=== PATIENT | female | born 1935 | race Caucasian/White ===

== ENCOUNTER 2023-04-11 15:46 | Emergency (ER) | payer MEDICARE, BC, SELFPAY ==
[2023-04-11] VITALS (8 sets, daily range): BP systolic 144–223; BP diastolic 86–117; BMI 23.0
--- NOTE | 2023-04-11 18:03 | EDRN ---
Dr. Molina at the pts bedside and made aware of the pts elevated blood pressure
--- NOTE | 2023-04-11 18:13 | ED.GENMED ---
History of Present Illness
General
Chief Complaint: Fall
Source: patient and other ([facility])
Time Seen by Provider: 04/11/23 17:59
Travel History
Have you had any contact with someone who has COVID-19?: No
Do you have any symptoms of coronavirus? Fever > 100 degrees, chills, cough, shortness of breath, sore throat, loss of taste or smell, muscle aches, or headache?: No
History of Present Illness
History of Present Illness:
This patient is an 87-year-old female presents emergency department after suffering a fall. Her caregiver who witnessed this was with her then and now at bedside she describes the patient as pulling her walker up the driveway and suffered a
mechanical fall. She suffered abrasions to the left side of her face. There was no loss conscious. Patient is not on thinners.She denies any complaints at this time. She specifically denies neck pain, headache, dizziness, chest pain, shortness
of breath, or other complaints. Patient has a history of multiple falls particularly given her history of Parkinson's
Past History
Past History
ED Past Medical History: Arrthythmia (Atrial fib), GERD, HTN, Hypercholesterolemia, Hypothyroidism and Other (Parkinson's Disease, Overactive bladder)
ED Past Surgical History: Cardiac (Pacemaker), Gynecological (Hysterectomy), Orthopedic and Tonsilectomy
Patient has exhibited threatening behavior?: No
PSI?: No
Social History
Tobacco: Non-smoker
Alcohol: None
Drug: None
Personal:
Living: with family
Employment: Retired
Family History
Family History: Other (nc)
Phy Exam
Physical Exam
Physical Exam:
GENERAL: Alert , in no apparent distress
EYE: pupils equal and reactive, no photophobia , EOMI without pain
NECK: Supple, no significant adenopathy, no midline ttp.
ENT: o/p clr, mmm, no intraoral inj, no hemotymp. There is bruising/mild sts L cheek area, and abrasion lower chin. No laceration, step off, bony tenderness, crepitus. No bergman/raccoon.
CARDIAC: Regular rate and rhythm .
LUNGS: Clear breath sounds bilaterally, no acute respiratory distress, no wheezes/rales/rhonchi
ABDOMEN: Soft, without focal tenderness, no r/g, no cvat
NEUROLOGICAL: Alert , pleasant, conversant, maee, no facial droop, speech clear
SKIN: Warm and dry, skin intact except for abrasion on face.
MUSCULOSKELETAL: No edema, well perfused.
PSYCH: Normal and appropriate interaction.
Course
Orders/Labs/Results
Orders:
Orders
04/11/23 15:[address] [CT Head W/o Iv Contrast] Urgent
Comment:
Reason For Exam: fall with head strike
04/11/23 19:19
Metoprolol [Lopressor] 2.5 mg IV NOW STA
04/11/23 20:14
Metoprolol [Lopressor] 2.5 mg IV NOW STA
Vital Signs
Initial and Last Documented VS:
Initial Vital Signs
Temp Pulse Resp BP Pulse Ox
97.9 F 76 16 194/114 100
04/11/23 15:50 04/11/23 15:50 04/11/23 15:50 04/11/23 15:50 04/11/23 15:50
Last Documented Vital Signs
Temp Pulse Resp BP Pulse Ox
97.9 F 75 15 144/86 96
04/11/23 15:50 04/11/23 21:00 04/11/23 21:00 04/11/23 21:00 04/11/23 21:00
*Critical Care Note
Total Time (30-74mins, 75-104mins- exclusive of procedures): Not Applicable
Update Note
Update Note:
Patient presents to the Emergency Department with ___fall
Number and Complexity of Problems Addressed at the Encounter
� Chronic conditions affecting care:
� Acute Exacerbation and/or Progression of Chronic Illness:
� Differential Diagnosis includes:but not limited to: intracranail bleed/injury, concussion, facial fracture, etc.
Amount and/or Complexity of Data to be Reviewed and Analyzed
� I performed an independent evaluation of and my interpretation is:
EKG:
CT:head ct nad
Xrays:
Laboratory Studies:
Other:
� Review of other/old records reveals: multiple visits in past, htn persistent
� Clinical information was obtained by an independent historian:
� Prescriptions/Medications Considered but not given:
� Further testing considered but not performed:
Risk of Complications and/or Morbidity or Mortality of Patient Management
� Social determinants of health affecting care:
� Discussion with other providers (PCP, Hospitalists, Consultants, etc):
� Escalation of care including admission/observation vs risk of discharge considered: Pt without complaints, however bp quite elevated. Pt taking her pm meds right now.
ED Attending Note
-
Portions of this chart may have been created with voice recognition software.� Occasional wrong word or��sound alike� substitutions may have occurred due to the inherent limitations of voice recognition software.
Discharge Plan
Departure
Patient Disposition: Home (Routine Discharge)
Date of Disposition: 04/11/23
Time of Disposition: 21:12
Patient with high blood pressure during this ER visit?: Yes
Condition: Good
Discharge Problem:
Abrasion, Fall
Instructions: Preventing falls in adults, Skin Abrasions (DC), BLOOD PRESSURE
Prescriptions:
No Action
rosuvastatin 5 MG tablet
5 mg PO QPM
rivastigmine 1 EACH patch 24 hour
13.3 mg transdermal DAILY
Patient Comments:
05/04/22 patient has patch on right back shoulder
memantine 10 MG tablet
10 mg PO BID
losartan 50 MG tablet
50 mg PO BID
cholecalciferol (vitamin D3) 1,000 UNITS tablet
2,000 units PO DAILY
sotalol 80 MG tablet
80 mg PO BID Qty: 60 0RF
levothyroxine [Synthroid] 75 mcg Tablet
75 mcg PO DAILY
acetaminophen [Tylenol] 325 mg Tablet
325 mg PO Q6H PRN (Reason: mild pain)
diltiazem HCl 120 MG capsule,extended release 24hr
120 mg PO BID
carbidopa-levodopa 25-100 mg tablet
2 tab PO QPM@2000
carbidopa-levodopa 25-100 mg tablet
3 tab PO DAILY@0800,1200,1600
sennosides 8.6 mg Tablet
8.6 mg PO DAILY PRN (Reason: CONSTIPATION)
acetaminophen 500 mg Tablet
500 mg PO Q6H PRN (Reason: PAIN)
fluticasone propionate 50 mcg/actuation [place],Suspension
1 spray INTRANASAL PRN PRN (Reason: ALLERGY)
Metamucil Packet
1 packet PO DAILY
Referrals:
Jostin De La O Jr., DO [Family Provider] - Tomorrow
Activity Restrictions/Additional Instructions:
YOUR BLOOD PRESSURE IS ELEVATED TODAY. PLEASE TAKE YOUR MEDICATIONS USUAL, AND HAVE YOUR BLOOD PRESSURE RECHECKED WITHIN 24-48 HOURS. IF YOU DEVELOP FEVER, CHEST PAIN, TROUBLE BREATHING, NUMBNESS, NECK PAIN, SEVERE HEADACHE, ABDOMINAL PAIN,
BLEEDING, CHANGE IN VISION, OR OTHER WORRISOME SIGNS, GO TO THE ER IMMEDIATELY!
Interventions
Interventions:
*Risk Screen - Suicide Last Done: 04/11/23 15:50
*General Assessment Last Done: 04/11/23 15:50
*Neglect/Abuse Screening Last Done: 04/11/23 15:50
ED- Fall Risk Assessment Last Done: 04/11/23 17:56
*ED COVID-19 Vaccine History Last Done: 04/11/23 15:50
ED-Musculoskeletal Assessment Last Done: 04/11/23 17:21
ED- Neurological Assessment Last Done: 04/11/23 17:56
ED-Skin Assessment Last Done: 04/11/23 17:56
--- NOTE | 2023-04-11 18:25 | EDRN ---
this RN cleansed the pts left cheek abrasion and chin abrasion and applied antibiotic ointment on the sites, Dr. Molina was notified
[2023-04-11] MEDS: LOPRESSOR 2.5 MG IV ×2 (19:33→20:19)
== END 2023-04-11 21:34 | disposition home or self-care (01) ==
LOC: EMR 15:46
PROVIDERS: EMERGENCY PHYSICIAN Emergency Medicine; FAMILY PHYSICIAN Family Medicine
DX: S00.81XA Abrasion of other part of head, initial encounter (principal); X58.XXXA Exposure to other specified factors, initial encounter
CPT/HCPCS: 99284; 96374; 96376; 70450

== ENCOUNTER → 2023-04-20 14:54 | Outpatient (REF) | payer MEDICARE, BC, SELFPAY ==
[2023-04-20 17:43] LABS: Urine Albumin Negative (Neg - Trace); Urine Bilirubin Negative (Negative); Urine Character Clear (Clear); Urine Color Yellow; Urine Glucose Negative (Negative); Urine Ketone Trace (Negative); Urine Leukocyte Negative (Negative); Urine Nitrite Negative (Negative); Urine Occult Blood Trace (Negative); Urine Specific Gravity 1.015 (<1.030); Urine Urobilinogen Negative (Neg - 1+)
[2023-04-20 18:05] LABS: Urine Squamous Cell >30 /LPF (Few); Urine White Cell 0-2 /HPF (0-5)
== END ==
LOC: RAD 14:54
PROVIDERS: ATTENDING PHYSICIAN Family Medicine
DX: R07.89 Other chest pain (principal); R41.0 Disorientation, unspecified
CPT/HCPCS: 71101; 81003; 81015; 87086

== ENCOUNTER 2023-05-02 16:48 | Observation (INO) | payer MEDICARE, BC, SELFPAY ==
[2023-05-02] VITALS (8 sets, daily range): BP systolic 121–188; BP diastolic 78–108; BMI 21.5
[2023-05-02 14:17] LABS: Glucose - Point of Care 82 mg/dl (70-99)
--- NOTE | 2023-05-02 14:24 | CON.NEURO ---
Neuro Assessment/Plan
Assessment
IMPRESSIONS/RECOMMENDATIONS:
Abrupt recurrence of syncope and suggested right-sided weakness in a patient with a prior longstanding history of Parkinson's
Patient also has a longstanding history of recurrent falling and 'vasovagal syncope' suggestive of orthostatic hypotension
Plan
Would start anticoagulation as therapy for atrial fibrillation and reduce the patient's ambulation if there is concern regarding ambulation dysfunction producing risk of subdural hematoma and other issues
Initiate abdominal binder to reduce likely orthostasis
Follow orthostatic blood pressures
Continue patient's usual carbidopa levodopa dosed as 25/100 3 tabs 3 times a day and 2 tabs at bedtime
Rehabilitation evaluations especially speech therapy
Continue memantine and rivastigmine for memory stabilization
Check blood work for additional metabolic abnormalities which may be producing recurrent syncope
No clear evidence patient would benefit from additional neuroimaging
Will continue to follow patient. Thank you.
Consultation
Order
Date of Consultation: 05/02/23
Requesting Provider: Emergency department physician
Reason for Consult: Stroke alert
Subjective/Objective
Subjective Data
Date of Service: May 02, 2023
Right-handed
Patient is known to my esteemed colleague due to a longstanding history of Parkinson's disease for which patient has been treated with carbidopa/levodopa. Due to a history of orthostasis, the patient has been given CHRISTIANA stockings. According to
medical records, the patient has been evaluated at [facility] neurology with a described gait dysfunction beginning in 2013 associated with slowing of movements. In 2020 her MoCA result was 16 out of 30 patient was also described at that time as
having REM sleep behavior disorder. For this issue she was placed on donepezil later changed to memantine and rivastigmine.
Today, the patient was in her usual state of health at 1230 hrs., found on the floor at 1320 hrs. when EMS arrived, they found that her weaker on the right than the contralateral side leading to stroke alert called prior to the patient's arrival at
this [facility]'s emergency department. The patient was also described as having a mild decline in patient initially. The patient himself has no recall for these events.
Objective Data
Vital Signs
Temp Pulse Resp BP Pulse Ox
36.6 C 86 14 155/98 99
05/02/23 14:23 05/02/23 14:07 05/02/23 14:07 05/02/23 14:07 05/02/23 14:15
Patient Allergies
bisacodyl [From Dulcolax (bisacodyl)] Allergy (Verified 02/04/23 14:14)
Nausea
CVA Assessment
Onset of Stroke Symptoms
Onset of symptoms known: Yes
Date of onset of symptoms: 05/02/23
Time of onset of symptoms: 13:20
Time pt last seen normal is known: Yes
Date last time pt seen normal: 05/02/23
Time last time pt seen normal: 12:30
NIH Stroke Score
Level of Consciousness: 0 - Alert
LOC Questions: 1-Answers one correctly
LOC Commands: 1-Performs one correctly
Best Horizontal Gaze: 0-Normal
Visual Shell: 0=Normal, no visual loss
Facial Palsy: 0=Normal, symmetrical
Motor - Right Arm: 0=No drift 10 seconds
Motor - Left Arm: 0=No drift 10 seconds
Motor - Right Le-No drift 5 seconds
Motor - Left Le-No drift 5 seconds
Limb Ataxia: 0-Absent
Sensation: 0-Normal
Best Language: 1-Mild aphasia
Dysarthria: 1-Mild slurring
Extinction and Inattention: 0-No abnormality
Total Score:: 4
Tenecteplase Contraindications
Inclusion and Exclusion criteria reviewed: Yes
IAT Contraindications: NIHSS < 6
Review of Systems
-
Unable to obtain full review of systems at this time due to: Dementia
History Source: Patient
All other systems: Reviewed and negative
EENT: Negative Decreased Vision or Swallowing Difficulty
Respiratory: Trouble Breathing
Cardiac: Negative Chest Pain
Abdomen/GI: Constipated; Negative Incontinence of Stool
Genitourinary: Negative Incontinence
Musculoskeletal: Neck Pain; Negative Back Pain
Neuro: Negative Dizzy or Headache
Physical Exam
-
General: No Apparent Distress and Appears Stated Age
Eyes: Round OU, [place] Conjunctivae and No Ptosis; Negative Able to visualize OU
HEENT: Anicteric and Moist Mucous Membranes
Neck: Full Range of Motion
Respiratory: No Dyspnea
Cardiac: No JVD
GI: Non-distended
Skin: Unremarkable
Extremities: No Clubbing, No Cyanosis and No Edema
Psych: Negative Intact Judgement/Insight
Extended Neurological Exam
Mood & Affect: Mood Unremarkable and Affect Unremarkable
Attention Span & Concentration: Awake, Alert, Interactive and Severe Difficulty with 2 Step Request
Memory: Able to Recall (Month and year) and Unable to Recall Personal History
Tremor: Hand Tremor Absent
Involuntary Movement: Other (Mild bilateral shoulder dyskinetic movements, rarely)
Speech: Mildly Reduced Output; Negative Quality Unremarkable (Significantly hypophonic)
Cranial Nerve II: Left Eye: Pupillary Reactivity Unremarkable, Pupillary Size Unremarkable and Visual Shell Grossly Intact
Cranial Nerve II: Right Eye: Pupillary Reactivity Unremarkable, Pupillary Size Unremarkable and Visual Shell Grossly Intact
Cranial Nerves III, IV, : Extraocular Movement: Other (Mild reduction with upgaze, otherwise intact)
Cranial Nerve VII: Facial Symmetry: Normal Facial Symmetry
Cranial Nerve VIII: Hearing: Negative Unremarkable Hearing to Normal Conversational Volume
Cranial Nerves IX, X: Palate Movement: Palate Elevation Symmetric
Cranial Nerve XI: Shoulder Shrug: Unremarkable
Cranial Nerve XII: Tongue Protusion: Midline
Muscle Strength, Overall: Other (Moderate parkinsonism throughout with cogwheeling more in the left arm than the right, legs with cogwheeling rigidity bilaterally, overall no tremors seen mild bradykinesia of the face)
Muscle Bulk & Tone: Bulk Unremarkable and Tone Unremarkable
Pronator Drift: No Drift in Upper Extremities
Deep Tendon Reflexes: Trace Throughout
Cold Sensation: Unable to Assess
Vibration Sensation: Unable to Assess
Touch Sensation: Unremarkable
Coordination: Reaches for Objects without Difficulty
Babinski Sign: Absent Bilaterally
Data Reviewed
-
CT Head: Report Reviewed and Image Reviewed
Orthostatic Testing: Ordered
Labs: Report Reviewed
Reviewed with: Physician, Nurse and Patient
Old Records: Summarized
Medications
-
Home Medications
Medication Instructions Recorded
rosuvastatin 5 mg tablet 5 mg PO QPM High cholesterol 01/12/20
rivastigmine 9.5 mg/24 hour 13.3 mg transdermal DAILY dementia 06/15/21
transdermal patch
memantine 10 mg tablet 10 mg PO BID dementia 06/23/21
cholecalciferol (vitamin D3) 25 2,000 units PO DAILY Supplement 07/16/21
mcg (1,000 unit) tablet
losartan 50 mg tablet 50 mg PO BID Blood pressure 07/16/21
sotalol 80 mg tablet 80 mg PO BID #60 tabs 07/18/21
levothyroxine 75 mcg tablet 75 mcg PO DAILY Thyroid 02/11/22
(Synthroid)
carbidopa 25 mg-levodopa 100 mg 2 tab PO QPM@1999 Neurological 05/04/22
tablet Condition
carbidopa 25 mg-levodopa 100 mg 3 tab PO DAILY@0800,1200,1600 05/04/22
tablet Neurological Condition
diltiazem HCl 120 mg 120 mg PO BID Blood Pressure 05/04/22
capsule,extended release 24 hr
acetaminophen 500 mg tablet 500 mg PO Q6H PRN PAIN 08/15/22
fluticasone propionate 50 1 spray intranasal PRN PRN ALLERGY 08/15/22
mcg/actuation nasal
spray,suspension
sennosides 8.6 mg tablet 8.6 mg PO DAILY PRN CONSTIPATION 08/15/22
psyllium 1 packet PO DAILY 04/11/23
Crancaps 1 cap PO DAILY 05/02/23
Thc Gummies 1 gummy PO HS PRN sleep 05/02/23
docusate sodium 100 mg capsule 100 mg PO DAILY@199905/02/23
melatonin 5 mg tablet 5 - 10 mg PO HS PRN sleep 05/02/23
vibegron 75 mg tablet (Gemtesa) 75 mg PO DAILY 05/02/23
Past History
Past History
ED Past Medical History: Arrthythmia (Atrial fib), GERD, HTN, Hypercholesterolemia, Hypothyroidism, Other (Parkinson's Disease, Overactive bladder, vitamin D deficiency, Raynaud's, TMJ, vasovagal syncope, xerophthalmia) and Other (Thrombocytopenia
resolved 2020, urinary tract infections)
ED Past Surgical History: Cardiac (Pacemaker), Gynecological (Hysterectomy), Orthopedic (Pelvic fracture 2020), Tonsilectomy and Other (Cataract extraction, bunionectomy, bilateral eyebrow lifts)
Patient has exhibited threatening behavior?: No
PSI?: No
Social History
Tobacco: Non-smoker
Alcohol: None
Drug: None
Personal:
Living: with family
Employment: Retired
Family History
Family History: Other (review and non-contributory)
--- NOTE | 2023-05-02 14:40 | ED.GENMED ---
History of Present Illness
General
Chief Complaint: CVA/TIA Symptoms
Source: patient and ambulance crew
Exam Limitations: none
Time Seen by Provider: 05/02/23 14:17
Travel History
Have you had any contact with someone who has COVID-19?: No
Do you have any symptoms of coronavirus? Fever > 100 degrees, chills, cough, shortness of breath, sore throat, loss of taste or smell, muscle aches, or headache?: No
History of Present Illness
History of Present Illness:
See MDM
Past History
Past History
ED Past Medical History: Arrthythmia (Atrial fib), GERD, HTN, Hypercholesterolemia, Hypothyroidism and Other (Parkinson's Disease, Overactive bladder)
ED Past Surgical History: Cardiac (Pacemaker), Gynecological (Hysterectomy), Orthopedic and Tonsilectomy
Patient has exhibited threatening behavior?: No
PSI?: No
Social History
Tobacco: Non-smoker
Alcohol: None
Drug: None
Personal:
Living: with family
Employment: Retired
Family History
Family History: Other (review and non-contributory)
Phy Exam
Physical Exam
Physical Exam:
See MDM
Scores
NIH Stroke Score
Level of Consciousness: 0 - Alert
LOC Questions: 0-Answers both correctly
LOC Commands: 0-Performs both correctly
Best Horizontal Gaze: 0-Normal
Visual Shell: 0=Normal, no visual loss
Facial Palsy: 0=Normal, symmetrical
Motor - Right Arm: 0=No drift 10 seconds
Motor - Left Arm: 0=No drift 10 seconds
Motor - Right Le-No drift 5 seconds
Motor - Left Le-No drift 5 seconds
Limb Ataxia: 0-Absent
Sensation: 0-Normal
Best Language: 0-No aphasia
Dysarthria: 0-Normal
Extinction and Inattention: 0-No abnormality
Total Score:: 0
Course
Orders/Labs/Results
Orders:
Orders
05/02/23 14:06
CT Head W/o Cont STROKE ALERT Stat
Reason For Exam: right sided droop, slurred speech
05/02/23 14:14
EKG [Electrocardiogram (*1)] Urgent
Reason for Study: Fatigue / Weakness
EKG- Treatment ONCE
05/02/23 14:21
Consult Neurology [NEUROLOGY CONSULT] Urgent
Consulting Provider: Natalio Aaron
Was physician already notified: Yes
05/02/23 14:24
Complete Blood Count/With Diff Urgent
Comprehensive Metabolic Panel Urgent
Prothrombin Time Urgent
Abnormal Lab Results
05/02/23
14:24
RBC 4.15 L 10^6/uL
(4.20-5.40)
Absolute Lymphs (auto) 1.1 L 10^3/uL
(1.2-3.4)
Absolute Monos (auto) 0.7 H 10^3/uL
(0.1-0.6)
Immature Gran % 0.6 H %
(0-0.5)
Lymphocytes % 15.3 L %
(20.5-51.1)
Monocytes % 10.2 H %
(1.7-9.3)
Sodium 133 L mmol/L
(135-145)
BUN 21 H mg/dl
(7-17)
05/02/23 14:24
05/02/23 14:24
Vital Signs
Initial and Last Documented VS:
Initial Vital Signs
Pulse Resp BP Pulse Ox
86 14 155/98 98
05/02/23 14:07 05/02/23 14:07 05/02/23 14:07 05/02/23 14:07
Last Documented Vital Signs
Temp Pulse Resp BP Pulse Ox
97.8 F 75 20 185/108 100
05/02/23 14:23 05/02/23 15:04 05/02/23 15:04 05/02/23 15:04 05/02/23 14:45
MDM/Problems Addressed
Differential Diagnosis Includes:
HPI and MDM Narrative:
87-year-old female presenting with slurred speech and unilateral weakness. EMS stating that the timeframe was within 30 minutes from last known normal. Stroke alert was called prior to arrival. Patient was met by myself and quickly met by
neurology. On arrival, all symptoms resolved patient offers no complaint
Given the concern for TIA, will obtain CT head and
Physical exam
General: Well appearing and non-toxic
HEENT: protecting airway. Mildly dry mucous membranes
Neck: appears supple
CV: No evidence of cyanosis. Regular rate and rhythm
Resp: No accessory muscle use
Abd: Non-distended
Extremities: No deformities
Neuro: alert. No focal deficits
Psych: Normal affect
Skin: Intact
Problems Addressed including Acute and Chronic Conditions affecting care:
1. TIA
Acuity: acute
Prognosis: stable
Details: Neurology involved. CT head negative
Updates
CT head negative. Neuro following. Will admit
Differential Diagnosis (but not limited to): TIA, stroke, hyponatremia
Testing considered: CT angiogram head and neck
Drug therapy (if applicable): OTC meds, please see d/c instruction regarding Rx drugs
Amount and/or Complexity of Data Reviewed
Clinical info obtained from: Patient
External data reviewed: N/A
Labs I independently reviewed (but not limited to): Sodium 133
Radiology: The CT scan was personally and independently reviewed. In addition, official CT report reviewed.
Pulse Ox: not hypoxic
EKG independently reviewed: Paced rhythm, left axis, no STEMI
Medical Scientific Liaison: Sinus rhythm
Critical Care: N/A
Risk of Complication:
Social Determinants of health: Good social support
Discussed with other providers: neurologist, hospital
Escalation of Care includes Admit/Obs: Given the fall risk and the TIA, will admit for further work
Occasional wrong word or 'sound a like' substitutions may have occurred due to the inherent limitations of voice recognition software. Read the chart carefully and recognize, using context, where substitutions have occurred.
*Critical Care Note
Total Time (30-74mins, 75-104mins- exclusive of procedures): Not Applicable
ED Attending Note
-
Portions of this chart may have been created with voice recognition software.� Occasional wrong word or��sound alike� substitutions may have occurred due to the inherent limitations of voice recognition software.
Discharge Plan
Departure
Patient Disposition: Admit
Date of Disposition: 05/02/23
Time of Disposition: 15:56
Admit to: Telemetry
Presentation/result/management discussed w/ accepting MD/DO: Hospitalist
Discharge Problem:
Brain TIA
Prescriptions:
No Action
rosuvastatin 5 MG tablet
5 mg PO DAILY@1999
rivastigmine 1 EACH patch 24 hour
13.3 mg transdermal DAILY
Patient Comments:
05/04/22 patient has patch on right back shoulder
memantine 10 MG tablet
10 mg PO BID
losartan 50 MG tablet
50 mg PO DAILY@1999
cholecalciferol (vitamin D3) 1,000 UNITS tablet
2,000 units PO DAILY
sotalol 80 MG tablet
80 mg PO BID Qty: 60 0RF
levothyroxine [Synthroid] 75 mcg Tablet
75 mcg PO DAILY@0700
diltiazem HCl 120 MG capsule,extended release 24hr
120 mg PO DAILY
carbidopa-levodopa 25-100 mg tablet
2 tab PO DAILY@1999
carbidopa-levodopa 25-100 mg tablet
3 tab PO DAILY@0800,1200,1600
sennosides 8.6 mg Tablet
8.6 mg PO DAILY PRN (Reason: CONSTIPATION)
acetaminophen 500 mg Tablet
500 mg PO Q6H PRN (Reason: mild pain)
fluticasone propionate 50 mcg/actuation [place],Suspension
1 spray INTRANASAL PRN PRN (Reason: ALLERGY)
Metamucil Packet
1 packet PO DAILY
docusate sodium 100 mg Capsule
100 mg PO DAILY@1999
melatonin 5 mg Tablet
5 - 10 mg PO HS PRN (Reason: sleep)
Gemtesa 75 mg tablet
75 mg PO DAILY
Crancaps
1 cap PO DAILY
Thc Gummies
1 gummy PO HS PRN (Reason: sleep)
Referrals:
Jostin De La O Jr., DO [Family Provider] -
Interventions
Interventions:
*Risk Screen - Suicide Last Done: 05/02/23 14:10
*General Assessment Last Done: 05/02/23 14:10
*Neglect/Abuse Screening Last Done: 05/02/23 14:10
*ED COVID-19 Vaccine History Last Done: 05/02/23 14:10
ED- Pulmonary Assessment Last Done: 05/02/23 14:15
ED- Neurological Assessment Last Done: 05/02/23 14:15
ED- Cardiac Assessment Last Done: 05/02/23 14:15
ED Swallowing Screen Last Done: 05/02/23 14:54
[2023-05-02 14:56] LABS: % Basophils 0.7 % (0-2); % Eosinophils 3.1 % (0-6); % Immature Granulocytes 0.6 % (0-0.5); % Lymphocytes 15.3 % (20.5-51.1); % Monocytes 10.2 % (1.7-9.3); % Neutrophils 70.1 % (42.2-75.2); Absolute Basophils 0.1 10^3/uL (0-0.2); Absolute Eosinophils 0.2 10^3/uL (0-0.7); Absolute Lymphocytes 1.1 10^3/uL (1.2-3.4); Absolute Monocytes 0.7 10^3/uL (0.1-0.6); Absolute Neutrophils 4.9 10^3/uL (1.4-6.5); Hematocrit 37.8 % (37.0-47.0); Hemoglobin 12.8 g/dL (12.0-16.0); Mean Corp Hgb Conc. 33.9 g/dL (33.0-37.0); Mean Corpuscular Hgb 30.8 pg (27.0-31.0); Mean Corpuscular Volume 91.1 fL (81.0-99.0); Mean Platelet Volume 10.2 fL (7.4-10.4); Nucleated Red Blood Cells % 0 %; Platelet Count 131 10^3/uL (130-400); Red Blood Cell Count 4.15 10^6/uL (4.20-5.40); Red Cell Dist. Width 12.2 % (11.5-14.5)
[2023-05-02 15:08] LABS: INR 1.04; PT 13.4 Sec (11.4-14.6)
[2023-05-02 15:24] LABS: ALT (SGPT) < 10 U/L (0-35); AST (SGOT) 21 U/L (14-36); Albumin 3.5 g/dl (3.5-5.0); Alkaline Phosphatase 97 U/L (38-126); Blood Urea Nitrogen 21 mg/dl (7-17); Calcium 8.9 mg/dl (8.4-10.2); Carbon Dioxide 27 mmol/L (22-30); Chloride 104 mmol/L (98-107); Glucose 88 mg/dl (70-99); Potassium 3.9 mmol/L (3.5-5.1); Sodium 133 mmol/L (135-145); Total Bilirubin 0.9 mg/dl (0.2-1.3); Total Protein 6.4 g/dl (6.3-8.2); eGFR > 60.00
--- NOTE | 2023-05-02 15:57 | HPS.HSE ---
Addendum entered and electronically signed by Jacqueline Chávez MD 05/02/23 17:27:
Per group discussion with cardiology and neurology collectively in agreement with aneurysm anticoagulation because of fall risk, so will DC heparin drip and start heparin SQ twice daily.
Original Note:
Family Physician
-
Family Physician: Jostin De La O Jr.
Chief Complaint
-
Syncopal episode
History of Present Illness
87-year-old female with history of A-fib status post pacemaker on anticoagulation from March 19, 2023 because of the fall risk, Parkinson disease, hypertension, brought to the hospital after being found unresponsive at home.
She is accompanied by a caregiver who lives with her 24-hour daily, she did this morning she was at her usual status and she went absolutely to her bedroom and shortly after the caregiver tried to check on her and called her she did not respond when
she went over to check on her she was laying next to her bed somewhat responsive, when she: Initially was not responsive but she came alone, she called 911 and she was able to give her name and birthdate, they try to get her up she noticed was hard
because her right side was weak and limiting also her speech was dysarthric, brought to the ER where stroke alert was called and seen by neurology initially in CT head was negative, also in the ER his symptoms all resolved and currently back to her
baseline, pleasant and mildly confused but able to provide some information and caregiver at the bedside provide all the information. Patient denies fever or chill or cough or congestion she has chronic urinary incontinence and constipation, denies
any chest pain or shortness of breath or nausea or vomiting, she has been eating and drinking less lately.
Seen by neurology, patient have history of A-fib and taken off Eliquis because of fall risk, neurology recommended to be started back on anticoagulation.
Called her daughter Chela and updated on all the question answered as well. The caregiver called the daughter
Medical History
Past Medical History
Past Medical History: Reports Other
Additional Past Medical History:
Past medical history reviewed:
A-fib anticoagulation
Parkinson disease
Dilatory dysfunction
Hypertension
Hypothyroidism
Dementia
Urinary incontinence.
Status post pacemaker placement
Social history: Lives at home with 24-hour care. 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
Family history: Reviewed and noncontributory
Past Surgical History: Reports Other
Social History
Unable to obtain full social history at this time due to: Other
Family History
Family History: Other
Allergies / Home Medications
Allergies reflects when Allergies were last updated in [facility].
Home Medications with original date entered in [facility]
Allergy/Medication List:
Allergies
Allergy/AdvReac Type Severity Reaction Status Date / Time
bisacodyl Allergy Nausea Verified 02/04/23 14:14
[From Dulcolax (bisacodyl)]
Home Medications
rosuvastatin 5 mg tablet 5 mg PO DAILY@1999 High cholesterol 01/12/20
rivastigmine 9.5 mg/24 hour transdermal patch 13.3 mg transdermal DAILY Neurological Condition 06/15/21
memantine 10 mg tablet 10 mg PO BID dementia 06/23/21
cholecalciferol (vitamin D3) 25 mcg (1,000 unit) tablet 2,000 units PO DAILY Supplement 07/16/21
losartan 50 mg tablet 50 mg PO DAILY@1999 Blood pressure 07/16/21
levothyroxine 75 mcg tablet (Synthroid) 75 mcg PO DAILY@0700 Thyroid 02/11/22
carbidopa 25 mg-levodopa 100 mg tablet 2 tab PO DAILY@1999 Neurological Condition 05/04/22
carbidopa 25 mg-levodopa 100 mg tablet 3 tab PO DAILY@0800,1200,1600 Neurological Condition 05/04/22
diltiazem HCl 120 mg capsule,extended release 24 hr 120 mg PO DAILY Blood Pressure 05/04/22
acetaminophen 500 mg tablet 500 mg PO Q6H PRN mild pain 08/15/22
fluticasone propionate 50 mcg/actuation nasal spray,suspension 1 spray intranasal PRN PRN ALLERGY 08/15/22
sennosides 8.6 mg tablet 8.6 mg PO DAILY PRN CONSTIPATION 08/15/22
psyllium 1 packet PO DAILY Constipation 04/11/23
Crancaps 1 cap PO DAILY Supplement 05/02/23
Thc Gummies 1 gummy PO HS PRN sleep 05/02/23
docusate sodium 100 mg capsule 100 mg PO DAILY@2000 Constipation 05/02/23
melatonin 5 mg tablet 5 - 10 mg PO HS PRN sleep 05/02/23
sotalol 80 mg tablet 80 mg PO BID Arrhythmia 05/02/23
vibegron 75 mg tablet (Gemtesa) 75 mg PO DAILY Urinary Issue 05/02/23
Review of Systems
-
A 12 point ROS was completed and negative except as noted: Yes
Physical Exam
Vital Signs
Vital Signs
Temp Pulse Resp BP Pulse Ox
97.8 F 75 20 185/108 100
05/02/23 14:23 05/02/23 15:04 05/02/23 15:04 05/02/23 15:04 05/02/23 14:45
Physical exam:
General: Lethargic but responsive and oriented x3, mildly and pleasantly confused, not in distress and answers all the question and look for help from her caregiver for assistance occasionally.
HEENT: No active discharge, ecchymosis or bruising, moist lips, tongue and mucous membrane.
Eyes: No discharge or red conjunctiva, no nystagmus, pupils are reactive and equal
Neck:Supple, no JVD no bruit no goiter.
Respiratory: Normal AP contour and diameter, normal chest wall movement, normal respiratory effort, no respiratory distress,
Lungs: Good air entry bilaterally, no wheezing or rhonchi, no rales or crackles
Heart: S1, S2 regular, normal rate, no added sound. Pacemaker in the left upper chest
Gastrointestinal: Positive bowel sounds, soft, nontender, no guarding or rigidity or organomegaly
Musculoskeletal: , no chest wall abnormality or tenderness. All joints and extremities have good range of motion, no muscle tenderness or any joint swelling or tenderness.
Extremities: Mild lower extremity pitting edema, good peripheral pulses, good range of motion
Skin: Warm and dry, no ulceration, normal color.
Neurological: Awake, alert and oriented x3, cranial nerve II-XII grossly intact, speech clear and comprehensive, good muscle tone, normal sensory and motor function
Psychiatric: Normal mood, questionable thought and judgment, normal affect,
Physical Exam
General: Other
Laboratory Results
-
05/02/23 14:24
05/02/23 14:24
Laboratory Results
PT 13.4 Sec (11.4-14.6) 05/02/23 14:24
INR 1.04 05/02/23 14:24
Total Bilirubin 0.9 mg/dl (0.2-1.3) 05/02/23 14:24
AST 21 U/L (14-36) 05/02/23 14:24
ALT < 10 U/L (0-35) 05/02/23 14:24
Alkaline Phosphatase 97 U/L (38-126) 05/02/23 14:24
CT brain:
No acute intracranial abnormality noted. No acute intracranial hemorrhage. 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
transcortical infarct at this time.
EKG showed atrial paced rhythm rate around 76, CO 282, QTc 546, concern for right conduction delay. Left ventricular fascicular block. Given his of the prior septal infarct otherwise no acute abnormalities.
Data Reviewed
-
Diagnostic Radiology: Image Personally Visualized and interpreted, Discussed with Physician, Discussed with Patient and Discussed with Family
Medical Tests (Nuc Med, Echo, EKG etc): Image Personally Visualized and interpreted, Discussed with Physician, Discussed with Patient and Discussed with Family
Lab Data: Labs Reviewed by me, Discussed with Physician, Discussed with Patient and Discussed with Family
Old Records: Reviewed
Impression/Plan
-
IMPRESSION:
86-year-old female with history of Parkinson disease, brought to the hospital after a syncopal episode, no seizure-like activity witnessed.
Orthostatic hypotension, cardiac arrhythmia need to be considered, while stroke or TIA could be a possibility.
Syncope, stroke or TIA be a possibility
Cardiac arrhythmia need to be considered
Hypertensive urgency
Orthostatic hypotension.
She should be a possibility but unlikely.
History of A-fib off anticoagulation status post pacemaker
Chronic kidney disease
Dehydration
History of Parkinson disease
Ambulatory dysfunction
Potential hypothyroidism
Urine incontinence
PLAN:
Cardiac monitoring
Give a dose of hydralazine to bring her blood pressure down and then as needed for systolic more than 170
Follow cardiac enzymes
PT OT
Neurology input appreciated and will hold off further imaging as may not change the planning per neurology.
Restart anticoagulation per neurology recommendation, will start heparin drip to assess her functional status and risk for the following before considering put her back on Eliquis.
Discussed with cardiology
IV fluid
I will get a UA and culture if indicated
Statin
Started on heparin drip will hold off aspirin
Defer further workup and recommendation to neurology and cardiology
All discussed with the patient and caregiver and the daughter over the phone
CODE STATUS discussed with the daughter will be a full code for now
DVT prophylaxis is heparin drip
--- NOTE | 2023-05-02 17:30 | CON.CAR ---
Consultation
Consultation Request
Date/Time Consultation Requested: 05/02/2023 17: 00
Date/Time Consultation Performed: 05/02/2023 15: 30
Requesting Provider: Saira
Performing Provider: Ferny
Reason for Consultation: Fall versus syncope
Medical History
-
History of Present Illness:
Miroslava has past medical history of hypertension, hyperlipidemia, Parkinson's disease, dementia,� ambulatory dysfunction, falls, hypothyroidism, recurrent UTI, atrial fibrillation on anticoagulation (Eliquis), SSS with PPM in place, osteoarthritis
and chronic lower back pain with sciatica who was admitted to emergency room after she was found to be confused and disoriented and leaning towards her left side, found by caregiver.�
She was seen in July 2022 and felt to have a fall rather than syncope.
She was brought to the ER after caregiver noted that she had fallen. Unclear whether syncope versus fall. Patient is poor historian due to dementia. Caregiver went to check on her and when she did not respond she noted her laying next to her bed
somewhat responsive. She was felt to have right-sided weakness and speech was dysarthric. In the ER symptoms improved but is now admitted for further workup and treatment.
PMH:
Parkinson's disease
Dementia
Ambulatory dysfunction
Atrial fibrillation�anticoagulation discontinued in February 2023 due to frequent falls
Sick sinus syndrome, permanent pacemaker in place (Medtronic dual-chamber pacemaker placed July 17, 2021)
BRETT
Hypertension
Recurrent UTIs
Seizure, January 2022 in the setting of a UTI
Past Medical History
Past Medical History: Arrhythmias, Hypothyroidism and Other (See HPI, vitamin D deficiency, hyperactive bladder, cystocele, female urinary stress incontinence, osteopenia, GERD with Marie's esophagus, benign colon polyp, Raynaud's phenomenon,
seborrheic keratosis, lumbar ago, TMJ, hypoalbuminemia, seasonal allergic rhinitis, vasovagal syncope, fall with pel)
Past Surgical History: Gynecological (Hysterectomy 1975), Tonsilectomy and Other (Cataract extraction, bunionectomy, ptosis with eyebrow lives)
Social History
Tobacco: Non-Smoker
Alcohol: None
Drug: None
Personal:
Living: Alone (With 24-hour aides)
Employment: Retired
Family History
Family History: Other (Father of lung cancer, mother of dementia)
Allergies / Home Medications
Allergy/AdvReac Type Severity Reaction Status Date / Time
bisacodyl Allergy Nausea Verified 02/04/23 14:14
[From Dulcolax (bisacodyl)]
Medication Instructions Recorded Confirmed Type
rosuvastatin 5 mg tablet 5 mg PO DAILY@1999 High cholesterol 01/12/20 05/02/23 History
rivastigmine 9.5 mg/24 hour 13.3 mg transdermal DAILY 06/15/21 05/02/23 History
transdermal patch Neurological Condition
memantine 10 mg tablet 10 mg PO BID dementia 06/23/21 05/02/23 History
cholecalciferol (vitamin D3) 25 2,000 units PO DAILY Supplement 07/16/21 05/02/23 History
mcg (1,000 unit) tablet
losartan 50 mg tablet 50 mg PO DAILY@1999 Blood pressure 07/16/21 05/02/23 History
levothyroxine 75 mcg tablet 75 mcg PO DAILY@0700 Thyroid 02/11/22 05/02/23 History
(Synthroid)
carbidopa 25 mg-levodopa 100 mg 2 tab PO DAILY@1999 Neurological 05/04/22 05/02/23 History
tablet Condition
carbidopa 25 mg-levodopa 100 mg 3 tab PO DAILY@0800,1200,1600 05/04/22 05/02/23 History
tablet Neurological Condition
diltiazem HCl 120 mg 120 mg PO DAILY Blood Pressure 05/04/22 05/02/23 History
capsule,extended release 24 hr
acetaminophen 500 mg tablet 500 mg PO Q6H PRN mild pain 08/15/22 05/02/23 History
fluticasone propionate 50 1 spray intranasal PRN PRN ALLERGY 08/15/22 05/02/23 History
mcg/actuation nasal
spray,suspension
sennosides 8.6 mg tablet 8.6 mg PO DAILY PRN CONSTIPATION 08/15/22 05/02/23 History
psyllium 1 packet PO DAILY Constipation 04/11/23 05/02/23 History
Crancaps 1 cap PO DAILY Supplement 05/02/23 05/02/23 History
Thc Gummies 1 gummy PO HS PRN sleep 05/02/23 05/02/23 History
docusate sodium 100 mg capsule 100 mg PO DAILY@2000 Constipation 05/02/23 05/02/23 History
melatonin 5 mg tablet 5 - 10 mg PO HS PRN sleep 05/02/23 05/02/23 History
sotalol 80 mg tablet 80 mg PO BID Arrhythmia 05/02/23 05/02/23 History
vibegron 75 mg tablet (Gemtesa) 75 mg PO DAILY Urinary Issue 05/02/23 05/02/23 History
Review of Systems
-
Unable to obtain full review of systems at this time due to: Dementia
History Source: [facility]
All other systems: Negative unless noted
Constitutional: No Symptoms
EENT: No Symptoms
Respiratory: No Symptoms
Cardiac: No Symptoms
Abdomen/GI: No Symptoms
: No Symptoms
Musculoskeletal: Other (Frequent falls)
Skin: No Symptoms
Neurological: No Symptoms
Endocrine: No Symptoms
Hematologic/Lymphatic: No Symptoms
Physical Exam
Vital Signs
Temp Pulse Resp BP Pulse Ox
97.4 F 82 16 124/84 96
05/02/23 17:25 05/02/23 17:25 05/02/23 17:25 05/02/23 17:25 05/02/23 17:25
Lab Results
05/02/23 16:34
05/02/23 14:24
General: Awake but confused
Neck: Supple, no JVD, HJR, carotids +2 B/L, no bruits bilaterally.
Heart: Non displaced PMI, RRR, no murmurs, No S3, S4, no rubs.
Lungs: Clear to auscultation bilaterally, no wheeze, rhonchi, rubs bilaterally,
normal expiratory phase.
Abdomen: Normal bowel sounds, soft, non-tender, non-distended.
Extremities: No clubbing, cyanosis or edema bilaterally.
Neuro: Awake but confused
Impression / Plan
-
Impression:
Fall versus syncope
Right-sided weakness and dysarthria which seems to have improved
Parkinson's disease
Dementia
Ambulatory dysfunction
Atrial fibrillation� on anticoagulation (eliquis)
Sick sinus syndrome, permanent pacemaker in place (Medtronic dual-chamber pacemaker placed July 17, 2021)
BRETT
Hypertension
Recurrent UTIs
Seizure, January 2022 in the setting of a UTI
Plan:
She presents with possible syncope versus fall
May have been fall as she has had orthostasis in the past with prior falls
Will check orthostatics as well as pacer
There was suggestion of right-sided weakness and dysarthria on admission which seems to have improved
Patient was seen by neurology and anticoagulation was recommended
However patient's outpatient commercial lease administrator Dr. Coyle had spoken to family and anticoagulation was stopped in February 2023 given very high fall risk with multiple prior falls in the past
Would hold off on anticoagulation for now
We can review again with family after discussing again with Dr Coyle
Discussed with caregiver at bedside as well as neurology and admitting service
Data Reviewed
-
EKG: Tracing Personally Visualized and interpreted
Radiology: Report Reviewed by me
CT Scan: Report Reviewed by me
Medical Tests (Nuc Med, Echo etc): Report Reviewed by me
Labs: Labs Reviewed by me
Old Records: Reviewed
--- NOTE | 2023-05-02 18:00 | PTCARENOTE ---
Received patient from ED via stretcher. AAOx3, confused/forgetful at times. 24 hour home health aide at bed side. Assessed and oriented to room. [employer]-5. technology education teacher reading A-paced. Bed alarm placed for safety. Call gomez in close reach.
[2023-05-02] MEDS: NSS 1000 IV (18:25)
[2023-05-02] MEDS: BETAPACE 80 MG PO (20:09)
[2023-05-02] MEDS: CRESTOR 5 MG PO (20:09)
[2023-05-02] MEDS: NAMENDA 10 MG PO (20:09)
[2023-05-02] MEDS: SINEMET 25-100 2 TABLET PO (20:09)
[2023-05-02] MEDS: COLACE 100 MG PO (20:09)
[2023-05-02] MEDS: COZAAR 50 MG PO (20:09)
[2023-05-02] MEDS: HEPARIN 5000 UNITS SC (20:10)
[2023-05-02 20:50] LABS: Troponin I < 0.012 ng/ml
[2023-05-03] VITALS (9 sets, daily range): BP systolic 122–192; BP diastolic 69–115; PULSE 76–90
[2023-05-03] MEDS: APRESOLINE 10 MG IV ×2 (03:22→09:50)
[2023-05-03] MEDS: SYNTHROID 75 MCG PO (05:33)
[2023-05-03] MEDS: CARDIZEM CD 120 MG PO (06:01)
[2023-05-03] MEDS: BETAPACE 80 MG PO ×2 (06:01→20:06)
[2023-05-03 07:47] LABS: Hematocrit 42.3 % (37.0-47.0); Hemoglobin 14.4 g/dL (12.0-16.0); Mean Corpuscular Hgb 30.9 pg (27.0-31.0); Mean Corpuscular Volume 90.8 fL (81.0-99.0); Mean Platelet Volume 10.4 fL (7.4-10.4); Platelet Count 135 10^3/uL (130-400); Red Blood Cell Count 4.66 10^6/uL (4.20-5.40); Red Cell Dist. Width 12.2 % (11.5-14.5); White Blood Cell Count 6.4 10^3/uL (4.8-10.8)
--- NOTE | 2023-05-03 08:15 | W.PN.NEURO.1 ---
Addendum entered and electronically signed by Diallo Marquis MD 05/03/23 15:14:
In next 2-3 days at home recommend 100 mg qhs Gabapentin for insomnia which has been a significant issue.
Addendum entered and electronically signed by Diallo Marquis MD 05/03/23 13:56:
I saw and evaluated the patient I reviewed the note by Laurita Carter agree the findings:
87-year-old woman with a past no history of atrial fibrillation, Parkinson's disease who was found by her bed aide next to the bed caught between this and mirror furniture, she was NOT unreponsive but was awake and confused and able to respond with
some slurring of words and it seemed like some right-sided weakness. There do not seem to be any overt loss of consciousness or convulsive activity. Patient was briefly placed on heparin infusion here but has since been discontinued.
Patient does have frequent confusion as well as some hallucinations. No changes in medications recently.
Neurologic examination shows moderate Parkinson's disease with rigidity and bradykinesia. There are no findings of any cranial nerve deficits or any right-sided facial droop or right arm or leg weakness.
There is some pain on right shoulder palpation and passive range of motion of the right shoulder
CT head noncontrast with no acute infarction or hemorrhage
Assessment: Most likely this represents chronic ambulatory dysfunction and fall from moderately advanced Parkinson's disease which is associated with dementia at this point. No findings suggestive stroke on neurologic examination. Patient is felt
to be significantly high risk for chronic anticoagulation and I think it is reasonable to not pursue chronic anticoagulation in this patient given the risks have been extensively discussed with the patient and family and game farm helper preference was
not to pursue chronic anticoagulation.
She may have had minor traumatic injury to the right shoulder or arm.
Very low suspicion that this event represented a seizure.
Recommendations
-Check x-ray of the shoulder on the right
-Not going to recommend brain MRI as the finding of stroke would not change her management and the patient's neurologic examination does not support
-Continue her regular dosing of carbidopa/levodopa
-Minimize sedating medications and avoid antipsychotic
-Continue CHRISTIANA stockings to help minimize orthostatic hypotension
Continue to follow with neurology as outpatient
Original Note:
Documented by User: Laurita Guzmán NP 05/03/23 13:33
Today's Communication / Plan
-
.
Neuro Assessment/Plan
Assessment
This is an 87-year-old female who presented to on 05/02/23 with report of abrupt recurrence of syncope and suggested right-sided weakness in a patient with a prior longstanding history of Parkinson's.
Patient also has a longstanding history of recurrent falling and 'vasovagal syncope' suggestive of orthostatic hypotension.
-CT head 05/02/23: No acute intracranial abnormality noted. No acute intracranial hemorrhage. 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
vascular territory transcortical infarct at this time. Aspects score: 10.
I. Parkinson disease with chronic ambulatory dysfunction and orthostatic hypotension.
II. Low concern for small ischemic stroke producing transient right-sided weakness.
III. Description of event from patient's caregiver less supportive of seizure.
IV. Dementia
Plan
-Family decision that risk of frequent falls on OAC outweigh benefits of restarting Eliquis.
-Aspirin discontinued.
-R shoulder xray ordered/pending due to c/o pain.
-MRI brain will not likely change plan of care and would require several additional days of hospitalization to obtain this scan. Okay to obtain this as an outpatient.
-TTE pending.
-CHRISTIANA stockings, abdominal binder, hydration, slow position changes for orthostasis.
-Continue home Sinemet regimen, memantine, and rivastigmine.
-PT/OT/ST evaluations
-DVT prophylaxis.
-Provide caregiver with a stroke education packet.
-Follow-up with Neurology as scheduled tomorrow, or if still hospitalized, reschedule follow-up appt in 2-4 weeks with the SAP ADMINISTRATOR or Dr. Marquis.
Subjective/Objective
Subjective Data
Date of Service: May 03, 2023
No acute events overnight. Patient reports fatigue from poor sleep in addition to a mild headache, and right wrist and shoulder pain. She denies any dizziness, vision changes, speech/swallow difficulty, numbness, weakness, chest pain, palpitations,
and shortness of breath.
Objective Data
Vital Signs
Temp Pulse Resp BP Pulse Ox
98.5 F 95 16 180/100 96
05/03/23 03:10 05/03/23 06:01 05/03/23 03:10 05/03/23 07:00 05/03/23 03:10
Lab Results
05/03/23 07:21
PT 13.4 Sec (11.4-14.6) 05/02/23 14:24
INR 1.04 05/02/23 14:24
APTT Cancelled 05/02/23 16:34
Sodium 133 mmol/L (135-145) L 05/02/23 14:24
Potassium 3.9 mmol/L (3.5-5.1) 05/02/23 14:24
BUN 21 mg/dl (7-17) H 05/02/23 14:24
Glucose 88 mg/dl (70-99) 05/02/23 14:24
Calcium 8.9 mg/dl (8.4-10.2) 05/02/23 14:24
Patient Allergies
bisacodyl [From Dulcolax (bisacodyl)] Allergy (Verified 02/04/23 14:14)
Nausea
LDL Level: <70, continue statin
Review of Systems
-
History Source: Patient
Constitutional: Fatigue
EENT: Negative Blurry Vision, Decreased Vision or Swallowing Difficulty
Respiratory: Negative Cough or Trouble Breathing
Cardiac: Negative Chest Pain or Palpitations
Abdomen/GI: Constipated
Genitourinary: Incontinence
Musculoskeletal: Joint Pain (R wrist and R shoulder)
Neuro: Headache; Negative Dizzy, Weakness, Numbness, Ataxia, Tremors or Speech Problem
Physical Exam
-
General: No Apparent Distress
Eyes: No Ptosis and PERRLA
HEENT: Normocephalic and Atraumatic
Neck: Full Range of Motion
Respiratory: No Dyspnea
GI: Non-distended
Extremities: No Clubbing, No Cyanosis and No Edema
Extended Neurological Exam
Mood & Affect: Mood Unremarkable and Affect Unremarkable
Attention Span & Concentration: Awake, Alert and Interactive
Memory: Reduced (Oriented to person, place, time, not situation)
Tremor: Hand Tremor Absent and Head Tremor Absent
Involuntary Movement: None
Speech: Quality Unremarkable, Quantity Unremarkable and Rate of Production Unremarkable
Cranial Nerve II: Left Eye: Pupillary Reactivity Unremarkable, Pupillary Size Unremarkable and Visual Shell Intact
Cranial Nerve II: Right Eye: Pupillary Reactivity Unremarkable, Pupillary Size Unremarkable and Visual Shell Intact
Cranial Nerves III, IV, : Extraocular Movement: Other (slightly restricted upgaze, otherwise full in all directions)
Cranial Nerve V: Facial Sensation: Intact to Light Touch
Cranial Nerve VII: Facial Symmetry: Normal Facial Symmetry
Cranial Nerve VIII: Hearing: Unremarkable Hearing to Normal Conversational Volume
Cranial Nerves IX, X: Palate Movement: Palate Elevation Symmetric
Cranial Nerve XI: Shoulder Shrug: Unremarkable
Cranial Nerve XII: Tongue Protusion: Midline
Muscle Strength, Overall: Full Throughout
Muscle Bulk & Tone: Increased Tone (mild cogwheeling b/l upper extremities.)
Pronator Drift: No Drift in Upper Extremities and No Drift in Lower Extremities
Touch Sensation: Double Simultaneous Stimulation Unremarkable
Coordination: [id number] Testing Unremarkable
Babinski Sign: Absent Bilaterally
Gait & Station: Up from Seated Without Problem
Data Reviewed
-
CT Head: Report Reviewed and Image Reviewed
Echocardiogram: Pending
Orthostatic Testing: Report Reviewed
Labs: Report Reviewed
Lipid Profile: Report Reviewed
HgbA1C: Report Reviewed
Reviewed with: Physician and Patient
NIH Stroke Score
Subsequent NIH Scale
Date of Subsequent NIH Scale: 05/03/23
Time of Subsequent NIH Scale: 09:00
NIH Stroke Score
Level of Consciousness: 0 - Alert
LOC Questions: 0-Answers both correctly
LOC Commands: 0-Performs both correctly
Best Horizontal Gaze: 0-Normal
Visual Shell: 0=Normal, no visual loss
Facial Palsy: 0=Normal, symmetrical
Motor - Right Arm: 0=No drift 10 seconds
Motor - Left Arm: 0=No drift 10 seconds
Motor - Right Le-No drift 5 seconds
Motor - Left Le-No drift 5 seconds
Limb Ataxia: 0-Absent
Sensation: 0-Normal
Best Language: 0-No aphasia
Dysarthria: 0-Normal
Extinction and Inattention: 0-No abnormality
Total Score:: 0
Medications
-
Active Medications
Generic Name Dose Route Start Last Admin
Trade Name Freq PRN Reason Stop Dose Admin
Acetaminophen 500 mg 05/02/23 17:06
Acetaminophen 500 Mg Tablet PO 05/30/23 17:05
Q6H PRN
mild pain
Acetaminophen 650 mg 05/02/23 17:06
Acetaminophen 650 Mg Rectal Suppository RECTAL 05/30/23 17:05
Q4HPRN PRN
LEY, mild pain, or temp >100.4F
Carbidopa/Levodopa 2 tablet 05/02/23 20:00 05/02/23 20:09
Carbidopa (25 Mg)/Levodopa (100 Mg) Regular Release Tablet PO 05/30/23 19:59 2 tablet
DAILY@2000 ROSS Administration
Carbidopa/Levodopa 3 tablet 05/03/23 08:00 05/03/23 09:52
Carbidopa (25 Mg)/Levodopa (100 Mg) Regular Release Tablet PO 05/31/23 07:59 3 tablet
DAILY@0800,1200,1600 ROSS Administration
Diltiazem HCl 120 mg 05/03/23 08:00 05/03/23 06:01
Diltiazem 120 Mg Extended Release (24 H) Capsule PO 05/31/23 07:59 120 mg
DAILY ROSS Administration
Docusate Sodium 100 mg 05/02/23 20:00 05/02/23 20:09
Docusate Sodium 100 Mg Capsule PO 05/30/23 19:59 100 mg
DAILY@1999 ROSS Administration
Heparin Sodium 5,000 units 05/02/23 20:00 05/03/23 09:51
Heparin 5,000 Units/Ml 1 Ml Vial SC 05/30/23 19:59 5,000 units
Q12 ROSS Administration
Hydralazine HCl 10 mg 05/02/23 16:58 05/03/23 09:50
Hydralazine 20 Mg/Ml Vial IV 05/30/23 16:57 10 mg
Q6HPRN PRN Administration
SBP>170, DBP>100
Levothyroxine Sodium 75 mcg 05/03/23 07:00 05/03/23 05:33
Levothyroxine 75 Mcg Tablet PO 05/31/23 06:59 75 mcg
DAILY@699 ROSS Administration
Losartan Potassium 50 mg 05/02/23 20:00 05/02/23 20:09
Losartan 50 Mg Tablet PO 05/30/23 19:59 50 mg
DAILY@1999 ROSS Administration
Memantine 10 mg 05/02/23 20:00 05/03/23 09:50
Memantine 10 Mg Tablet PO 05/30/23 19:59 10 mg
BID ROSS Administration
Psyllium Hydrophilic Mucilloid 1 packet 05/03/23 08:00 05/03/23 09:52
Psyllium Packet PO 05/31/23 07:59 1 packet
DAILY ROSS Administration
Rivastigmine 13.3 mg 05/03/23 08:00 05/03/23 09:51
Rivastigmine (Exelon) 13.3 Mg Patch TRANSDERM 05/31/23 07:59 13.3 mg
DAILY ROSS Administration
Rosuvastatin Calcium 5 mg 05/02/23 20:00 05/02/23 20:09
Rosuvastatin (Crestor) 5 Mg Tablet PO 05/30/23 19:59 5 mg
DAILY@1999 ROSS Administration
Sodium Chloride 0 flush 05/02/23 18:00
Sodium Chloride 0.9% (Flush) Syringe IV 05/30/23 17:59
PER PROTOCOL ROSS
Sotalol HCl 80 mg 05/02/23 20:00 05/03/23 06:01
Sotalol 80 Mg Tablet PO 05/30/23 19:59 80 mg
BID ROSS Administration
Tolterodine Tartrate 4 mg 05/03/23 08:00 05/03/23 09:51
Tolterodine 4 Mg Extended Release Capsule PO 05/31/23 07:59 4 mg
DAILY ROSS Administration
Home Medications
Medication Instructions Recorded
rosuvastatin 5 mg tablet 5 mg PO DAILY@1999 High cholesterol 01/12/20
rivastigmine 9.5 mg/24 hour 13.3 mg transdermal DAILY 06/15/21
transdermal patch Neurological Condition
memantine 10 mg tablet 10 mg PO BID dementia 06/23/21
cholecalciferol (vitamin D3) 25 2,000 units PO DAILY Supplement 07/16/21
mcg (1,000 unit) tablet
losartan 50 mg tablet 50 mg PO DAILY@1999 Blood pressure 07/16/21
levothyroxine 75 mcg tablet 75 mcg PO DAILY@0700 Thyroid 02/11/22
(Synthroid)
carbidopa 25 mg-levodopa 100 mg 2 tab PO DAILY@1999 Neurological 05/04/22
tablet Condition
carbidopa 25 mg-levodopa 100 mg 3 tab PO DAILY@0800,1200,1600 05/04/22
tablet Neurological Condition
diltiazem HCl 120 mg 120 mg PO DAILY Blood Pressure 05/04/22
capsule,extended release 24 hr
acetaminophen 500 mg tablet 500 mg PO Q6H PRN mild pain 08/15/22
fluticasone propionate 50 1 spray intranasal PRN PRN ALLERGY 08/15/22
mcg/actuation nasal
spray,suspension
sennosides 8.6 mg tablet 8.6 mg PO DAILY PRN CONSTIPATION 08/15/22
psyllium 1 packet PO DAILY Constipation 04/11/23
Crancaps 1 cap PO DAILY Supplement 05/02/23
Thc Gummies 1 gummy PO HS PRN sleep 05/02/23
docusate sodium 100 mg capsule 100 mg PO DAILY@2000 Constipation 05/02/23
melatonin 5 mg tablet 5 - 10 mg PO HS PRN sleep 05/02/23
sotalol 80 mg tablet 80 mg PO BID Arrhythmia 05/02/23
vibegron 75 mg tablet (Gemtesa) 75 mg PO DAILY Urinary Issue 05/02/23

Documented by User: Diallo Marquis MD 05/03/23 13:52
NIH Stroke Score
NIH Stroke Score
Total Score:: 0
[2023-05-03 08:20] LABS: Blood Urea Nitrogen 18 mg/dl (7-17); Calcium 8.8 mg/dl (8.4-10.2); Carbon Dioxide 25 mmol/L (22-30); Chloride 107 mmol/L (98-107); Estimated Creatinine Clearance 62 ml/min; Glucose 86 mg/dl (70-99); HDL Cholesterol 94 mg/dl; LDL Cholesterol, Calculated 76 mg/dl; Phosphorus 3.6 mg/dl (2.5-4.5); Potassium 3.9 mmol/L (3.5-5.1); Sodium 135 mmol/L (135-145); Total Cholesterol 184 mg/dl (50-199); Triglyceride 72 mg/dl (10-149); Very Low Density Lipoprotein 14 mg/dl (0-30); eGFR > 60.00
[2023-05-03 08:59] LABS: TSH 2.07 uIU/ml (0.47-4.68)
[2023-05-03] MEDS: NAMENDA 10 MG PO ×2 (09:50→20:01)
[2023-05-03] MEDS: LOW STRENGTH ASPIRIN 81 MG PO (09:50)
[2023-05-03] MEDS: EXELON PATCH 13.3000000000000007 MG TRANSDERM (09:51)
[2023-05-03] MEDS: HEPARIN 5000 UNITS SC ×2 (09:51→20:02)
[2023-05-03] MEDS: DETROL LA 4 MG PO (09:51)
[2023-05-03] MEDS: METAMUCIL, KONSYL 1 PACKET PO (09:52)
[2023-05-03] MEDS: SINEMET 25-100 3 TABLET PO ×3 (09:52→18:27)
--- NOTE | 2023-05-03 10:01 | W.PN.CARDCBS ---
Addendum entered and electronically signed by Angelica Echols DO 05/03/23 17:19:
I saw and examined the patient.
The Hospitalist Physician's note was reviewed and I agree with the note.
Comment: Seen and examined with cardiac PA. Patient's home hospice rn present. Patient offers no new complaints except for extreme fatigue.
GEN: Elderly 87-year-old female out of bed to chair. AAOx3.
HEENT: mmm
LUNGS: Bronchovesicular breath sounds, clear
CV: Reg, S1/S2, 2/6 syst LSB
ABD: soft, BS+, NT/ND
EXT: No edema
Plan:
She presented 05/02/2023 with possible syncope versus fall. Caregiver denies that she was ever unresponsive but instead was confused and found on floor
-Stroke alert called on presentation due to right-sided weakness and dysarthria which seems to have improved.
-HCT 05/02/23 w/ no acute intracranial abnormality or intracranial hemorrhage.
-Neurology consulted
-May have been fall as she has had orthostasis in the past with prior falls and Parkinson's disease which also can be contributing to orthostasis
-Orthostatics negative, did not complete standing. Consider repeating later today
-Utilize compression stockings
-Alexsander does have paroxysmal atrial fibrillation not anticoagulated
-pacemaker interrogated 05/03/23. Device functioning appropriately. Overall Afib burden low 0.5% with 3 episodes of Afib noted 04/26/23 longest 2 hours. No arrhythmias associated with fall/syncope.
-Patient was seen by neurology and anticoagulation was recommended. However patient's outpatient research electrician Dr. Coyle had spoken to family and anticoagulation was stopped in February 2023 given very high fall risk with multiple prior falls in the
past.
-Talked w/ daughter Chela over the phone and reviewed risk vs benefit of resuming OAC. Per Chela she would prefer to avoid OAC as patient has low Afib burden on device
-Patient is on sotalol 80 mg twice daily
-Echocardiogram pending
Hypertension with elevated blood pressures this morning
-Continue current dose of losartan. Will increase diltiazem CD to 180 mg daily
-As needed hydralazine
-
Original Note:
Today's Communication / Plan
-
PPM interrogation
PT/OT assessment
T/c low dose AV rupert rubin
Impression / Plan
-
Family Physician:� Jostin De La O Jr
Crtts: González Coyle
Impression:
Presented 05/02/2023 with AMS and found on floor
Fall versus syncope
Right-sided weakness and dysarthria, improved
Parkinson's disease
Dementia
Ambulatory dysfunction
Atrial fibrillation
Previous�on anticoagulation (eliquis) but d/rich as outpt February 2023 due to concerns of recurrent falls and balance issues
Sick sinus syndrome, permanent pacemaker in place (Medtronic dual-chamber pacemaker placed July 17, 2021)
BRETT
Hypertension
Recurrent UTIs
Seizure, January 2022 in the setting of a UTI
Echo 04/02/2020: EF 63%, mild LAE. mild MR, mild-mod TR
Lexiscan ST 04/20/2018: small fixed inferior defect c/w soft tissue attenuation; no ischemia
Plan:
-She presented 05/02/2023 with possible syncope versus fall. Caregiver denies that she was ever unresponsive but instead was confused and found on floor
-Stroke alert called on presentation due to right-sided weakness and dysarthria which seems to have improved. HCT 05/02/23 w/ no acute intracranial abnormality or intracranial hemorrhage. Neurology consulted
-May have been fall as she has had orthostasis in the past with prior falls and Parkinson's disease which also can be contributing to orthostasis
-Orthostatics negative, did not complete standing. Consider repeating later today with supine, sitting and standing
-Utilize compression stockings
-Per review of tele appears A paced with intermittent V pacing. No arrhythmias noted
-Pacemaker interrogated 05/03/23. Device functioning appropriately. Overall Afib burden low 0.5% with 3 episodes of Afib noted 04/26/23 longest 2 hours. No arrhythmias associated with fall/syncope.
-T/c adding AV rupert blocking agent and/or Amiodarone to suppress arrhythmia
-Patient was seen by neurology and anticoagulation was recommended. However patient's outpatient research electrician Dr. Coyle had spoken to family and anticoagulation was stopped in February 2023 given very high fall risk with multiple prior falls in the
past.
-Talked w/ daughter Chela over the phone and reviewed risk vs benefit of resuming OAC. Per Chela she would prefer to avoid OAC as patient has low Afib burden on device
-BP high. Consider increasing Losartan or adding low dose beta-rubin
-Discussed with neurology Dr Marquis, primary caregiver and daughter Chela whom is on the phone
Progress Note - Crtts
Subjective
Date of Service: May 03, 2023
Patient seen and examined. Lying in bed. Responds appropriately to questions although poor historian. Caregiver at bedside and helps to provide history.
Objective
Labs:
05/03/23 07:21
05/03/23 07:21
Labs
Hgb 14.4 g/dL (12.0-16.0) 05/03/23 07:21
Hct 42.3 % (37.0-47.0) 05/03/23 07:21
Plt Count 135 10^3/uL (130-400) 05/03/23 07:21
PT 13.4 Sec (11.4-14.6) 05/02/23 14:24
INR 1.04 05/02/23 14:24
APTT Cancelled 05/02/23 16:34
Sodium 135 mmol/L (135-145) 05/03/23 07:21
Potassium 3.9 mmol/L (3.5-5.1) 05/03/23 07:21
BUN 18 mg/dl (7-17) H 05/03/23 07:21
Creatinine 0.6 mg/dL (0.6-1.0) 05/03/23 07:21
Glucose 86 mg/dl (70-99) 05/03/23 07:21
Troponins
05/02/23
20:12
Troponin I < 0.012
Vital Signs and I&O:
Vital Signs
Temp Pulse Resp BP Pulse Ox
97.9 F 77 18 178/109 96
05/03/23 07:25 05/03/23 07:25 05/03/23 07:25 05/03/23 09:50 05/03/23 03:10
Vital Signs
Temp Pulse Resp BP Pulse Ox
97.9 F 77 18 178/109 96
05/03/23 07:25 05/03/23 07:25 05/03/23 07:25 05/03/23 09:50 05/03/23 03:10
Intake & Output
05/01/23 05/02/23 05/03/23 05/04/23
05:59 06:59 06:59 06:59
Output Total 480 / 480
Balance -480 / -480
Physical Exam
Physical Exam
GEN: No distress, awake, Ox3
HEENT: supple, anicteric, mmm
LUNGS: CTA, no wheezes/rales
CV: Reg, S1/S2, 1/6 syst LSB, no murmur
ABD: soft, BS+, NT/ND
EXT: No edema, clubbing, cyanosis
NEURO: poor historian, demented
SKIN: No rash, warm dry
[2023-05-03 12:54] LABS: Glucose - Point of Care 84 mg/dl (70-99)
--- NOTE | 2023-05-03 13:14 | W.CARD.DEVCH ---
Cardiac Device Check
-
Device: Pacemaker
Java Programmer: Medtronic
The patient's device was interrogated with assistance of the device sales representative adding machines followed by a complete physician review. The device had normal function. No abnormalities seen. No arrhythmias noted at time of fall/near syncope. Afib burden 0.5%
since last interrogation with longest episode ~2 hours 04/26/2023.
--- NOTE | 2023-05-03 13:22 | PTCARENOTE ---
patient sitting on BSC, home health care physician at bedside, Dr Long and 2 residents at bedside talking with patient, aide and daughter on phone. Noted patient to slump to left side while on bedside commode, not responding. patient put back in bed, monitor
showing A paced 80-90's, within 15 seconds patient starting to respond, BP 108/78, strong and equal hand grasps on command. able to speak her name. Accucheck 84. ate breakfast, but not lunch yet. apple juice given. instructed aide to order lunch.
patients own thigh high aniket stockings placed on patient. BP rechecked after 30 minutes 108/78. plan of care on going.
--- NOTE | 2023-05-03 15:59 | CM ---
CM met with pt and caregver bedside
Dtr on speaker phone
Pt resides alone with a / paid caregiver in 2SH with 1STE
Pt has stair glide to 2nd floor
Pt ambulates independently with a rollator
Caregiver provides all personal assistance and home maintenance
Pt is current with [facility] for PT/OT/SP
VN recommended, dtr requesting [facility] with [facility] on dc
Pt is OBS- GEE verbally reviewed
Copy emailed to dtr at [email or web address]
PCP- Jostin De La O
Rx- [facility]
Discharge Disposition- home with [facility] and 14/09 caregivers
--- NOTE | 2023-05-03 16:11 | W.PN.HOSP.TC ---
Documented by User: Nkechi Blake MD, Resident 05/03/23 17:13
Today's Communication/Plan
-
keeping patient overnight for observation
orthostatic checks
Assessment / Plan
Assessment / Plan
IMPRESSION:
86-year-old female with history of Parkinson disease, brought to the hospital after a syncopal episode. Today at bedside examination patient had some jitterness, unresoponsive for 5 seconds, was reponsive as she was put in bed from the toilet seat.
Pupils were reactive, BP dropped to 108/70 from the 150s systolic.
Orthostatic hypotension, cardiac arrhythmia need to be considered, while stroke or TIA could be a possibility.
Syncope, stroke or TIA be a possibility
Cardiac arrhythmia need to be considered
Hypertensive urgency
Orthostatic hypotension.
She should be a possibility but unlikely.
History of A-fib off anticoagulation status post pacemaker
Chronic kidney disease
Dehydration
History of Parkinson disease
Ambulatory dysfunction
Potential hypothyroidism
Urine incontinence
PLAN:
Today at bedside examination patient had some jitterness, unresoponsive for 5 seconds, was responsive as she was put in bed from the toilet seat. Pupils were reactive, BP dropped to 108/70 from the 150s systolic. Significant drop in BP. TT
Nuerology, advised to encourage more fluids
Cardiac monitoring continue
Give a dose of hydralazine to bring her blood pressure down and then as needed for systolic more than 170
Follow cardiac enzymes
PT OT
Neurology input appreciated and will hold off further imaging as may not change the planning per neurology.
Restart anticoagulation per neurology recommendation,� will start heparin drip to assess her functional status and risk for the following before considering put her back on Eliquis.
Discussed with cardiology
IV fluid
I will get a UA and culture if indicated
keep the patient overnight
CT scan was done in ED.
BP control
Orthostatic checks
Statin
Started on heparin drip will hold off aspirin
Defer further workup and recommendation to neurology and cardiology
All discussed with the patient and caregiver and the daughter over the phone
CODE STATUS discussed with the daughter will be a full code for now
DVT prophylaxis is heparin drip
Anticipated Discharge: Within 24 hours
Subjective/Interval History
-
Date of Service: May 03, 2023
Objective Data
-
Labs:
Laboratory Results
05/03/23
07:21
WBC 6.4
Hgb 14.4
Hct 42.3
Plt Count 135
Sodium 135
Potassium 3.9
Chloride 107
Carbon Dioxide 25
BUN 18 H
Creatinine 0.6
Glucose 86
Calcium 8.8
Vital Signs:
Vital Signs
Temp Pulse Resp BP Pulse Ox
97.6 F 77 18 127/75 98
05/03/23 15:10 05/03/23 15:10 05/03/23 15:10 05/03/23 15:10 05/03/23 15:10
I&O
05/02/23 05/03/23 05/04/23
06:59 06:59 06:59
Output Total 480 / 480
Balance -480 / -480
Physical Exam
-
Respiratory: Clear to Auscultation
Cardiac: Regular Rhythm

Documented by User: Shine Long MD 05/03/23 21:31
Review of Systems
-
Unable to obtain full review of systems at this time due to: Dementia
History Source: Family and Other (child care centre director)
All other systems: Reviewed and negative
Constitutional: Reports No Symptoms
Respiratory: Reports No Symptoms
Cardiac: Reports No Symptoms
Abdomen/GI: Reports No Symptoms
Genitourinary: Reports No Symptoms
Psych: Reports Depressed
Physical Exam
-
General: No Apparent Distress and Conversant
HEENT: Normocephalic and Atraumatic
GI: Soft, Nontender, Nondistended and Normal Bowel Sounds
Genito-urinary: No Costovertebral Tender
Musculoskeletal: No Edema
Neuro: Awake, Alert and Oriented (x 1)
Psych: Calm
Data Reviewed
-
Diagnostic Radiology: Report Reviewed by me
CT Scan: Report Reviewed by me
Medical Tests (Nuc Med, Echo etc): Report Reviewed by me
Labs: Labs Reviewed by me and Discussed with Physician
[2023-05-03] MEDS: COLACE 100 MG PO (20:00)
[2023-05-03] MEDS: SINEMET 25-100 2 TABLET PO (20:00)
[2023-05-03] MEDS: CRESTOR 5 MG PO (20:01)
[2023-05-03] MEDS: COZAAR 50 MG PO (20:07)
[2023-05-04] VITALS (9 sets, daily range): BP systolic 102–198; BP diastolic 70–111; PULSE 75–90
[2023-05-04] MEDS: APRESOLINE 10 MG IV (03:25)
[2023-05-04] MEDS: SYNTHROID 75 MCG PO (05:40)
[2023-05-04] MEDS: MIRALAX 17 GRAMS PO (08:30)
[2023-05-04] MEDS: DETROL LA 4 MG PO (08:57)
[2023-05-04] MEDS: CARDIZEM CD 180 MG PO (08:57)
[2023-05-04] MEDS: SINEMET 25-100 3 TABLET PO ×3 (08:58→17:10)
[2023-05-04] MEDS: HEPARIN 5000 UNITS SC (08:58)
[2023-05-04] MEDS: EXELON PATCH 13.3000000000000007 MG TRANSDERM (08:59)
[2023-05-04] MEDS: BETAPACE 80 MG PO ×2 (08:59→21:16)
[2023-05-04] MEDS: METAMUCIL, KONSYL 1 PACKET PO (08:59)
[2023-05-04] MEDS: NAMENDA 10 MG PO ×2 (08:59→21:17)
[2023-05-04 09:19] LABS: Blood Urea Nitrogen 20 mg/dl (7-17); Carbon Dioxide 22 mmol/L (22-30); Chloride 105 mmol/L (98-107); Creatine Phosphokinase 30 U/L (30-135); Estimated Creatinine Clearance 53 ml/min; Glucose 94 mg/dl (70-99); Potassium 3.7 mmol/L (3.5-5.1); Sodium 132 mmol/L (135-145); eGFR > 60.00
--- NOTE | 2023-05-04 14:18 | W.PN.HOSP.TC ---
Addendum entered and electronically signed by Ayush Long MD 05/04/23 21:59:
Attending Addendum-
I saw and evaluated the patient. I reviewed the resident�s note and agree with findings and plan as documented in the resident�s note. patient not acting herself per burn table operator, daughter on facetime during interview exam: gen fatigued heart RRR lungs
clear abd soft LE no edema skin dry Plan: Dehydration start IVF, right shoulder pain- reviewed x ray no fx, VV syncope/Orthostatic syncope hydrate cont to monitor on tele labs reviewed Hyponatremia-repeat labs in am likely hypovelomic start IVF
HTN- uncontrolled increase dilt Dispo DC home in 1-2 days
Time spent coordinating care, review of plan of care with resident, review of records, med rec, consults, notes, labs, rads, d/w nursing client care representative and POA - 50 mins
Original Note:
Documented by User: Nkechi Blake MD, Resident 05/04/23 15:02
Today's Communication/Plan
-
IV fluids for dehydration
change in mental status- more fatigue, less responsive
checking UA
Keeping patient overnight to see how she progress.
Talked to patient's daughter on video call and Dominique (caregiver) who was present in the room
Assessment / Plan
Assessment / Plan
IMPRESSION:
86-year-old female with history of Parkinson disease, brought to the hospital after a syncopal episode. Today at bedside examination patient had some jitterness, unresoponsive for 5 seconds, was reponsive as she was put in bed from the toilet seat.
Pupils were reactive, BP dropped to 108/70 from the 150s systolic.
Orthostatic hypotension, cardiac arrhythmia need to be considered, while stroke or TIA could be a possibility.
Syncope, stroke or TIA be a possibility
Cardiac arrhythmia need to be considered
Hypertensive urgency
Orthostatic hypotension.
She should be a possibility but unlikely.
History of A-fib off anticoagulation status post pacemaker
Chronic kidney disease
Dehydration
History of Parkinson disease
Ambulatory dysfunction
Potential hypothyroidism
Urine incontinence
Constipation
PLAN:
Today at bedside examination patient had some jitterness, unresoponsive for 5 seconds, was responsive as she was put in bed from the toilet seat. Pupils were reactive, BP dropped to 108/70 from the 150s systolic. Significant drop in BP. TT
Nuerology, advised to encourage more fluids
Cardiac monitoring continue
Give a dose of hydralazine to bring her blood pressure down and then as needed for systolic more than 170
Follow cardiac enzymes
PT OT
Neurology input appreciated and will hold off further imaging as may not change the planning per neurology.
Restart anticoagulation per neurology recommendation,� will start heparin drip to assess her functional status and risk for the following before considering put her back on Eliquis.
Discussed with cardiology
keep the patient overnight
CT scan was done in ED.
BP control
Orthostatic checks
IV fluids for dehydration
Miralax for constipation
checking UA
Statin
Started on heparin drip will hold off aspirin
Defer further workup and recommendation to neurology and cardiology
All discussed with the patient and caregiver and the daughter over the phone
CODE STATUS discussed with the daughter will be a full code for now
DVT prophylaxis is heparin drip
Anticipated Discharge: 24 - 48 hours
Subjective/Interval History
-
Date of Service: May 04, 2023
Patient is more fatigue ad confused than yesterday. She looks dehydrated. Somewhat responsive
Objective Data
-
Labs:
Laboratory Results
05/04/23
07:40
Sodium 132 L
Potassium 3.7
Chloride 105
Carbon Dioxide 22
BUN 20 H
Creatinine 0.7
Glucose 94
Calcium 9.0
Vital Signs:
Vital Signs
Temp Pulse Resp BP Pulse Ox
98.4 F 75 20 121/70 95
05/04/23 11:55 05/04/23 11:55 05/04/23 11:55 05/04/23 11:55 05/04/23 11:55
I&O
05/03/23 05/04/23 05/05/23
06:59 06:59 06:59
Intake Total
Output Total 480 / 480 300 / 300
Balance -480 / -480 -297 / -297
Review of Systems
-
Constitutional: Reports Fatigue
Physical Exam
-
General: Other (somnolent, fragile )
HEENT: Normocephalic and Atraumatic
Respiratory: Clear to Auscultation
Cardiac: Regular Rhythm
Breast: Deferred by me
GI: Soft and Nondistended
Rectal: Deferred by Provider
Genito-urinary: Deferred by me
Musculoskeletal: No Edema
Skin: Warm
Neuro: Awake (somnolent ), Oriented (not oriented to time, oriented to location/place ) and No Motor Deficits (squeezed fingers with good strength )
Psych: Confused

Documented by User: Ayush Long MD 05/04/23 21:53
Review of Systems
-
Unable to obtain full review of systems at this time due to: Dementia
History Source: Family (daughter on phone and burn table operator-present)
All other systems: Reviewed and negative
[2023-05-04] MEDS: NSS 1000 IV (14:31)
--- NOTE | 2023-05-04 15:04 | OID.PS.NOTER ---
[facility] Social Work Note
- -
[facility] received referral from Dr. Nkechi Blake. PRO confirmed with Dr. Blake that the referral was sent to the wrong place and is currently being addressed by the inpatient case management team.
[2023-05-04] MEDS: MYCOSTATIN ORAL SUSPENSION 5 ML PO ×2 (15:30→21:18)
--- NOTE | 2023-05-04 16:05 | W.PN.CARDCBS ---
Today's Communication / Plan
-
stable cardiology status
sign off
Impression / Plan
-
Family Physician:� Jostin De La O Jr
Degreasing Solution Reclaimer: González Coyle
Impression:
Presented 05/02/2023 with AMS and found on floor
Fall versus syncope
Right-sided weakness and dysarthria, improved
Parkinson's disease
Dementia
Ambulatory dysfunction
Atrial fibrillation
Previous�on anticoagulation (eliquis) but d/rich as outpt February 2023 due to concerns of recurrent falls and balance issues
Sick sinus syndrome, permanent pacemaker in place (Medtronic dual-chamber pacemaker placed July 17, 2021)
BRETT
Hypertension
Recurrent UTIs
Seizure, January 2022 in the setting of a UTI
Echo 04/02/2020: EF 63%, mild LAE. mild MR, mild-mod TR
Lexiscan ST 04/20/2018: small fixed inferior defect c/w soft tissue attenuation; no ischemia
Plan:
Unclear if patient had fall versus orthostasis
Echocardiogram and device check are okay
Brief episodes of atrial fibrillation but mostly in sinus rhythm per device check
Qt interval ok on sotalol
No anticoagulation given from prior falls
Unable to do orthostatics but if was orthostatic could consider midodrine
Reviewed with nick setter as well as daughter by FaceTime
Pacemaker interrogated 05/03/23. Device functioning appropriately. Overall Afib burden low 0.5% with 3 episodes of Afib noted 04/26/23 longest 2 hours. No arrhythmias associated with fall/syncope.
Patient might have decrease in mental status which is being evaluated by primary service and neurology
will sign off, call with questions
PREADMIT DATA
-She presented 05/02/2023 with possible syncope versus fall. Caregiver denies that she was ever unresponsive but instead was confused and found on floor
-Stroke alert called on presentation due to right-sided weakness and dysarthria which seems to have improved. HCT 05/02/23 w/ no acute intracranial abnormality or intracranial hemorrhage. Neurology consulted
Progress Note - Degreasing Solution Reclaimer
Subjective
Date of Service: May 04, 2023
Appears confused but comfortable. No complaints per nick setter
Objective
Labs:
05/03/23 07:21
05/04/23 07:40
Labs
Hgb 14.4 g/dL (12.0-16.0) 05/03/23 07:21
Hct 42.3 % (37.0-47.0) 05/03/23 07:21
Plt Count 135 10^3/uL (130-400) 05/03/23 07:21
PT 13.4 Sec (11.4-14.6) 05/02/23 14:24
INR 1.04 05/02/23 14:24
APTT Cancelled 05/02/23 16:34
Sodium 132 mmol/L (135-145) L 05/04/23 07:40
Potassium 3.7 mmol/L (3.5-5.1) 05/04/23 07:40
BUN 20 mg/dl (7-17) H 05/04/23 07:40
Creatinine 0.7 mg/dL (0.6-1.0) 05/04/23 07:40
Glucose 94 mg/dl (70-99) 05/04/23 07:40
Troponins
05/02/23
20:12
Troponin I < 0.012
Vital Signs and I&O:
Vital Signs
Temp Pulse Resp BP Pulse Ox
98.4 F 75 20 121/70 95
05/04/23 11:55 05/04/23 11:55 05/04/23 11:55 05/04/23 11:55 05/04/23 11:55
Vital Signs
Temp Pulse Resp BP Pulse Ox
98.4 F 75 20 121/70 95
05/04/23 11:55 05/04/23 11:55 05/04/23 11:55 05/04/23 11:55 05/04/23 11:55
Intake & Output
05/02/23 05/03/23 05/04/23 05/05/23
06:59 06:59 06:59 06:59
Intake Total 3 / 3
Output Total 480 / 480 300 / 300
Balance -480 / -480 -297 / -297
Physical Exam
Physical Exam
General: Awake but confused
Neck: Supple, no JVD, HJR, carotids +2 B/L, no bruits bilaterally.
Heart: Non displaced PMI, RRR, no murmurs, No S3, S4, no rubs.
Lungs: Scattered rhonchi
Extremities: No clubbing, cyanosis or edema bilaterally.
Neuro: Awake but confused
[2023-05-04] MEDS: SINEMET 25-100 2 TABLET PO (17:09)
[2023-05-04 17:20] LABS: Urine Albumin Negative (Neg - Trace); Urine Bilirubin Negative (Negative); Urine Character Very Cloudy (Clear); Urine Color Yellow; Urine Glucose Negative (Negative); Urine Ketone 1+ (Negative); Urine Leukocyte Negative (Negative); Urine Nitrite Negative (Negative); Urine Occult Blood Negative (Negative); Urine Urobilinogen Negative (Neg - 1+)
--- NOTE | 2023-05-04 17:26 | PTOTSP ---
Dysphagia Evaluation
Patient presents with signs concerning for at least mild oral/pharyngeal dysphagia suspected to be exacerbated by acute AMS. She is at chronic risk for dysphagia given her Parkinson's disease and dementia but per caregiver, has never had prior
signs of difficulty swallowing.
Recommend:
1. Regular, thin liquids
2. Medications as best tolerated
3. Full supervision and assistance
4. Strategies: PO only when awake/alert, small sips/bites, slow rate, strain solids from liquids with soups/fruit cup/cereal
5. If signs of aspiration noted - hold PO until re-evaluation
6. Dysphagia tx at the acute care level to determine if further diet modifications, compensations, or objective swallowing assessment warranted.
--- NOTE | 2023-05-04 17:30 | PTCARENOTE ---
Patient straight cathed for urine culture and UA. 250 mls drained - clear skull valley slightly foul smelling.
--- NOTE | 2023-05-04 20:10 | PTCARENOTE ---
Patient with increased lethargy today. [facility] this morning 4 - last evening was a 2. Urine culture and UA sent after straight cath patient. MD aware. Patient with BP low upon standing for Physical therapy Abdominal binder maintained.
--- NOTE | 2023-05-04 20:14 | PTCARENOTE ---
Patient with thrush on tongue. MD notified. Patient ordered Nystatin.
[2023-05-04] MEDS: CRESTOR 5 MG PO (21:17)
[2023-05-04] MEDS: COLACE 100 MG PO (21:17)
[2023-05-04] MEDS: COZAAR 50 MG PO (21:17)
[2023-05-04] MEDS: HEPARIN SC ×2 (21:18→21:33)
[2023-05-05 03:05] VITALS: BP 154/88
[2023-05-05] MEDS: NSS 1000 IV (03:23)
[2023-05-05] MEDS: NSS IV (03:23)
[2023-05-05] MEDS: SYNTHROID 75 MCG PO (05:27)
[2023-05-05 07:25] VITALS: BP 131/75
[2023-05-05 07:35] LABS: % Basophils 0.6 % (0-2); % Eosinophils 3.1 % (0-6); % Immature Granulocytes 0.7 % (0-0.5); % Lymphocytes 15.8 % (20.5-51.1); % Monocytes 12.5 % (1.7-9.3); % Neutrophils 67.3 % (42.2-75.2); Absolute Eosinophils 0.2 10^3/uL (0-0.7); Absolute Lymphocytes 0.9 10^3/uL (1.2-3.4); Absolute Monocytes 0.7 10^3/uL (0.1-0.6); Absolute Neutrophils 3.7 10^3/uL (1.4-6.5); Hematocrit 36.8 % (37.0-47.0); Hemoglobin 12.5 g/dL (12.0-16.0); Mean Corpuscular Hgb 30.9 pg (27.0-31.0); Mean Corpuscular Volume 90.9 fL (81.0-99.0); Mean Platelet Volume 10.2 fL (7.4-10.4); Nucleated Red Blood Cells % 0 %; Platelet Count 133 10^3/uL (130-400); Red Blood Cell Count 4.05 10^6/uL (4.20-5.40); Red Cell Dist. Width 12.6 % (11.5-14.5); White Blood Cell Count 5.4 10^3/uL (4.8-10.8)
[2023-05-05 07:37] LABS: Blood Urea Nitrogen 15 mg/dl (7-17); Calcium 8.3 mg/dl (8.4-10.2); Carbon Dioxide 23 mmol/L (22-30); Chloride 111 mmol/L (98-107); Estimated Creatinine Clearance 53 ml/min; Glucose 84 mg/dl (70-99); Potassium 3.9 mmol/L (3.5-5.1); Sodium 136 mmol/L (135-145); eGFR > 60.00
[2023-05-05] MEDS: APRESOLINE 10 MG IV (08:04)
[2023-05-05] MEDS: SINEMET 25-100 3 TABLET PO ×2 (09:55→13:03)
[2023-05-05] MEDS: EXELON PATCH 13.3000000000000007 MG TRANSDERM (09:56)
[2023-05-05] MEDS: BETAPACE 80 MG PO (09:57)
[2023-05-05] MEDS: CARDIZEM CD 180 MG PO (09:57)
[2023-05-05] MEDS: DETROL LA 4 MG PO (09:58)
[2023-05-05] MEDS: NAMENDA 10 MG PO (09:58)
[2023-05-05] MEDS: MYCOSTATIN ORAL SUSPENSION 5 ML PO ×2 (09:59→13:03)
[2023-05-05] MEDS: MIRALAX 17 GRAMS PO (09:59)
[2023-05-05] MEDS: METAMUCIL, KONSYL 1 PACKET PO (09:59)
[2023-05-05] MEDS: HEPARIN SC (10:10)
[2023-05-05 11:47] VITALS: BP 94/51
[2023-05-05 15:32] VITALS: BP 93/60
--- NOTE | 2023-05-05 15:36 | PTCARENOTE ---
Reviewed discharge instructions with patient and caregiver. Verbalize understanding and deny questions. IV removed and tele removed. Left unit with staff escort and caregiver via wheelchair.
--- NOTE | 2023-05-05 16:34 | CM ---
CM following re: d/c planning
Chart reviewed
Pt is medically stable for d/c
CM spoke with caregiver who was assisting the patient to get dressed
Pt caregiver is a live-in and the pateint also receives [facility] for [facility]/PT/OT
Pt remains in observation status and GEE letter previously provided
Pt caregiver to transport patient home at time of d/c
No additional d/c needs to note
PLAN; d/c home with 14/09 caregiver and MARJORIE provided by at home re[facility]
--- NOTE | 2023-05-05 20:33 | W.DCSUMMARY ---
Addendum entered and electronically signed by Ayush Long MD 05/05/23 22:10:
Patient seen and examined on day of dc. Much improved well hydrated back to baseline mentation. no changes to meds, plan- DC home d/w son re coordination of care DC planning med rec time spent 35 minutes
Original Note:
Documented by User: Nkechi Blake MD, Resident 05/05/23 21:01
Discharge Summary
Discharge Data
Date of Admission: 05/02/23
Date of Discharge: 05/05/23
-
Pending Results: No
Hospital Course
Discharge Diagnosis
Syncope, stroke or TIA be a possibility
Hypertensive urgency
Orthostatic hypotension.
History of A-fib off anticoagulation status post pacemaker
Dehydration
History of Parkinson disease
Ambulatory dysfunction
Potential hypothyroidism
Urine incontinence
Hospital course :
87-year-old female with history of A-fib status post pacemaker on anticoagulation from March 19, 2023 because of the fall risk, Parkinson disease, hypertension, brought to the hospital after being found unresponsive at home. She was accompanied by
a caregiver who lives with her 24-hour daily and she found the patient lying next to her bed, coonfused. The caregiver called 911 and the patient was somewhat responsive by telling her date, also noticed right side weakness while trying to get
her up. A the patient reached ED, her symptoms resolved to baseline, she was pleasant however mildly confused. In the ED she was hypertensive. Stroke alert and nuerology was consulted immediately. CT scan was negative for hemorrhagic stroke. She
was given hydralazine to lower BP. She was restarted on Eliquis with history of Afib. Eliquis was stopped outpatient due to fall risk. During the hospital stay, patient had an episode of vasovagal syncope while she was on toilet seat starting which
caused some jitterness and she was immediately put in bed, yawned and was soon responsive in 5 seconds. She became more lethargic likely due to dehydration, IV fluid was started. Patient's BP continues to fluctuate. She was on losartan, hydralazine
and cardizem. Orthostatic checks. Patient's symptoms improved and she was awake , alert on the day of discharge. On the discharge dy she was advised PT/OT, no change in BP medication made as it was fluctuating and dropped to 93/60. She will
continue to f/u with neurology , continue home medications.
Hypertensive urgency
continue losartan, diltiazem.
Orthostatic hypotension.
PT/OT. hydration encouraged
History of A-fib off anticoagulation status post pacemaker
F/U with cardiology
Dehydration
resolved, hydration encouraged
History of Parkinson disease
f/u with neurology, continue home medication
Ambulatory dysfunction
PT/OT
Potential hypothyroidism
continue levothyroxine
Vitals on discharge: BP 93/60, HR 83 RR 18 Temp 98.5 spO2 95
SHe is alert, awake, oriented to name, place and time. Her head is atraumatic, normocephalic. Neck is supple. Chest is clear to auscultation. Heart is regular late without gallops or murmurs. Abdomen is soft, nondistended, non tender. Extremities
show no peripheral edema
Discharge Plan
-
Patient Disposition: Home (Routine Discharge)
Discharge Diagnosis/Procedures: syncope
Condition: Good
Diet: Regular
Activity: With Walker
Driving Restrictions: No driving
Bathing Restrictions: None
Other Services: PT and OT
Referrals:
Jostin De La O Jr., DO [Family Provider] -
Prescriptions:
Continued
rosuvastatin 5 MG tablet
5 mg PO DAILY@1999
rivastigmine 1 EACH patch 24 hour
13.3 mg transdermal DAILY
Patient Comments:
05/04/22 patient has patch on right back shoulder
memantine 10 MG tablet
10 mg PO BID
losartan 50 MG tablet
50 mg PO DAILY@1999
cholecalciferol (vitamin D3) 1,000 UNITS tablet
2,000 units PO DAILY
levothyroxine [Synthroid] 75 mcg Tablet
75 mcg PO DAILY@0700
diltiazem HCl 120 MG capsule,extended release 24hr
120 mg PO DAILY
carbidopa-levodopa 25-100 mg tablet
2 tab PO DAILY@1999
carbidopa-levodopa 25-100 mg tablet
3 tab PO DAILY@0800,1200,1600
sennosides 8.6 mg Tablet
8.6 mg PO DAILY PRN (Reason: CONSTIPATION)
acetaminophen 500 mg Tablet
500 mg PO Q6H PRN (Reason: mild pain)
fluticasone propionate 50 mcg/actuation [place],Suspension
1 spray INTRANASAL PRN PRN (Reason: ALLERGY)
psyllium Packet
1 packet PO DAILY
docusate sodium 100 mg Capsule
100 mg PO DAILY@1999
melatonin 5 mg Tablet
5 - 10 mg PO HS PRN (Reason: sleep)
Gemtesa 75 mg tablet
75 mg PO DAILY
Crancaps
1 cap PO DAILY
Thc Gummies
1 gummy PO HS PRN (Reason: sleep)
sotalol 80 MG tablet
80 mg PO BID
Discharge Orders:
Discharge Patient (As Directed); Ordered 05/05/23
Ordered By: Nkechi Blake
Discharge Date and Time
Discharge Date/Time: 05/05/23 15:50

Documented by User: Ayush Long MD 05/05/23 22:06
Discharge Summary
Discharge Data
Date of Admission: 05/02/23
Date of Discharge: 05/05/23
Hospital Course
Discharge Diagnosis
Syncope, stroke or TIA be a possibility
Hypertensive urgency
Orthostatic hypotension.
History of A-fib off anticoagulation status post pacemaker
Dehydration
History of Parkinson disease
Ambulatory dysfunction
Potential hypothyroidism
Urine incontinence
Hospital course :
87-year-old female with history of A-fib status post pacemaker on anticoagulation from March 19, 2023 because of the fall risk, Parkinson disease, hypertension, brought to the hospital after being found unresponsive at home. She was accompanied by
a caregiver who lives with her 24-hour daily and she found the patient lying next to her bed, coonfused. The caregiver called 911 and the patient was somewhat responsive by telling her date, also noticed right side weakness while trying to get
her up. A the patient reached ED, her symptoms resolved to baseline, she was pleasant however mildly confused. In the ED she was hypertensive. Stroke alert and nuerology was consulted immediately. CT scan was negative for hemorrhagic stroke. She
was given hydralazine to lower BP. She was restarted on Eliquis with history of Afib. Eliquis was stopped outpatient due to fall risk. During the hospital stay, patient had an episode of vasovagal syncope while she was on toilet seat starting which
caused some jitterness and she was immediately put in bed, yawned and was soon responsive in 5 seconds. She became more lethargic likely due to dehydration, IV fluid was started. Patient's BP continues to fluctuate. She was on losartan, hydralazine
and cardizem. Orthostatic checks. Patient's symptoms improved and she was awake , alert on the day of discharge. On the discharge dy she was advised PT/OT, no change in BP medication made as it was fluctuating and dropped to 93/60. She will
continue to f/u with neurology , continue home medications.
Hypertensive urgency
continue losartan, diltiazem.
Orthostatic hypotension.
PT/OT. hydration encouraged
History of A-fib off anticoagulation status post pacemaker
F/U with cardiology
Dehydration
resolved, hydration encouraged
History of Parkinson disease
f/u with neurology, continue home medication
Ambulatory dysfunction
PT/OT
Potential hypothyroidism
continue levothyroxine
Vitals on discharge: BP 93/60, HR 83 RR 18 Temp 98.5 spO2 95
SHe is alert, awake, oriented to name, place and time. Her head is atraumatic, normocephalic. Neck is supple. Chest is clear to auscultation. Heart is regular late without gallops or murmurs. Abdomen is soft, nondistended, non tender. Extremities
show no peripheral edema
Attending Addendum-
Read reviewed and agree
Shine Long MD
Discharge Plan
-
Patient Disposition: Home (Routine Discharge)
Discharge Diagnosis/Procedures: syncope
Condition: Good
Diet: Regular
Activity: With Walker
Driving Restrictions: No driving
Bathing Restrictions: None
Other Services: PT and OT
Referrals:
Jostin De La O Jr., DO [Family Provider] -
Prescriptions:
Continued
rosuvastatin 5 MG tablet
5 mg PO DAILY@1999
rivastigmine 1 EACH patch 24 hour
13.3 mg transdermal DAILY
Patient Comments:
05/04/22 patient has patch on right back shoulder
memantine 10 MG tablet
10 mg PO BID
losartan 50 MG tablet
50 mg PO DAILY@1999
cholecalciferol (vitamin D3) 1,000 UNITS tablet
2,000 units PO DAILY
levothyroxine [Synthroid] 75 mcg Tablet
75 mcg PO DAILY@0700
diltiazem HCl 120 MG capsule,extended release 24hr
120 mg PO DAILY
carbidopa-levodopa 25-100 mg tablet
2 tab PO DAILY@1999
carbidopa-levodopa 25-100 mg tablet
3 tab PO DAILY@0800,1200,1600
sennosides 8.6 mg Tablet
8.6 mg PO DAILY PRN (Reason: CONSTIPATION)
acetaminophen 500 mg Tablet
500 mg PO Q6H PRN (Reason: mild pain)
fluticasone propionate 50 mcg/actuation [place],Suspension
1 spray INTRANASAL PRN PRN (Reason: ALLERGY)
psyllium Packet
1 packet PO DAILY
docusate sodium 100 mg Capsule
100 mg PO DAILY@1999
melatonin 5 mg Tablet
5 - 10 mg PO HS PRN (Reason: sleep)
Gemtesa 75 mg tablet
75 mg PO DAILY
Crancaps
1 cap PO DAILY
Thc Gummies
1 gummy PO HS PRN (Reason: sleep)
sotalol 80 MG tablet
80 mg PO BID
Discharge Orders:
Discharge Patient (As Directed); Ordered 05/05/23
Ordered By: Nkechi Blake
Discharge Date and Time
Discharge Date/Time: 05/05/23 15:50
== END 2023-05-05 15:50 | disposition home health service (06) ==
LOC: 4 EAST ACU 16:48
PROVIDERS: ADMITTING PHYSICIAN Internal Medicine; ATTENDING PHYSICIAN Family Medicine; CONSULT PHYSICIAN Internal Medicine Cardiovascular Disease; CONSULT PHYSICIAN Psychiatry & Neurology Neurology; EMERGENCY PHYSICIAN Student in an Organized Health Care Education/Training Program; FAMILY PHYSICIAN Family Medicine
DX: I95.1 Orthostatic hypotension (principal); R47.81 Slurred speech; R53.1 Weakness; E86.0 Dehydration; R53.83 Other fatigue; I16.0 Hypertensive urgency; E03.9 Hypothyroidism, unspecified; K59.00 Constipation, unspecified; F02.80 Dementia in other diseases classified elsewhere, unspecified severity, without behavioral disturbance, psychotic disturbance, mood disturbance, and anxiety; I48.0 Paroxysmal atrial fibrillation; G20.A1 Parkinson's disease without dyskinesia, without mention of fluctuations; R32 Unspecified urinary incontinence; I67.82 Cerebral ischemia; G47.00 Insomnia, unspecified; G47.33 Obstructive sleep apnea (adult) (pediatric); R47.1 Dysarthria and anarthria; R29.6 Repeated falls; I10 Essential (primary) hypertension; Z91.81 History of falling; Z79.01 Long term (current) use of anticoagulants; Z95.0 Presence of cardiac pacemaker; Z88.8 Allergy status to other drugs, medicaments and biological substances; Z80.1 Family history of malignant neoplasm of trachea, bronchus and lung; Z82.0 Family history of epilepsy and other diseases of the nervous system; Z87.440 Personal history of urinary (tract) infections
CPT/HCPCS: 93288; 70450; 73030; 80048; 80053; 80061; 81003; 82550; 82962; 83735; 84100; 84443; 84484; 85025; 85027; 85610; 92610; 93005; 93306; 97162; 97166; 97530; 99285; G0378

== ENCOUNTER → 2023-05-17 12:33 | Outpatient (REF) | payer MEDICARE, BC, SELFPAY | LOC: HWRAD 12:33 | PROVIDERS: ATTENDING PHYSICIAN Family Medicine | DX: M85.89 Other specified disorders of bone density and structure, multiple sites (principal); Z13.820 Encounter for screening for osteoporosis | CPT/HCPCS: 77080 ==

== ENCOUNTER → 2023-05-21 11:23 | Outpatient (REF) | payer MEDICARE, BC, SELFPAY ==
[2023-05-21 12:15] LABS: % Eosinophils 4.1 % (0-6); % Immature Granulocytes 0.4 % (0-0.5); % Lymphocytes 13.9 % (20.5-51.1); % Monocytes 7.9 % (1.7-9.3); % Neutrophils 72.7 % (42.2-75.2); Absolute Basophils 0.1 10^3/uL (0-0.2); Absolute Eosinophils 0.3 10^3/uL (0-0.7); Absolute Monocytes 0.6 10^3/uL (0.1-0.6); Absolute Neutrophils 5.1 10^3/uL (1.4-6.5); Hematocrit 41.3 % (37.0-47.0); Hemoglobin 13.5 g/dL (12.0-16.0); Mean Corp Hgb Conc. 32.7 g/dL (33.0-37.0); Mean Corpuscular Hgb 30.8 pg (27.0-31.0); Mean Corpuscular Volume 94.1 fL (81.0-99.0); Mean Platelet Volume 10.3 fL (7.4-10.4); Nucleated Red Blood Cells % 0 %; Platelet Count 126 10^3/uL (130-400); Red Blood Cell Count 4.39 10^6/uL (4.20-5.40); Red Cell Dist. Width 12.8 % (11.5-14.5)
[2023-05-21 13:38] LABS: Glycohemoglobin (HgbA1c) 5.8 % (4.0-5.6)
[2023-05-21 14:03] LABS: Vitamin D, 25-OH*** 27.4 ng/mL (30-80)
[2023-05-21 14:23] LABS: TSH Reflex To Free T4 2.51 uIU/ml (0.47-4.68)
[2023-05-21 14:33] LABS: ALT (SGPT) < 10 U/L (0-35); AST (SGOT) 22 U/L (14-36); Albumin 3.7 g/dl (3.5-5.0); Alkaline Phosphatase 96 U/L (38-126); Blood Urea Nitrogen 18 mg/dl (7-17); Calcium 9.6 mg/dl (8.4-10.2); Carbon Dioxide 27 mmol/L (22-30); Chloride 100 mmol/L (98-107); Glucose 77 mg/dl (70-99); HDL Cholesterol 95 mg/dl; LDL Cholesterol, Calculated 78 mg/dl; Potassium 4.1 mmol/L (3.5-5.1); Sodium 136 mmol/L (135-145); Total Cholesterol 189 mg/dl (50-199); Total Protein 6.7 g/dl (6.3-8.2); Triglyceride 84 mg/dl (10-149); Very Low Density Lipoprotein 16 mg/dl (0-30); eGFR > 60.00
== END ==
LOC: REG 11:23
PROVIDERS: ATTENDING PHYSICIAN Family Medicine
DX: E78.00 Pure hypercholesterolemia, unspecified (principal); R73.01 Impaired fasting glucose; E03.9 Hypothyroidism, unspecified; R53.83 Other fatigue; E55.9 Vitamin D deficiency, unspecified
CPT/HCPCS: 36415; 80053; 80061; 82306; 83036; 84443; 85025

== ENCOUNTER → 2023-06-03 11:07 | Outpatient (REF) | payer MEDICARE, BC, SELFPAY ==
--- NOTE | 2023-06-03 14:10 | EEG.RPT ---
Electroencephalogram Report
Recording
Date of EE06/03/23
Type of EEG: Routine
Length of EEG recordin mins
Done with Video Recording: Yes
Patient Status: Outpatient
Recording Conditions: Awake
Hyperventilation Performed: No
Photic Stimulation Performed: Yes
Report
METHODS
A 21 channel digitized electroencephalogram was performed at [facility]. The 10/20 international system of electrode placement was used. In addition to EEG, the patient was monitored for EKG. The duration of the recording was 65 minutes.
BACKGROUND
During the awake state, with the eyes closed, the background consisted of a normal amplitude, 10 Hertz posterior reactive rhythm that attenuated appropriately with eye opening. Beta activity was distributed diffusely with an anterior predominance.
There was a normal anterior-posterior voltage gradient. With eye opening the background activity changed to a low voltage mixture of alpha, beta, and occasional theta range frequencies. There were no significant asymmetries of background activity
noted.
HYPERVENTILATION
Hyperventilation was not performed.
PHOTIC STIMULATION
Photic stimulation using a step-hernandez increase in photic frequency varying from 1-31 Hertz resulted in no driving responses but no appearance of abnormal activity.
ABNORMAL EEG ACTIVITY
None
CLINICAL EVENTS
None
INTERPRETATION AND CLINICAL CORRELATION
This EEG is normal during the awake state and during photic stimulation. No seizures were noted during the recording. The study was obscured by right hemispheric muscle artifact at times, during which time underlying seizure activity cannot be
definitively ruled out. A normal EEG, in itself, does not rule out a diagnosis of epilepsy. If clinical suspicion for seizure persists, a sleep-deprived and/or prolonged recording may be warranted.
== END ==
LOC: EEG 11:07
PROVIDERS: ATTENDING PHYSICIAN Nurse Practitioner Adult Health; FAMILY PHYSICIAN Family Medicine
DX: R56.9 Unspecified convulsions (principal)
CPT/HCPCS: 95813

== ENCOUNTER → 2023-06-22 09:06 | Outpatient (REF) | payer MEDICARE, BC, SELFPAY ==
--- NOTE | 2023-06-23 16:06 | EEG.RPT ---
Electroencephalogram Report
Recording
Date of EE06/23/23
Type of EEG: Ambulatory
Length of EEG recordin day 32 minutes
Done with Video Recording: No
Patient Status: Outpatient
Recording Conditions: Awake, Drowsy and Asleep
Hyperventilation Performed: Yes
Photic Stimulation Performed: Yes
Report
24 HOUR AMBULATORY EEG SUMMARY
24 HOUR EEG CONCLUSION(S):
Unremarkable EEG for age
CLINICAL CORRELATION:
Although normative values not been established for a person of this advanced age, this study was unremarkable in all aspects. A normal EEG may not rule out a diagnosis of epilepsy.
The patient�s logs did not indicate clinical symptoms. The patient's episode of falling out of bed was not associated with epileptiform activity.
Consideration for multiple day monitoring may be given if concerns for epilepsy remain.
Clinical correlation is advised.
METHODS:
A 21 channel digitized electroencephalogram (EEG) was initiated in the Clinical Neurophysiology Laboratory. The patient wore the device outside of the laboratory and returned after 24 hours for electrode and recorder removal. The 10/20
international system of electrode placement was used with bipolar electrode montage recorded. ECG was monitored.
IMPRESSION(S):
Quality
Good, loss of electrodes with duration of study
Background
In maximal wakefulness there was an alpha background, usually theta.
There was a normal anterior-posterior voltage gradient.
No significant asymmetries of background activity noted.
Sleep
Drowsiness was suggested by slowing of the background rhythms
Stage I sleep was recorded
Stage 2 sleep was recorded
Hyperventilation
Did not activate record
Photic stimulation
Unremarkable and did not activate record
ECG:
Normal sinus rhythm
== END ==
LOC: RCS 09:06
PROVIDERS: ATTENDING PHYSICIAN Nurse Practitioner Adult Health; FAMILY PHYSICIAN Family Medicine
DX: R56.9 Unspecified convulsions (principal)
CPT/HCPCS: 95708

== ENCOUNTER 2023-07-13 23:20 | Inpatient (IN) | payer MEDICARE, BC, SELFPAY ==
[2023-07-13 21:52] VITALS: BP 170/94
--- NOTE | 2023-07-13 21:57 | ED.GENMED ---
History of Present Illness
<PAL Romero - Last Filed: 07/14/23 06:18>
General
Chief Complaint: Anal/Rectal Problem
Time Seen by Provider: 07/13/23 21:56
History of Present Illness
History of Present Illness:
This is an 87 YO F with a PMH of Dementia, Parkinson's disease, AFIB, HTN, and POW1 from hemorrhoidal banding, who presents here today for a large amount of clot-like, bright red bleeding per rectum. Pt states this started this evening, but is
unsure due to her past medical history, and she is in assisted living. Unknown on whether patient has tried to alleviate her symptoms. She denies abdominal pain or radiating pain. She denies chest pain. She denies nausea, vomiting, and diarrhea. She
does not remember when her last bowel movement was. Pt reports this has never happened before. She is currently taking Nitrofurantoin 100 mg capsule Q 12 hours for a UTI (started yesterday).
Family history was not taken. She states she has had 3 alcoholic drinks in the past year. She denies a smoking history.
Past History
<PAL Romero - Last Filed: 07/14/23 06:18>
Past History
ED Past Medical History: Arrthythmia (Atrial fib), GERD, HTN, Hypercholesterolemia, Hypothyroidism, Other (Parkinson's Disease, Overactive bladder, vitamin D deficiency, Raynaud's, TMJ, vasovagal syncope, xerophthalmia) and Other (Thrombocytopenia
resolved 2020, urinary tract infections)
ED Past Surgical History: Cardiac (Pacemaker), Gynecological (Hysterectomy), Orthopedic (Pelvic fracture 2020), Tonsilectomy and Other (Cataract extraction, bunionectomy, bilateral eyebrow lifts)
Patient has exhibited threatening behavior?: No
PSI?: No
Social History
Tobacco: Non-smoker
Alcohol: None
Drug: None
Personal:
Living: with family
Employment: Retired
Family History
Family History: Other (review and non-contributory)
Phy Exam
<PAL Romero - Last Filed: 07/14/23 06:18>
Physical Exam
Physical Exam:
Clot-like bleeding, bright red blood per rectum
Normal rate and rhythm, normal respirations
Course
<PAL Romero - Last Filed: 07/14/23 06:18>
Orders/Labs/Results
Orders:
Orders
07/13/23 22:15
Type+Screen Urgent
Complete Blood Count/No Diff Urgent
Comprehensive Metabolic Panel Urgent
07/13/23 22:28
PT/INR [Prothrombin Time] Urgent
07/13/23 22:43
CBC/No Diff [Complete Blood Count/No Diff] Urgent
07/13/23 22:57
Tranexamic Acid 1000 mg/100 ml [Tranexamic Acid] 1,000 mg in 100 ml IV ONCE
Abnormal Lab Results
07/13/23 07/13/23
22:15 22:43
MCH 31.5 H pg 31.2 H pg
(27.0-31.0) (27.0-31.0)
Plt Count 116 L 10^3/uL 115 L 10^3/uL
(130-400) (130-400)
MPV 10.5 H fL
(7.4-10.4)
BUN 29 H mg/dl
(7-17)
Crossmatch IS Only See Detail
07/13/23 22:43
07/13/23 22:15
Vital Signs
Initial and Last Documented VS:
Initial Vital Signs
Temp Pulse Resp BP Pulse Ox
97.6 F 75 17 170/94 99
07/13/23 21:52 07/13/23 21:52 07/13/23 21:52 07/13/23 21:52 07/13/23 21:52
Last Documented Vital Signs
Temp Pulse Resp BP Pulse Ox
99.3 F 77 15 131/85 93
07/14/23 02:45 07/14/23 05:30 07/14/23 05:30 07/14/23 05:30 07/14/23 05:30
<Jitendra Garcia, DO - Last Filed: 07/14/23 00:48>
Orders/Labs/Results
Orders:
Orders
07/13/23 22:15
Type+Screen Urgent
Complete Blood Count/No Diff Urgent
Comprehensive Metabolic Panel Urgent
07/13/23 22:28
PT/INR [Prothrombin Time] Urgent
07/13/23 22:43
CBC/No Diff [Complete Blood Count/No Diff] Urgent
07/13/23 22:57
Tranexamic Acid 1000 mg/100 ml [Tranexamic Acid] 1,000 mg in 100 ml IV ONCE
Abnormal Lab Results
07/13/23 07/13/23
22:15 22:43
MCH 31.5 H pg 31.2 H pg
(27.0-31.0) (27.0-31.0)
Plt Count 116 L 10^3/uL 115 L 10^3/uL
(130-400) (130-400)
MPV 10.5 H fL
(7.4-10.4)
BUN 29 H mg/dl
(7-17)
Crossmatch IS Only See Detail
07/13/23 22:43
07/13/23 22:15
Vital Signs
Initial and Last Documented VS:
Initial Vital Signs
Temp Pulse Resp BP Pulse Ox
97.6 F 75 17 170/94 99
07/13/23 21:52 07/13/23 21:52 07/13/23 21:52 07/13/23 21:52 07/13/23 21:52
Last Documented Vital Signs
Temp Pulse Resp BP Pulse Ox
99.3 F 77 15 131/85 93
07/14/23 02:45 07/14/23 05:30 07/14/23 05:30 07/14/23 05:30 07/14/23 05:30
<PAL Romero - Last Filed: 07/14/23 06:18>
MDM/Problems Addressed
Differential Diagnosis Includes:
Complication from hemorrhoidal banding 1 week ago, lower GI bleed, diverticulitis, diverticulosis, colon cancer
MDM/Problems Addressed:
Clot-like, Bright red blood per rectum
<PAL Romero - Last Filed: 07/14/23 06:18>
*Critical Care Note
Total Time (30-74mins, 75-104mins- exclusive of procedures): Not Applicable
ED Attending Note
<PAL Romero - Last Filed: 07/14/23 06:18>
-
Portions of this chart may have been created with voice recognition software.� Occasional wrong word or��sound alike� substitutions may have occurred due to the inherent limitations of voice recognition software.
<Jitendra Garcia DO - Last Filed: 07/14/23 00:48>
ED Attending Note
Patient seen and examined by attending physician: Yes
I performed the substantive portion of visit, reviewed & personally made and approve the management plan that is documented in note by myself or VIVIANA.: Yes
ED Attending Note:
Pleasantly demented 87-year-old female presents with rectal bleeding. Patient had hemorrhoidal ligation 1 week ago. Tonight her caregiver noticed bright red blood per rectum. Called 911. Patient is not on any blood thinners. Patient lives at
home but has 24-hour care with this caregiver. Patient is more confused than normal but according to the caregiver, she has a UTI. She is taking Macrobid. Patient had constipation over the weekend and caregiver states that she passed 1 hard stool
on Wednesday. She noted that it was blood-tinged. Patient was seen in conjunction with the PA student. I have reviewed and agree with the history and treatment plan presented. On my independent physical exam, patient is somnolent, arousable to
voice. Heart is regular rate and rhythm. Lungs are clear to auscultation. Focused physical exam. There is a large amount of clotting in her brief. This is coming from her rectum.
Patient is not on any blood thinners.
Spoke with Dr. Jitendra Panchal, colorectal surgery who did the original procedure. He request that patient be admitted to hospitalist service. I did start TXA he is in agreement. They will continue to monitor her hemoglobin tonight.
Discharge Plan
Departure
Patient Disposition: Admit
Date of Disposition: 07/13/23
Time of Disposition: 23:08
Admit to: ICU and OR
Presentation/result/management discussed w/ accepting MD/DO: Hospitalist
Condition: Good
Discharge Problem:
Parkinson's disease, Rectal bleeding
Interventions
Interventions:
*General Assessment Last Done: 07/13/23 21:52
*Neglect/Abuse Screening Last Done: 07/13/23 21:52
ED- Fall Risk Assessment Last Done: 07/14/23 02:39
*Nursing Disposition Last Done: 07/14/23 02:39
YK-Ucvord-Vxihbryovg Assessment Last Done: 07/14/23 00:01
ED-Skin Assessment Last Done: 07/14/23 00:05
Discharge Date and Time
Discharge Date/Time: 07/14/23 02:40
[2023-07-13 22:26] LABS: Hematocrit 39.7 % (37.0-47.0); Hemoglobin 13.6 g/dL (12.0-16.0); Mean Corp Hgb Conc. 34.3 g/dL (33.0-37.0); Mean Corpuscular Hgb 31.5 pg (27.0-31.0); Mean Corpuscular Volume 91.9 fL (81.0-99.0); Mean Platelet Volume 10.5 fL (7.4-10.4); Platelet Count 116 10^3/uL (130-400); Red Blood Cell Count 4.32 10^6/uL (4.20-5.40); Red Cell Dist. Width 13.1 % (11.5-14.5); White Blood Cell Count 7.4 10^3/uL (4.8-10.8)
[2023-07-13 22:30] VITALS: BP 146/100
[2023-07-13 22:44] LABS: ALT (SGPT) < 10 U/L (0-35); AST (SGOT) 22 U/L (14-36); Albumin 3.6 g/dl (3.5-5.0); Alkaline Phosphatase 80 U/L (38-126); Blood Urea Nitrogen 29 mg/dl (7-17); Carbon Dioxide 29 mmol/L (22-30); Chloride 101 mmol/L (98-107); Glucose 93 mg/dl (70-99); Potassium 4.3 mmol/L (3.5-5.1); Sodium 135 mmol/L (135-145); Total Bilirubin 0.6 mg/dl (0.2-1.3); Total Protein 6.5 g/dl (6.3-8.2); eGFR > 60.00
[2023-07-13 22:53] LABS: Hematocrit 39.5 % (37.0-47.0); Hemoglobin 13.5 g/dL (12.0-16.0); Mean Corp Hgb Conc. 34.2 g/dL (33.0-37.0); Mean Corpuscular Hgb 31.2 pg (27.0-31.0); Mean Corpuscular Volume 91.2 fL (81.0-99.0); Mean Platelet Volume 10.3 fL (7.4-10.4); Platelet Count 115 10^3/uL (130-400); Red Blood Cell Count 4.33 10^6/uL (4.20-5.40); Red Cell Dist. Width 13.1 % (11.5-14.5); White Blood Cell Count 7.4 10^3/uL (4.8-10.8)
[2023-07-13 23:00] VITALS: BP 157/101
[2023-07-13 23:02] LABS: INR 1.07; PT 13.7 Sec (11.4-14.6)
--- NOTE | 2023-07-13 23:02 | HPS.HSE ---
Family Physician
-
Family Physician:
Chief Complaint
-
rectal bleeding
History of Present Illness
87 YO F with a PMH of Dementia, Parkinson's disease, AFIB, HTN, and POW1 from hemorrhoidal banding, who presents here today for a large amount of clot-like, bright red bleeding per rectum. Pt states this started this evening, She denies abdominal
pain, rectal pain. She denies chest pain. She denies nausea, vomiting, and diarrhea..denied headache, dizziness, syncopal episode. Patient denies chest pain or short of breath. denied fever, chill.
patient was started on nitrofurantoin yesterday for UTI.
Medical History
Past Medical History
Past Medical History: Reports Other
Additional Past Medical History:
A-fib
GERD
Hypertension
Hyperlipidemia
Hypothyroidism
Parkinson disease
Overactive bladder disease
Thrombocytopenia
UTI
Past Surgical History: Reports Other
Additional Past Surgical History:
Pacemaker
Hysterectomy
Pelvic fracture
Tonsillectomy
Cataract extraction
Bunionectomy
Social History
Tobacco: Non-smoker
Alcohol: None
Drug: None
Personal: Single
Living: Alone
Family History
Family History: Not pertinent
Allergies / Home Medications
Allergies reflects when Allergies were last updated in [facility] [facility] [employer].
Home Medications with original date entered in [facility] [employer] [facility]
Allergy/Medication List:
Allergies
Allergy/AdvReac Type Severity Reaction Status Date / Time
bisacodyl Allergy Nausea Verified 02/04/23 14:14
[From Dulcolax (bisacodyl)]
Home Medications
rosuvastatin 5 mg tablet 5 mg PO DAILY@1999 High cholesterol 01/12/20
rivastigmine 9.5 mg/24 hour transdermal patch 13.3 mg transdermal DAILY Neurological Condition 06/15/21
memantine 10 mg tablet 10 mg PO BID dementia 06/23/21
cholecalciferol (vitamin D3) 25 mcg (1,000 unit) tablet 2,000 units PO DAILY Supplement 07/16/21
losartan 50 mg tablet 50 mg PO DAILY@1999 Blood pressure 07/16/21
levothyroxine 75 mcg tablet (Synthroid) 75 mcg PO DAILY@0700 Thyroid 02/11/22
carbidopa 25 mg-levodopa 100 mg tablet 2 tab PO DAILY@1999 Neurological Condition 05/04/22
carbidopa 25 mg-levodopa 100 mg tablet 3 tab PO DAILY@0800,1200,1600 Neurological Condition 05/04/22
diltiazem HCl 120 mg capsule,extended release 24 hr 120 mg PO DAILY Blood Pressure 05/04/22
acetaminophen 500 mg tablet 500 mg PO Q6H PRN mild pain 08/15/22
fluticasone propionate 50 mcg/actuation nasal spray,suspension 1 spray intranasal PRN PRN ALLERGY 08/15/22
sennosides 8.6 mg tablet 8.6 mg PO DAILY PRN CONSTIPATION 08/15/22
psyllium 1 packet PO DAILY Constipation 04/11/23
Crancaps 1 cap PO DAILY Supplement 05/02/23
Thc Gummies 1 gummy PO HS PRN sleep 05/02/23
docusate sodium 100 mg capsule 100 mg PO DAILY@1999 Constipation 05/02/23
melatonin 5 mg tablet 5 - 10 mg PO HS PRN sleep 05/02/23
sotalol 80 mg tablet 80 mg PO BID Arrhythmia 05/02/23
vibegron 75 mg tablet (Gemtesa) 75 mg PO DAILY Urinary Issue 05/02/23
Review of Systems
-
Constitutional: Reports No Symptoms
EENT: Reports No Symptoms
Respiratory: Reports No Symptoms
Cardiac: Reports No Symptoms
Abdomen/GI: Reports Other (Rectal bleed)
: Reports No Symptoms
Musculoskeletal: Reports No Symptoms
Skin: Reports No Symptoms
Neurological: Reports No Symptoms
Endocrine: Reports No Symptoms
Hematologic/Lymphatic: Reports No Symptoms
Psych: Reports No Symptoms
Physical Exam
Vital Signs
Vital Signs
Temp Pulse Resp BP Pulse Ox
97.6 F 75 17 170/94 99
07/13/23 21:52 07/13/23 21:52 07/13/23 21:52 07/13/23 21:52 07/13/23 21:52
Physical Exam
General: Well Developed, Well Nourished and No Apparent Distress
HEENT: NormoCephalic, Moist mucous membranes and Atraumatic
Respiratory: Clear
Cardiac: S1/S2 and Regular Rhythm; No Murmur or Rub
GI: Soft, Non Tender, Non Distended, Normal Bowel Sounds and Other; No Organomegaly
Rectal: Deferred by Provider and Other (Rectal bleeding with clots noted)
Musculoskeletal: No Clubbing, No Cyanosis and No Edema
Skin: No Rash
Neuro: AO x 3 and Nonfocal/grossly intact
Psych: Calm
Laboratory Results
-
07/13/23 22:43
07/13/23 22:15
Laboratory Results
Total Bilirubin 0.6 mg/dl (0.2-1.3) 07/13/23 22:15
AST 22 U/L (14-36) 07/13/23 22:15
ALT < 10 U/L (0-35) 07/13/23 22:15
Alkaline Phosphatase 80 U/L (38-126) 07/13/23 22:15
Data Reviewed
-
Lab Data: Labs Reviewed by me
Impression/Plan
-
# Rectal bleeding
# History of hemorrhoid ligation a week ago
-Hemoglobin stable at 13.5
-Colorectal consult
-Will keep patient n.p.o.
-Monitor hemoglobin
-tranexamic ordered in ER
# Essential hypertension
-Losartan continued
#History of A-fib off anticoagulation status post pacemaker
-Diltiazem ordered
#History of Parkinson disease
-Carbidopa-levodopa continued
#UTI
-nitrofurantoin continued
#Ambulatory dysfunction
PT/OT
#hypothyroidism
-continue levothyroxine
# DVT prophylaxis
-SCD
# CODE STATUS
-Full code
[2023-07-13] MEDS: TRANEXAMIC ACID 100 IV (23:39)
--- NOTE | 2023-07-13 23:54 | W.PN.UPDATE ---
Addendum entered and electronically signed by Ave Reese MD 07/13/23 23:59:
Medications on admission are unable to be verified or confirmed at this time.
Original Note:
Update Note
Progress Note Update
87 yo F with PMH of Dementia, Parkinson's disease, A FIB, HTN, recent hemorrhoidal banding, p/w large amount of rectal bleed with clot that may have started in the evening of admission.
She denies to abdominal pain etc.
Patient was started on nitrofurantoin the day prior for UTI.
A/P:
# BRBPR/ Rectal bleeding with clot
# History of hemorrhoid ligation one week prior
Hemoglobin stable at 13.5 today
Colorectal consult
Will keep patient n.p.o.
Monitor hemoglobin
Tranexamic ordered in ER
# Essential hypertension
Losartan continued with holding parameters
# History of A-fib
# status post pacemaker
Not on anticoagulation
Cont Diltiazem with holding parameters
# History of Parkinson disease
Carbidopa-levodopa continued
# UTI
nitrofurantoin continued
# Ambulatory dysfunction
PT/OT
# hypothyroidism
continue levothyroxine
DVT prophylaxis: SCD
CODE STATUS-Full code
[2023-07-14] VITALS (33 sets, daily range): BP systolic 98–192; BP diastolic 69–112; BMI 22.3
--- NOTE | 2023-07-14 00:57 | CON.CRS ---
Consultation
-
Performing Provider: Jitendra Panchal MD
Reason for Consultation: Anal bleeding
Medical History
-
History of Present Illness:
Patient is an 87-year-old female with PMH of dementia, Parkinson's disease, A-fib (not on any AC due to fall risk), HTN, HLD, SSS s/p PPM, urinary incontinence (s/p prior Botox injections with Dr. Armas), GERD, Raynaud's, internal hemorrhoid
bleeding with prolapse s/p RBL x 2 who presents to the ED via ambulance for copious bright red blood per rectum. On 07/05, I performed a third RBL to the Q internal hemorrhoid for her symptoms of hemorrhoidal bleeding and prolapse. Her full-time
care provider, Heaven, was present and explained the history. After the RBL, the patient had done well. She did have 2 days of constipation starting on Wednesday, so she gave the patient a MiraLAX this morning. The patient had a large hard BM at about
1 to 2 PM. Shortly after, Heaven was given a 4-hour break and the jet piercer operator filling in for her was getting the patient ready for bed when she noticed blood in her diaper around 8 PM. She called Heaven back to evaluate. When Heaven arrived, she noted
that there was blood dripping from her bottom that appeared bright red. She changed the patient and spoke with the patient's daughter, Chela, who is the POA. They kept an eye on the bleeding for about 30 minutes. When it did not stop, they called
911. She said that she saturated her diaper. She denied that the patient complained of any dizziness or lightheadedness. However, it was the patient's bedtime so she was attempting to get into bed to go to sleep. Upon arrival in the ED, the
diaper was changed and there was copious blood clot with red blood. Per my instruction, the ED placed a Molina in the anal canal and inflated the balloon and placed it on tension until I could get there. Her Hb was 13.6 and was repeated 30 minutes
later and was 13.5. Denied any abdominal pain, chest pain or SOB. The patient was sleepy but easily arousable and responded appropriately to questions. Her baseline is A&O x1�2. Her last colonoscopy was in [address] Garrido, which was
remarkable for multiple hyperplastic polyps, a tubular adenoma and diverticulosis.
Past Medical History
Past Medical History: Other (As above)
Past Surgical History: Other (PPM, hysterectomy, tonsils, cataracts)
Social History
Tobacco: Non-Smoker
Alcohol: None
Drug: None
Personal:
Living: Other (With jet piercer operator)
Employment: Retired
Family History
Family History: Reviewed & Not Pertinent and Other (No family history of CRC)
Allergies / Home Medications
Allergy/AdvReac Type Severity Reaction Status Date / Time
bisacodyl Allergy Nausea Verified 02/04/23 14:14
[From Dulcolax (bisacodyl)]
�Medication �Instructions �Recorded �Confirmed �Type
rosuvastatin 5 mg tablet 5 mg PO DAILY@1999 High cholesterol 01/12/20 05/02/23 History
rivastigmine 9.5 mg/24 hour 13.3 mg transdermal DAILY 06/15/21 05/02/23 History
transdermal patch Neurological Condition
memantine 10 mg tablet 10 mg PO BID dementia 06/23/21 05/02/23 History
cholecalciferol (vitamin D3) 25 2,000 units PO DAILY Supplement 07/16/21 05/02/23 History
mcg (1,000 unit) tablet
losartan 50 mg tablet 50 mg PO DAILY@1999 Blood pressure 07/16/21 05/02/23 History
levothyroxine 75 mcg tablet 75 mcg PO DAILY@0700 Thyroid 02/11/22 05/02/23 History
(Synthroid)
carbidopa 25 mg-levodopa 100 mg 2 tab PO DAILY@1999 Neurological 05/04/22 05/02/23 History
tablet Condition
carbidopa 25 mg-levodopa 100 mg 3 tab PO DAILY@0800,1200,1600 05/04/22 05/02/23 History
tablet Neurological Condition
diltiazem HCl 120 mg 120 mg PO DAILY Blood Pressure 05/04/22 05/02/23 History
capsule,extended release 24 hr
acetaminophen 500 mg tablet 500 mg PO Q6H PRN mild pain 08/15/22 05/02/23 History
fluticasone propionate 50 1 spray intranasal PRN PRN ALLERGY 08/15/22 05/02/23 History
mcg/actuation nasal
spray,suspension
sennosides 8.6 mg tablet 8.6 mg PO DAILY PRN CONSTIPATION 08/15/22 05/02/23 History
psyllium 1 packet PO DAILY Constipation 04/11/23 05/02/23 History
Crancaps 1 cap PO DAILY Supplement 05/02/23 05/02/23 History
Thc Gummies 1 gummy PO HS PRN sleep 05/02/23 05/02/23 History
docusate sodium 100 mg capsule 100 mg PO DAILY@2000 Constipation 05/02/23 05/02/23 History
melatonin 5 mg tablet 5 - 10 mg PO HS PRN sleep 05/02/23 05/02/23 History
sotalol 80 mg tablet 80 mg PO BID Arrhythmia 05/02/23 05/02/23 History
vibegron 75 mg tablet (Gemtesa) 75 mg PO DAILY Urinary Issue 05/02/23 05/02/23 History
Review of Systems
-
All other systems: Negative unless noted
A 10 point review of systems was completed, and was negative except as per HPI.
Physical Exam
Vital Signs
Temp 97.6 F 07/13/23 21:52
Pulse 75 07/14/23 00:00
Resp Rate 14 07/14/23 00:00
Blood pressure 167/106 07/14/23 00:00
SaO2 99 07/13/23 23:15
07/12/23 07/13/23 07/14/23
06:59 06:59 06:59
Actual Weight 66 kg
Lab Results / Allergies
05/21/24 22:43
07/13/23 22:15
WBC 7.4 10^3/uL (4.8-10.8) 07/13/23 22:43
Hgb 13.5 g/dL (12.0-16.0) 07/13/23 22:43
Hct 39.5 % (37.0-47.0) 07/13/23 22:43
Plt Count 115 10^3/uL (130-400) L 07/13/23 22:43
Allergy/AdvReac Type Severity Reaction Status Date / Time
bisacodyl Allergy Nausea Verified 02/04/23 14:14
[From Dulcolax (bisacodyl)]
Physical Exam
General: No Apparent Distress
HEENT: Normocephalic and Atraumatic
Respiratory: Non Labored Respirations
GI: Soft, Non Tender and Non Distended
Rectal: Other (Molina had dislodged from the rectum; blood and clot on exam; on ROXANNA, a palpable nodule was noted in LLQ, likely location of RBL; upon completion of the ROXANNA, more blood and clot noted; the Molina balloon not large enough to tamponade
anal canal, packed multiple gauze for tamponade effect)
Skin: Warm and Dry
Neuro: Awake (Somnolent but easily arousable and appropriately responsive) and AO x 3 (A&Ox1)
Data Reviewed
-
Labs: Labs Reviewed by me, Discussed with Physician, Discussed with Nurse, Discussed with Patient and Discussed with Family
Assessment / Plan
-
87-year-old female with PMH of dementia, Parkinson's disease, A-fib (not on any AC due to fall risk), HTN, HLD, SSS s/p PPM, urinary incontinence (s/p prior Botox injections with Dr. Armas), GERD, Raynaud's, internal hemorrhoid bleeding with
prolapse s/p RBL x 2 who presents to the ED via ambulance for copious bright red blood per rectum. On 07/05, I performed a third RBL to an LLQ internal hemorrhoid for her symptoms of hemorrhoidal bleeding and prolapse. No issues post-procedure until
8pm today when she started having copious BRBPR. Denies other associated symptoms. In the ED, saturated multiple diapers. Per my instruction, the ED placed a large Molina in the anal canal and inflated the balloon and placed it on tension until I
could get there. Her Hb was 13.6 and was repeated 30 minutes later and was 13.5; hemodynamically stable; patient was sleepy but easily arousable and responded appropriately to questions. Her baseline is A&O x1�2. Her last colonoscopy was in [address] Garrido, which was remarkable for multiple hyperplastic polyps, a tubular adenoma and diverticulosis.
�Lower GI bleed s/p RBL 6 days ago; most likely, bleeding is coming from the rubber band ligation site as this is within the timeframe of the hemorrhoid falling off and leaving behind a friable wound; differential also includes more proximal source
such as diverticulosis or colonic AVM; discussed in depth with Heaven, the caregiver, and the patient's son and daughter Chela; bleeding seems persistent despite dose of TXA and attempts at applying pressure; therefore, I recommend OR to identify source
of bleeding and to control this; risks, benefits and alternatives were explained and the family was in agreement; Chela, the POA, provided verbal consent over the phone with the nurse as witness; the consent was signed and placed in the chart
� Keep n.p.o. with IVF
� Hold all AC and DVT PPx, trend CBC; transfuse as needed
� Bedrest until OR
�Maintain gauze packing within the anal canal
� Discussed case with overnight charge nurse; currently, there is only 1 OR team available and there is an emergency currently undergoing; while awaiting the OR, will move forward with CTA to rule out more proximal source of bleeding, will transfer
to ICU for closer monitoring and will type and cross 2 units on hold
�Discussed with hospitalist and ED physician
[2023-07-14 01:31] LABS: Hemoglobin 11.3 g/dL (12.0-16.0)
--- NOTE | 2023-07-14 03:59 | PTCARENOTE ---
Received pt to ICU room 3362 from ER at 0213. Admitted for rectal bleeding, s/p banding of hemorrhoids 1 week ago. When turning patient to assess her and change linens, no active bleeding noted from rectum. Per ER nurse, she had just been cleaned up
downstairs. Dr. Mirtha Panchal in room when pt arrived and replaced packing in rectum at bedside. Pt has had no c/o pain except for when packing was being inserted. Pt A/O to person, place, and time but is forgetful at times. Per membership solicitor, pt will try to
get OOB especially if she feels the urge to urinate. Bed alarm activated. Pt has been 100% A-paced on monitor with HR in 70s. BP has been high, mostly in 180s since arrival. Physical assessment completed, see nursing shift assessment flowsheet for
full details. As of 399, no blood noted in pt's brief. Repeat labs sent, pending. Pt to go to OR this AM, as soon as it is available. Press Operator Printing, Jennifer, at bedside. Admission database completed.
[2023-07-14 04:08] LABS: Hemoglobin 12.8 g/dL (12.0-16.0); Mean Corp Hgb Conc. 33.7 g/dL (33.0-37.0); Mean Platelet Volume 10.6 fL (7.4-10.4); Platelet Count 112 10^3/uL (130-400); White Blood Cell Count 7.4 10^3/uL (4.8-10.8)
[2023-07-14 04:25] LABS: Blood Urea Nitrogen 24 mg/dl (7-17); Calcium 8.8 mg/dl (8.4-10.2); Carbon Dioxide 29 mmol/L (22-30); Chloride 102 mmol/L (98-107); Estimated Creatinine Clearance 57 ml/min; Glucose 95 mg/dl (70-99); Magnesium 1.9 mg/dl (1.6-2.3); Phosphorus 3.5 mg/dl (2.5-4.5); Potassium 4.2 mmol/L (3.5-5.1); Sodium 136 mmol/L (135-145); eGFR > 60.00
[2023-07-14] MEDS: SYNTHROID PO (05:35)
--- NOTE | 2023-07-14 07:11 | PTCARENOTE ---
Pt transferred to OR via bed at around 0700. Exelon patch removed from left shoulder prior to leaving for OR.
--- NOTE | 2023-07-14 07:20 | CON.INTV ---
Consultation
Consultation Request
Date/Time Consultation Requested: 07/14/23
Date/Time Consultation Performed: 07/14/23
Performing Provider: Hannah
Reason for Consultation: ICU
Medical History
-
History of Present Illness:
Patient is an 87-year-old male with previous history of dementia, Parkinson's disease, A-fib, hypertension, ambulatory dysfunction with multiple falls presenting to ER for large amount of clot like bright red blood per rectum. This started
evening of admission. Hemoglobin on admission 13.5, otherwise hemodynamically stable. Admitted to ICU for acute GI bleed.
She has a prior history of internal hemorrhoids and hemorrhoid bleeding with prolapse. She has 2-day history of constipation, given stool softeners and MiraLAX at home. She had been reportedly bleeding for about 30 minutes. She is slated for the
OR by colorectal surgery.
Past Medical History
Past Medical History: Other (see list below)
Social History
Tobacco: Non-smoker
Alcohol: None
Drug: None
Family History
Family History: Reviewed & Not Pertinent
Allergies / Home Medications
Allergies
Allergy/AdvReac Type Severity Reaction Status Date / Time
bisacodyl Allergy Nausea Verified 07/14/23 01:00
[From Dulcolax (bisacodyl)]
Home Medications
�Medication �Instructions �Recorded �Confirmed �Last Taken �Type
rosuvastatin 5 mg tablet 5 mg PO DAILY@1999 High cholesterol 01/12/20 07/14/23 05/03/22 History
rivastigmine 9.5 mg/24 hour 13.3 mg transdermal DAILY 06/15/21 07/14/23 05/04/22 History
transdermal patch Neurological Condition
memantine 10 mg tablet 10 mg PO BID dementia 06/23/21 07/14/23 05/04/22 History
cholecalciferol (vitamin D3) 25 2,000 units PO DAILY Supplement 07/16/21 07/14/23 05/04/22 History
mcg (1,000 unit) tablet
losartan 50 mg tablet 50 mg PO DAILY@1999 Blood pressure 07/16/21 07/14/23 05/04/22 History
levothyroxine 75 mcg tablet 75 mcg PO DAILY@0700 Thyroid 02/11/22 07/14/23 05/04/22 History
(Synthroid)
carbidopa 25 mg-levodopa 100 mg 2 tab PO DAILY@1999 Neurological 05/04/22 07/14/23 05/03/22 History
tablet Condition
carbidopa 25 mg-levodopa 100 mg 3 tab PO DAILY@0800,1200,1600 05/04/22 07/14/23 05/04/22 08:00 History
tablet Neurological Condition
diltiazem HCl 120 mg 120 mg PO DAILY Blood Pressure 05/04/22 07/14/23 05/04/22 History
capsule,extended release 24 hr
acetaminophen 500 mg tablet 500 mg PO Q6H PRN mild pain 08/15/22 07/14/23 Unknown History
fluticasone propionate 50 1 spray intranasal PRN PRN ALLERGY 08/15/22 07/14/23 Unknown History
mcg/actuation nasal
spray,suspension
sennosides 8.6 mg tablet 8.6 mg PO DAILY PRN CONSTIPATION 08/15/22 07/14/23 Unknown History
psyllium 1 packet PO DAILY Constipation 04/11/23 07/14/23 Unknown History
Crancaps 1 cap PO DAILY Supplement 05/02/23 07/14/23 Unknown History
Thc Gummies 1 gummy PO HS PRN sleep 05/02/23 07/14/23 Unknown History
docusate sodium 100 mg capsule 100 mg PO DAILY@1999 Constipation 05/02/23 07/14/23 Unknown History
melatonin 5 mg tablet 5 - 10 mg PO HS PRN sleep 05/02/23 07/14/23 Unknown History
sotalol 80 mg tablet 80 mg PO BID Arrhythmia 05/02/23 07/14/23 Unknown History
gabapentin 200 mg PO HS 07/14/23 07/14/23 Unknown History
midodrine 2.5 mg tablet 2.5 mg PO TID 07/14/23 07/14/23 Unknown History
Review of Systems
-
History Source: Patient
All other systems: Negative unless noted
Vitals / Labs / Diagnostic Testing
Vital Signs
Temp Pulse Resp BP Pulse Ox
99.3 F 78 15 137/82 97
07/14/23 02:45 07/14/23 06:15 07/14/23 06:15 07/14/23 06:00 07/14/23 06:15
Lab Data
07/14/23 03:47
07/14/23 03:47
Laboratory Results
07/13/23
22:28
PT 13.7
INR 1.07
Diagnostic Testing:
Physical Exam
-
HEENT: Normocephalic, Anicteric and Moist Mucous Membranes
Cardiovascular: S1/S2 and Regular Rhythm
Respiratory: Clear and Non-Labored Respirations
GI: Soft, Non Distended and Non Tender
Neurology: Awake, Alert, Oriented, AO x 3 and No Motor Deficits
Skin: Warm, Dry and Good Color
General: Comfortable and Other (NAD)
Assessment
-
Patient is an 87-year-old male with previous history of dementia, Parkinson's disease, A-fib, hypertension, ambulatory dysfunction with multiple falls presenting to ER for large amount of clot like bright red blood per rectum. This started
evening of admission. Hemoglobin on admission 13.5, otherwise hemodynamically stable. Admitted to ICU for acute GI bleed.
LGIB likely hemorrhoidal
2-day history of constipation
Acute blood loss anemia, hemoglobin 11.3
Conditions present GENERAL PRACTICE
A-fib
GERD
Hypertension
Hyperlipidemia
Hypothyroidism
Parkinson disease
Overactive bladder disease
Thrombocytopenia
UTI
Pacemaker
Hysterectomy
Pelvic fracture
Tonsillectomy
Cataract extraction
Bunionectomy
Plan
No current signs of metabolic encephalopathy or MS changes/following commands
Baseline MS reported as dementia
Denies pain at this time.
Pain/sedation: PRN, resume home meds
RASS goals: 0
Hemodynamically stable, not requiring pressors.
Cardiac history reviewed--HTN, Afib on sotalol
Resume home meds
Prior ECHO reviewed indicating normal function, stage II DD
Monitor on telemetry
Oxygen needs: stable on room air
Prior history of lung disease: none
Supplemental O2 as indicated to maintain sats > 89%
CXR/CT in past reviewed indicating NAD
LGIB with plan for CRC intervention
NPO, resume diet when able per team
Matrix Repairer recommendations
Aspiration precautions, HOB > 30 degrees
Speech therapy eval can be considered if at elevated risk
GI prophylaxis if indicated for mechanical ventilation >48 hours, prior history of GERD, stress ulcer formation in the critically ill
Creat at baseline, no history of renal disease
Void trials
Follow urine output, critical I/Os
Replete electrolytes as needed
No signs/symptoms suspicious for infectious etiology at this time
Observe off antibiotics for now
Follow fever trend, WBC count
CBC stable, follow H&H q12 until stable
DVT prophylaxis as assessed based on risk, including mechanical SCDs
Can transfuse if indicated for Hb <7, plt < 10
No prior h/o diabetes
Monitor accuchecks PRN/SS coverage if needed
H/o hypothyroidism, can continue on home synthroid dose
If doing well postop, can likely transfer to floors. We will sign off upon transfer.
Diagnostic Data
Chest X-Ray: Rib/chest 04/20/23- No definite rib fracture identified on the right. Lungs are clear.
08/15/22- No active cardiopulmonary disease.
CT Scan:
Echo: 05/03/23- Mild concentric left ventricular hypertrophy. Normal left ventricular chamber size. Normal left ventricular systolic function. Left ventricular ejection fraction is 60%, by volumetric assessment. Stage II diastolic dysfunction
suggestive of abnormal relaxation and increased filling pressures. Posterior mitral annular calcification. Thickened mitral valve leaflets. Mitral valve opens normally. Mild to moderate mitral regurgitation. Indexed LA volume is severely abnormal (>
48 mL/m2). Trileaflet aortic valve. Thickened aortic valve with adequate leaflet motion. Aortic sclerosis without stenosis. Trace aortic regurgitation is seen. Tricuspid valve opens normally. Moderate tricuspid regurgitation. Estimated pulmonary
artery pressure of 43 mmHg, assuming a right atrial pressure of 3 mmHg. Moderately dilated right atrium. Normal right ventricular size and function. Since echocardiogram 06/16/2021, there is no significant change.
PFT's: 04/28/18- FEV1 2.02L 105%, FVC 2.91L 112%, ratio 70. TLC 4.72L 92%, DLCO 81%- normal study
Reports and relevant images were personally reviewed.
-----
Critical care time 75 mins -- this includes review of history, physical exam, medications, hemodynamic/ventilator parameters, laboratory data, imaging and discussion with house staff, pharmacy, respiratory therapy, hr associate, and nursing.
--- NOTE | 2023-07-14 08:44 | W.IMMPOSTOP ---
Surgical Immed Post Op Note
-
Primary Surgeon: Jitendra Panchal MD
Assisting Surgeon: None
Pre-op Diagnosis: Anal bleeding
Post-op Diagnosis: Anal bleeding
Procedure Performed: EUA, control of bleeding with electrocautery, bilateral pudendal nerve block
Anesthesia Type: MAC with local
Specimen / Cultures: None
Estimated Blood Loss: 2 mL
Complications: None
Operative Findings: 2 cm x 2 cm superficial ulcer in location of prior rubber band ligation in the left lateral position with slight ooze, but nothing copious; used electrocautery to cauterize the wound base; irrigated multiple times and hemostasis
was assured; placed Gelfoam wrapped in Surgicel within the anal canal prophylactically
--- NOTE | 2023-07-14 08:48 | OR.RPT ---
Operative Report
Operative Report
DATE OF OPERATION: 07/14/2023
SURGEON: Jitendra Panchal MD
PREOPERATIVE DIAGNOSIS: Anal bleeding
POSTOPERATIVE DIAGNOSIS: Anal bleeding
OPERATION: Exam under anesthesia, control of anal wound bleeding, bilateral pudendal nerve block
ASSISTANTS:
1. none
ANESTHESIA: MAC w/ local
ESTIMATED BLOOD LOSS: 2 mL
FINDINGS:
1. Left lateral wound within the anal canal about 2 x 2 cm; same location as the RBL placed 6 days ago; minimal to mild ooze that was controlled with electrocautery
2. No other concerning anal pathology
SPECIMENS:
1. None
DRAINS: None
COMPLICATIONS: None
INDICATIONS: The patient is an 87-year-old female who has a history of prolapsing internal hemorrhoids with intermittent bleeding. Based on her surgical risk, the decision was made to move forward with RBL as these are well-tolerated and can be
done without sedation. She had undergone 2 RBL's in the RAQ and RPQ without complication. She underwent an RBL to the LLQ internal hemorrhoid on 07/05. She had done well up until 3 days ago. The patient did not have a bowel movement Wednesday or
Wednesday. Therefore, her caregiver gave her a MiraLAX yesterday morning. The patient had a hard constipated bowel movement at around 1 to 2 PM without any blood. Around 8 PM, she started having bright red blood with clots. 911 was called and she
was transported to the [facility]. In the ED, she saturated multiple diapers. She was hemodynamically stable and her hemoglobin was 13.5. As the likelihood of bleeding from the RBL site was significantly high, I recommended moving forward
directly with surgery for exam under anesthesia and control of bleeding from the hemorrhoid site. The operation was discussed with the patient, her caregiver Heaven, and over the phone with her daughter Chela and son. Risks, benefits and alternatives
were discussed, including but not limited to, recurrent bleeding, infection, urinary retention, damage to nearby structures such as the anal sphincter and anesthetic risks. All were in agreement and Chela, the POClay, gave telephone consent with the
patient's nurse present as witness. The consent was signed and placed in the chart.
After discussing the case with the operating room, there were 2 other surgeries with bleeding patient's. As Ms. Umanzor was hemodynamically stable, the other patients went first. She was transferred to the ICU for close monitoring with type and
cross and 2 units on hold. A CTA was also done to rule out a more proximal source of bleeding. This confirmed active bleeding from hemorrhoids and no bleeding elsewhere. While in the ICU, her hemodynamics remained stable and the bleeding slowed
down after placing Gelfoam anal packing.
PROCEDURE IN DETAIL: The patient was taken to the operating room. The patient was then placed on the operating table in prone position. Sequential compression devices were placed bilaterally. Sedation was commenced without complication. Two seat
belts were secured around the legs and upper back. The buttocks were taped apart. The perineum was prepped and draped in the usual fashion. A time-out was then performed verifying the correct patient, procedure, operative site, positioning, and
special equipment.
Local anesthesia used was a mixture of 60 mL of 0.25% Marcaine without epinephrine (with epinephrine was on backorder) and 0.6 mg of dexamethasone. 40 mL was injected perianally at the beginning of the case. The anorectal exam was performed
assessing all four quadrants of the anal canal using Hill-Uribe retractors in progressively increasing size. Within the anal canal, in the left lateral position, there was a superficial wound in the location of the prior rubber band ligation,
measuring about 2 x 2 cm with very slow mild oozing of blood, most consistent with the source of bleeding. The remainder of the anal canal was without concerning pathology. There were 2 small internal hemorrhoids in the left posterolateral
position and right posteromedial position without bleeding or irritation. The main internal hemorrhoids in the RAQ and RPQ were well-treated with the prior RBLs and well-healed, no evidence of recurrence.
For hemostasis of the LLQ hemorrhoid wound, I used Bovie electrocautery to the wound bed. Hemostasis was easily achieved. The anal canal was copiously irrigated and no bleeding noted. Each quadrant was reassessed with no new findings. The
remaining 20 mL of local were injected. 5 mL was injected bilaterally for a pudendal nerve block. 10 mL was injected around the surgical site and perianally. Hemostasis was reassessed once more using the small Hill-Uribe and was confirmed.
Gelfoam rolled with Surgicel was placed in the operative site prophylactically.
At this point, the procedure was complete. All needle, sponge and instrument counts were correct. The patient tolerated the procedure well and was transferred to the recovery room in stable condition with gauze dressing in place secured with silk
tape.
DICTATED BY: Jitendra Panchal MD
[2023-07-14] MEDS: SINEMET 25-100 3 TABLET PO ×3 (09:11→16:11)
[2023-07-14] MEDS: MACROBID 100 MG PO ×2 (09:11→19:25)
[2023-07-14] MEDS: EXELON PATCH 13.3000000000000007 MG TRANSDERM (09:12)
[2023-07-14] MEDS: CARDIZEM CD 120 MG PO (09:20)
[2023-07-14] MEDS: NAMENDA 10 MG PO ×2 (09:20→19:26)
--- NOTE | 2023-07-14 09:45 | PTCARENOTE ---
Received pt from OR, drowsy, opens eyes to verbal stimuli. AOX3, denies any pain. A-PACED on the monitor in the 70's. No edema. +pedal pulses. Venous foot pumps placed on for DVT prevention. Lungs CTA. 3L NC 95%. Abdomen soft. Hypoactive bowels
sounds. Pt turned onto side. 4X4 over rectum c/d/i. B/L 18 AC INT's checked. Normosol running through L AC per PACU guidelines will discontinue after 1 hour. Pt denies any pain or nausea. Updated with plan of care. Bed placed in low position. Bed
alarm placed on for safety. Will continue to monitor pt. closely
[2023-07-14] MEDS: BETAPACE 80 MG PO ×2 (11:33→19:25)
--- NOTE | 2023-07-14 11:47 | PTCARENOTE ---
Pt downgraded to tele. Will continue to monitor pt. closely
[2023-07-14 12:15] LABS: Mean Corp Hgb Conc. 32.4 g/dL (33.0-37.0); Mean Corpuscular Hgb 31.2 pg (27.0-31.0); Mean Corpuscular Volume 96.1 fL (81.0-99.0); Mean Platelet Volume 10.7 fL (7.4-10.4); Platelet Count 106 10^3/uL (130-400); Red Blood Cell Count 3.85 10^6/uL (4.20-5.40); Red Cell Dist. Width 13.1 % (11.5-14.5); White Blood Cell Count 8.8 10^3/uL (4.8-10.8)
[2023-07-14 12:31] LABS: APTT 27.5 Sec (23.4-35.0)
--- NOTE | 2023-07-14 13:10 | W.PN.HOSP.TC ---
Today's Communication/Plan
-
monitor vitals
see plan
monitor hgb
transfer to tele
pt/ot
Assessment / Plan
Assessment / Plan
General: Well Developed, Well Nourished and No Apparent Distress
HEENT: NormoCephalic, Moist mucous membranes and Atraumatic
Respiratory: Clear
Cardiac: S1/S2 and Regular Rhythm; No Murmur or Rub
GI: Soft, Non Tender, Non Distended, Normal Bowel Sounds and Other; No Organomegaly
Musculoskeletal: No Clubbing, No Cyanosis and No Edema
Skin: No Rash
Neuro: AO x 3 and Nonfocal/grossly intact
Psych: Calm
Rectal bleeding
# History of hemorrhoid ligation a week ago
monitor hgb
-Colorectal following; s/p EUA, control of bleeding with electrocautery
-Monitor hemoglobin
# Essential hypertension
-Losartan continued
#History of A-fib off anticoagulation status post pacemaker
-Diltiazem ordered
#History of Parkinson disease
-Carbidopa-levodopa continued
#UTI
-nitrofurantoin continued
was started a day prior to coming for UTI
Thrombocytopenia
monitor
#Ambulatory dysfunction
PT/OT
Sick sinus syndrome status post pacemaker
Urinary incontinence status post prior Botox injections
History of Raynaud's
#hypothyroidism
-continue levothyroxine
# DVT prophylaxis
-SCD
# CODE STATUS
-Full code
Anticipated Discharge: Within 24 hours
Subjective/Interval History
-
Date of Service: July 14, 2023
denies pain
Objective Data
-
Labs:
Laboratory Results
07/14/23 07/14/23 07/14/23
01:22 03:47 12:02
WBC 7.4 8.8
Hgb 11.3 L 12.8 12.0
Hct 38.0 37.0
Plt Count 112 L 106 L
APTT 27.5
Sodium 136
Potassium 4.2
Chloride 102
Carbon Dioxide 29
BUN 24 H
Creatinine 0.6
Glucose 95
Calcium 8.8
Vital Signs:
Vital Signs
Temp Pulse Resp BP Pulse Ox
97.5 F 75 14 135/85 96
07/14/23 11:48 07/14/23 12:15 07/14/23 12:15 07/14/23 12:00 07/14/23 12:15
I&O
07/13/23 07/14/23 07/15/23
06:59 06:59 06:59
Output Total 200 / 200 300 / 300
Balance -200 / -200 -300 / -300
--- NOTE | 2023-07-14 13:28 | CM ---
CM following re: discharge planning.
Discussed in Rounds, reviewed pt's chart, met with pt.
Pt is an 87 year old female, admitted with primary dx of Rectal bleeding. EUA, control of bleeding with electrocautery, bilateral pudendal nerve block procedure performed this morning.
Pt resides alone with a 24/7 paid caregiver in 2SH with 1STE. Pt has stair glide to 2nd floor. Pt ambulates independently with a rollator
Caregiver provides all personal assistance and home maintenance.
[facility] known to [facility] and pt and caregiver requested a referral to [facility] be made at discharge.
PCP- Jostin De La O
Rx- [facility]
D/C plan: home with [facility] and 24/7 caregivers.
CM will follow with discharge plan updates as hospitalization progresses
--- NOTE | 2023-07-14 14:18 | W.PN.UPDATE ---
Update Note
Progress Note Update
I saw patient and spoke with RN. Patient had two non-bloody bowel movements since OR. Hemoglobin virtually unchanged (12 from 12.8). Okay for d/c from our perspective. Discussed with Dr. Jay.
[2023-07-14] MEDS: METAMUCIL, KONSYL 1 PACKET PO (14:26)
[2023-07-14] MEDS: ProAmatine 2.5 MG PO (17:41)
[2023-07-14] MEDS: CRESTOR 5 MG PO (19:25)
[2023-07-14] MEDS: COZAAR 50 MG PO (19:26)
[2023-07-14] MEDS: COLACE 100 MG PO (19:26)
[2023-07-14] MEDS: SINEMET 25-100 2 TABLET PO (19:26)
--- NOTE | 2023-07-14 19:49 | PTCARENOTE ---
report received. assessment as per work list. patient restless, confused. oriented to person and place. received oob to chair, ambulating in room with assist of live in healthcare translator. able to redirect patient into bed. pm care given. patient took
medications without issue. bed alarm activated. sliver lapper leaving for the night.
[2023-07-14] MEDS: NEURONTIN 200 MG PO (21:21)
[2023-07-15] VITALS (8 sets, daily range): BP systolic 113–200; BP diastolic 68–119; PULSE 77; BMI 22.9
[2023-07-15] MEDS: SYNTHROID 75 MCG PO (03:58)
[2023-07-15 04:26] LABS: Hematocrit 33.5 % (37.0-47.0); Hemoglobin 11.4 g/dL (12.0-16.0); Mean Corpuscular Hgb 31.3 pg (27.0-31.0); Mean Platelet Volume 10.7 fL (7.4-10.4); Platelet Count 115 10^3/uL (130-400); Red Blood Cell Count 3.64 10^6/uL (4.20-5.40); Red Cell Dist. Width 12.7 % (11.5-14.5); White Blood Cell Count 9.5 10^3/uL (4.8-10.8)
[2023-07-15 04:32] LABS: Blood Urea Nitrogen 26 mg/dl (7-17); Calcium 9.2 mg/dl (8.4-10.2); Carbon Dioxide 24 mmol/L (22-30); Chloride 105 mmol/L (98-107); Estimated Creatinine Clearance 49 ml/min; Glucose 116 mg/dl (70-99); Potassium 4.2 mmol/L (3.5-5.1); Sodium 135 mmol/L (135-145); eGFR > 60.00
--- NOTE | 2023-07-15 07:30 | W.PN.ANS.POP ---
Anesthesia Post Operative
- Anesthesia Post Op Note
Vital Signs Stable-See Nursing Note: Yes
Airway Patent: Yes
Adequate Pain Control: Yes
Change in Mental Status: No
Current Postoperative Nausea & Vomiting: No
Anesthesia Complications: No
General Anesthetic Recall: No
Unplanned Admission: No
Post Op Hydration Adequate: Yes
[2023-07-15] MEDS: METAMUCIL, KONSYL 1 PACKET PO (09:24)
[2023-07-15] MEDS: EXELON PATCH 13.3000000000000007 MG TRANSDERM (09:24)
[2023-07-15] MEDS: CARDIZEM CD 120 MG PO (09:25)
[2023-07-15] MEDS: MACROBID 100 MG PO (09:25)
[2023-07-15] MEDS: SINEMET 25-100 2 TABLET PO (09:26)
[2023-07-15] MEDS: NAMENDA 10 MG PO (09:26)
[2023-07-15] MEDS: BETAPACE 80 MG PO (09:26)
[2023-07-15] MEDS: ProAmatine PO ×2 (09:26→12:55)
[2023-07-15] MEDS: SINEMET 25-100 3 TABLET PO ×2 (09:27→12:55)
--- NOTE | 2023-07-15 10:17 | PTCARENOTE ---
Updated assessment, vital signs with follow up post cv/bp medications. Patient working well with PT/OT out of bed to chair. Patient Care support person return to bedside. Update history, home life and daily routines with team. Update with surgery
cleared to be discharged await hospitalist team to follow for discharge plan of cares. Patient presently oob to chair. Continue teaching, supportive cares, and follow up mobility needs.
--- NOTE | 2023-07-15 10:33 | PTCARENOTE ---
Update with Hospitalist team. Follow up possible discharge evaluation and plan of cares. Continue with ongoing teaching for patient and pet caregiver.
--- NOTE | 2023-07-15 10:42 | W.PN.CRS1 ---
Today's Communication / Plan
-
Okay for DC, follow-up in 2 to 4 weeks
Gelfoam packing should follow out with next BM, but okay to remove anytime now
Assessment/Plan
-
87-year-old female with PMH of dementia, Parkinson's disease, A-fib (not on any AC due to fall risk), HTN, HLD, SSS s/p PPM, urinary incontinence (s/p prior Botox injections with Dr. Armas), GERD, Raynaud's, internal hemorrhoid bleeding with
prolapse s/p RBL x 2 who presents to the ED via ambulance for copious bright red blood per rectum. On 07/05, I performed a third RBL to an LLQ internal hemorrhoid for her symptoms of hemorrhoidal bleeding and prolapse. No issues post-procedure until
8pm today when she started having copious BRBPR. Denies other associated symptoms. In the ED, saturated multiple diapers. Per my instruction, the ED placed a large Molina in the anal canal and inflated the balloon and placed it on tension until I
could get there. Her Hb was 13.6 and was repeated 30 minutes later and was 13.5; hemodynamically stable; patient was sleepy but easily arousable and responded appropriately to questions. Her baseline is A&O x1�2. Her last colonoscopy was in [address] Garrido, which was remarkable for multiple hyperplastic polyps, a tubular adenoma and diverticulosis.
POD 1 EUA, control of anal bleeding with fulguration and placement of Gelfoam packing
AFVSS
Hemoglobin trend overall stable 11.4 this morning
�Okay for regular diet
� Hold any AC for 48 hours postoperatively
�Gelfoam packing should fall out with next BM, but okay to remove at this point
� Okay for discharge from colorectal standpoint; follow-up in 2 to 4 weeks
� Appreciate hospitalist
Subjective Data
Subjective Data
Date of Service: July 15, 2023
No overnight events. Per nurse, no further rectal bleeding. Had 2 brown BMs yesterday.
Objective Data
-
Vital Signs
Temp Pulse Resp BP Pulse Ox
98.4 F 78 20 162/96 98
07/15/23 10:09 07/15/23 10:26 07/15/23 10:10 07/15/23 10:26 07/15/23 10:13
Intake & Output
07/14/23 07/15/23 07/16/23
06:59 06:59 06:59
Intake Total 1200 / 1200 240 / 240
Output Total 200 / 200 300 / 300
Balance -200 / -200 900 / 900 240 / 240
Intake:
Oral fluids 1200 / 1200 240 / 240
Output:
Urine, Voided 200 / 200 300 / 300
Other:
Number of approximated MODERATE 1 1
amounts of urine
Number of approximated LARGE 4
amounts of urine
How many times incontinent 1
SMALL amount urine
How many times incontinent 1
MODERATE amount urine
How many times incontinent 1 1
SATURATED amount urine
Lab Results
07/15/23 03:44
07/15/23 03:44
Physical Exam
-
General: No Acute Distress, AOx3 and Other (ANO x 1)
HEENT: Grossly Normal
Abdomen: Soft, Non Distended, Non Tender, No Guarding and No Rebound
Skin: Warm and Dry
--- NOTE | 2023-07-15 12:03 | W.PN.HOSP.TC ---
Today's Communication/Plan
-
Monitor vitals
see plan
Called daughter, left voicemail
Will discharge today with colorectal follow-up outpatient
Monitor hemoglobin
time of discharge 36 minutes
Assessment / Plan
Assessment / Plan
General: Well Developed, Well Nourished and No Apparent Distress
HEENT: NormoCephalic, Moist mucous membranes and Atraumatic
Respiratory: Clear
Cardiac: S1/S2 and Regular Rhythm; No Murmur or Rub
GI: Soft, Non Tender, Non Distended, Normal Bowel Sounds and Other
Musculoskeletal: No Clubbing, No Cyanosis and No Edema
Skin: No Rash
Neuro: AO x 3 and Nonfocal/grossly intact
Psych: Calm
Rectal bleeding
# History of hemorrhoid ligation a week ago
monitor hgb
-Colorectal following; s/p EUA, control of bleeding with electrocautery
-Monitor hemoglobin
ok to dc from CRS standpoint
# Essential hypertension
-Losartan continued
#History of A-fib off anticoagulation status post pacemaker
-Diltiazem ordered
#History of Parkinson disease
-Carbidopa-levodopa continued
#UTI
-nitrofurantoin continued
was started a day prior to coming for UTI
Thrombocytopenia
monitor
#Ambulatory dysfunction
PT/OT
Sick sinus syndrome status post pacemaker
Urinary incontinence status post prior Botox injections
History of Raynaud's
#hypothyroidism
-continue levothyroxine
# DVT prophylaxis
-SCD
# CODE STATUS
-Full code
pt/ot ok for home health. patient has 14/09 caregiver
Anticipated Discharge: Today
Subjective/Interval History
-
Date of Service: July 15, 2023
Denies pain
Objective Data
-
Labs:
Laboratory Results
07/15/23
03:44
WBC 9.5
Hgb 11.4 L
Hct 33.5 L
Plt Count 115 L
Sodium 135
Potassium 4.2
Chloride 105
Carbon Dioxide 24
BUN 26 H
Creatinine 0.7
Glucose 116 H
Calcium 9.2
Vital Signs:
Vital Signs
Temp Pulse Resp BP Pulse Ox
98.4 F 75 20 113/68 98
07/15/23 10:09 07/15/23 11:20 07/15/23 10:10 07/15/23 11:20 07/15/23 10:13
I&O
07/14/23 07/15/23 07/16/23
06:59 06:59 06:59
Intake Total 1200 / 1200 240 / 240
Output Total 200 / 200 300 / 300
Balance -200 / -200 900 / 900 240 / 240
--- NOTE | 2023-07-15 12:12 | W.DCSUMMARY ---
Discharge Summary
Discharge Data
Date of Admission: 07/13/23
Date of Discharge: 07/15/23
-
Pending Results: No
Hospital Course
87-year-old female with past medical history of internal hemorrhoids with recent hemorrhoid ligation, A-fib not on anticoagulation, pacemaker, essential hypertension, recent UTI, ambulatory dysfunction, sick sinus syndrome, Raynaud's,
hypothyroidism, Parkinson's, urinary incontinence came to the hospital with rectal bleeding. Patient was seen by colorectal surgery for hospitalization. Patient bleeding appeared to be coming from the site of recent ligation she had prior to
admission. Patient underwent EUA with control of bleeding with electrocautery by colorectal surgery. Patient was initially monitored in ICU per colorectal surgery recommendation given her bleeding. However once her bleeding stopped she was then
transferred to the floors. Once patient symptoms were improving and her hemoglobin was stable she was then discharged home with instructions to follow-up closely with all her physicians including colorectal surgery outpatient.
Discharge Plan
-
Patient Disposition: Home (Routine Discharge)
Discharge Diagnosis/Procedures: Rectal bleeding status post control of bleeding with electrocautery, bilateral pudendal nerve block
Diet: As tolerated
Activity: As tolerated
Driving Restrictions: As prior to admission
Bathing Restrictions: None
Referrals:
Jitendra Panchal MD [Active] - in one week
UNKNOWN - PT NOT,INTERVIEWE [Family Provider] - in less than 1 week
Prescriptions:
New
nitrofurantoin monohyd/m-cryst 100 mg Capsule
100 mg PO BID Qty: 0 0RF
Continued
rosuvastatin 5 MG tablet
5 mg PO DAILY@1999
rivastigmine 1 EACH patch 24 hour
13.3 mg transdermal DAILY
Patient Comments:
05/04/22 patient has patch on right back shoulder
memantine 10 MG tablet
10 mg PO BID
losartan 50 MG tablet
50 mg PO DAILY@1999
cholecalciferol (vitamin D3) 1,000 UNITS tablet
2,000 units PO DAILY
Rx Instructions:
Add two extra doses per week
levothyroxine [Synthroid] 75 mcg Tablet
75 mcg PO DAILY@0700
diltiazem HCl 120 MG capsule,extended release 24hr
120 mg PO DAILY
carbidopa-levodopa 25-100 mg tablet
2 tab PO DAILY@1999
carbidopa-levodopa 25-100 mg tablet
3 tab PO DAILY@0800,1200,1600
sennosides 8.6 mg Tablet
8.6 mg PO DAILY PRN (Reason: CONSTIPATION)
acetaminophen 500 mg Tablet
500 mg PO Q6H PRN (Reason: mild pain)
fluticasone propionate 50 mcg/actuation [place],Suspension
1 spray INTRANASAL PRN PRN (Reason: ALLERGY)
psyllium Packet
1 packet PO DAILY
docusate sodium 100 mg Capsule
100 mg PO DAILY@1999
melatonin 5 mg Tablet
5 - 10 mg PO HS PRN (Reason: sleep)
Crancaps
1 cap PO DAILY
Thc Gummies
1 gummy PO HS PRN (Reason: sleep)
sotalol 80 MG tablet
80 mg PO BID
midodrine 2.5 mg Tablet
2.5 mg PO TID
gabapentin 200 mg
200 mg PO HS
Discharge Orders:
Discharge Patient (As Directed); Ordered 07/15/23
Ordered By: Rosalio Jay
Discharge Date and Time
Discharge Date/Time: 07/15/23 14:03
Print Language: AMHARIC
--- NOTE | 2023-07-15 12:42 | PTCARENOTE ---
Staff at bedside reviewing discharge plan of cares. Patient ambulate hallway with staff and caregiver. Updated post plan of cares, line dc and discharge as ordered.
--- NOTE | 2023-07-15 13:55 | CM ---
CM following re:discharge planning.
Discussed in rounds,reviewed pt's chart, met with pt and pt's caregiver at bedside.
Discharge order noted. Both pt and her caregiver are aware, expressed their agreement with discharge. IMM reviewed, placed on chart, pt has a copy.
PT and OT evaluations noted - home PT recommended. [facility]
A referral to [facility] made.
Please fax discharge instructions to [facility] at [phone]
D/C plan: home with [facility] and 14/09 caregiver services. caregiver to transport.
No other discharge needs identified.
--- NOTE | 2023-07-15 14:01 | PTCARENOTE ---
Update PT/OT plan of cares, update with hospitalist and case management. Continue follow up. Discharge.
== END 2023-07-15 14:03 | disposition home health service (06) | DRG 357 ==
LOC: ICU 23:20
PROVIDERS: Nurse Practitioner Family; Registered Nurse; ADMITTING PHYSICIAN Internal Medicine; ATTENDING PHYSICIAN Internal Medicine; CONSULT PHYSICIAN Surgery; EMERGENCY PHYSICIAN Student in an Organized Health Care Education/Training Program; OTHER PHYSICIAN Internal Medicine
PROC: 3E0T3BZ Introduction of Anesthetic Agent into Peripheral Nerves and Plexi, Percutaneous Approach (ICD-10-PCS; 2023-07-14)
PROC: 0W3P0ZZ Control Bleeding in Gastrointestinal Tract, Open Approach (ICD-10-PCS; 2023-07-14)
DX: K62.5 Hemorrhage of anus and rectum (principal); D62 Acute posthemorrhagic anemia; N39.0 Urinary tract infection, site not specified; I10 Essential (primary) hypertension; F02.80 Dementia in other diseases classified elsewhere, unspecified severity, without behavioral disturbance, psychotic disturbance, mood disturbance, and anxiety; G20.A1 Parkinson's disease without dyskinesia, without mention of fluctuations; E03.9 Hypothyroidism, unspecified; D69.6 Thrombocytopenia, unspecified; I48.91 Unspecified atrial fibrillation; I73.00 Raynaud's syndrome without gangrene; K21.9 Gastro-esophageal reflux disease without esophagitis; K64.8 Other hemorrhoids; K59.00 Constipation, unspecified
CPT/HCPCS: 71045; 74174; 80048; 80053; 83735; 84100; 85018; 85027; 85610; 85730; 86850; 86900; 86901; 86920; 93005; 97162; 97167; 97530; 99285; Q9967

== ENCOUNTER 2023-07-30 15:54 | Emergency (ER) | payer MEDICARE, BC, SELFPAY ==
[2023-07-30 16:06] VITALS: BP 120/70
[2023-07-30] MEDS: NSS 500 IV (17:49)
[2023-07-30 18:04] LABS: % Basophils 0.4 % (0-2); % Eosinophils 1.6 % (0-6); % Immature Granulocytes 0.8 % (0-0.5); % Lymphocytes 9.3 % (20.5-51.1); % Monocytes 10.7 % (1.7-9.3); % Neutrophils 77.2 % (42.2-75.2); Absolute Eosinophils 0.2 10^3/uL (0-0.7); Absolute Immature Granulocytes 0.1 10^3/uL (0-0.05); Absolute Lymphocytes 0.9 10^3/uL (1.2-3.4); Absolute Neutrophils 7.2 10^3/uL (1.4-6.5); Hematocrit 33.4 % (37.0-47.0); Hemoglobin 11.5 g/dL (12.0-16.0); Mean Corp Hgb Conc. 34.4 g/dL (33.0-37.0); Mean Corpuscular Hgb 31.6 pg (27.0-31.0); Mean Corpuscular Volume 91.8 fL (81.0-99.0); Mean Platelet Volume 9.7 fL (7.4-10.4); Nucleated Red Blood Cells % 0 %; Platelet Count 142 10^3/uL (130-400); Red Blood Cell Count 3.64 10^6/uL (4.20-5.40); Red Cell Dist. Width 13.3 % (11.5-14.5); White Blood Cell Count 9.3 10^3/uL (4.8-10.8)
[2023-07-30 18:07] LABS: ALT (SGPT) < 10 U/L (0-35); AST (SGOT) 25 U/L (14-36); Albumin 3.6 g/dl (3.5-5.0); Alkaline Phosphatase 72 U/L (38-126); Blood Urea Nitrogen 21 mg/dl (7-17); Calcium 8.8 mg/dl (8.4-10.2); Carbon Dioxide 28 mmol/L (22-30); Chloride 103 mmol/L (98-107); Glucose 102 mg/dl (70-99); Potassium 3.8 mmol/L (3.5-5.1); Sodium 137 mmol/L (135-145); Total Bilirubin 0.6 mg/dl (0.2-1.3); Total Protein 6.3 g/dl (6.3-8.2); eGFR > 60.00
--- NOTE | 2023-07-30 18:17 | ED.MUSCINJ ---
HPI-Injury
<Laurel Subramanian OPENSTACK CL[employer]D CONSULTING ARCHITECT - Last Filed: 07/31/23 11:19>
General
Chief Complaint: Fall
Source: patient and healthcare educator ('Jennifer' who lives with her 14/09)
Exam Limitations: none
Time Seen by Provider: 07/30/23 17:26
Nursing documentation reviewed up to this point in time: agreed with
Travel History
Have you had any contact with someone who has COVID-19?: No
Do you have any symptoms of coronavirus? Fever > 100 degrees, chills, cough, shortness of breath, sore throat, loss of taste or smell, muscle aches, or headache?: No
History of Present Illness-Injury
Initial Injury comments:
87 yo female w h/o dementia, A fib NOT anticoagulated present with healthcare educator 'Jennifer' who is with her '14/09.' Jennifer states pt insists on pulling weeds in her yard, goes outside (with Jennifer with her) walks with her walker, bends at waist to weed,
frequently falls whether in her house or in her yard, due to bending at waist to weed or pick things up, loses her balance and falls. This past week has had at least 7 falls. Jennifer states family is aware and pt is permitted to do as she pleases.
Yesterday afternoon fell pulling weeds, bumped left lateral eyebrow and upper cheek, now with mild bruising. Jennifer was with her, helped her up and pt continued to weed. Last evening while getting into [facility], pt complained of pain in left
shoulder/upper arm and caregiver noted swelling dorsum of left foot.. Today Teca noticed bruising of top of left foot and toes.
Pt denies headache, neck pain. Does admit left arm sore from upper arm to shoulder.
Past History
<Laurel Subramanian OPENSTACK [employer]D CONSULTING ARCHITECT - Last Filed: 07/31/23 11:19>
Past History
ED Past Medical History: Arrthythmia (Atrial fib), GERD, HTN, Hypercholesterolemia, Hypothyroidism, Other (Parkinson's Disease, Overactive bladder, vitamin D deficiency, Raynaud's, TMJ, vasovagal syncope, xerophthalmia) and Other (Thrombocytopenia
resolved 2020, urinary tract infections)
ED Past Surgical History: Cardiac (Pacemaker), Gynecological (Hysterectomy), Orthopedic (Pelvic fracture 2020), Tonsilectomy and Other (Cataract extraction, bunionectomy, bilateral eyebrow lifts)
Patient has exhibited threatening behavior?: No
PSI?: No
Social History
Tobacco: Non-smoker
Alcohol: None
Drug: None
Personal:
Living: alone (Has 14/09 caregiver)
Employment: Retired
Family History
Family History: Other (review and non-contributory)
Review of Systems
<Laurel Subramanian, OPENST[employer]OUD CONSULTING ARCHITECT - Last Filed: 07/31/23 11:19>
Review of Systems
Allergies reviewed?: Yes
All Other Systems: ROS reviewed and negative except as documented in HPI and ROS
Constitutional: Denies fever or fatigue
Respiratory: Denies trouble breathing
Cardiac: Denies chest pain or syncope
ABD/GI: Denies abdominal pain, nausea, vomiting or diarrhea
: Denies dysuria or difficulty voiding
Musculoskeletal: Reports other (Pain left shoulder area, pain left foot); Denies neck pain or back pain
Skin: Reports other (Bruising and swelling top of left foot.)
Neurological: Denies dizzy, headache, weakness or numbness
Phy Exam
<Luarel Subramanian, OPENSTACK CLOUD CONSULTING ARCHITECT - Last Filed: 07/31/23 11:19>
Physical Exam
Physical Exam:
GENERAL: No acute distress. A&Ox3.
CONSTITUTIONAL: Afebrile.
EYES: PERRL, conjunctivae normal, EOMs intact
Neck: Supple
ENMT: dry mucus membranes, Pharynx nl
RESPIRATORY: Regular respirations, nonlabored, lungs clear.
CARDIOVASCULAR: Regular rate and rhythm, no murmurs, no rubs.
GI: Soft, nontender, normal BS
MUSCULOSKELETAL: Limited ROM left arm, tender about left shoulder, mild swelling. Rest of LUE is nontender, n/v intact. L foot with mild swelling, ecchymosis dorsum of foot and toes, mild tenderness to palpation. Moves with ease. Well perfused.
SKIN: Warm, dry, pink
PSYCH: Normal mood and affect. Well kept, interactive and appropriate
NEUROLOGIC: Awake, alert and oriented. No focal neurological deficits
Injury Course
<Laurel Subramanian, OPENSTACK CLOUD CONSULTING ARCHITECT - Last Filed: 07/31/23 11:19>
Orders/Labs/Results
Orders:
Orders
07/30/23 16:10
CT Head W/o Iv Contrast Urgent
Comment:
Reason For Exam: fall
07/30/23 17:27
0.9% Sodium Chloride 500 ml [Nss] 500 ml IV BOLUS
07/30/23 17:45
Complete Blood Count/With Diff Urgent
Comprehensive Metabolic Panel Urgent
07/30/23 18:15
Foot, Left 3 View [CR Foot - Left Min 3 Views] Urgent
Comment:
Reason For Exam: swelling, brusing dorsum after fall
Shoulder, Left, Trauma CR [CR Shoulder, Trauma - Left] Urgent
Comment:
Reason For Exam: pain after fall
07/30/23 20:02
Urinalysis Reflex To Culture Urgent
Date Specimen was Collected: 07/30/23
Time Specimen was Collected: 20:00
Urine Microscopic Reflex Cult Urgent
Urine Culture Urgent
ALEX Source: U
Specimen Description:
Date Specimen was Collected: 07/30/23
Time Specimen was Collected: 20:00
Abnormal Lab Results
07/30/23 07/30/23
17:45 20:02
RBC 3.64 L 10^6/uL
(4.20-5.40)
Hgb 11.5 L g/dL
(12.0-16.0)
Hct 33.4 L %
(37.0-47.0)
MCH 31.6 H pg
(27.0-31.0)
Abs Immat Gran (auto) 0.1 H 10^3/uL
(0-0.05)
Absolute Neuts (auto) 7.2 H 10^3/uL
(1.4-6.5)
Absolute Lymphs (auto) 0.9 L 10^3/uL
(1.2-3.4)
Absolute Monos (auto) 1.0 H 10^3/uL
(0.1-0.6)
Immature Gran % 0.8 H %
(0-0.5)
Neutrophils % 77.2 H %
(42.2-75.2)
Lymphocytes % 9.3 L %
(20.5-51.1)
Monocytes % 10.7 H %
(1.7-9.3)
BUN 21 H mg/dl
(7-17)
Glucose 102 H mg/dl
(70-99)
Ur Occult Blood Reflex Trace A
(Negative)
Urine Nitrite (Reflex) Positive A
(Negative)
Leukocyte Esterase Rfl 1+ A
(Negative)
Urine Bacteria (Reflex) Many A
(Negative)
07/30/23 17:45
07/30/23 17:45
Carloslt;Taylor Thompson PA-C - Last Filed: 08/02/23 09:09>
Orders/Labs/Results
Orders:
Orders
07/30/23 16:10
CT Head W/o Iv Contrast Urgent
Comment:
Reason For Exam: fall
07/30/23 17:27
0.9% Sodium Chloride 500 ml [Nss] 500 ml IV BOLUS
07/30/23 17:45
Complete Blood Count/With Diff Urgent
Comprehensive Metabolic Panel Urgent
07/30/23 18:15
Foot, Left 3 View [CR Foot - Left Min 3 Views] Urgent
Comment:
Reason For Exam: swelling, brusing dorsum after fall
Shoulder, Left, Trauma CR [CR Shoulder, Trauma - Left] Urgent
Comment:
Reason For Exam: pain after fall
07/30/23 20:02
Urinalysis Reflex To Culture Urgent
Date Specimen was Collected: 07/30/23
Time Specimen was Collected: 20:00
Urine Microscopic Reflex Cult Urgent
Urine Culture Urgent
ALEX Source: U
Specimen Description:
Date Specimen was Collected: 07/30/23
Time Specimen was Collected: 20:00
Abnormal Lab Results
07/30/23 07/30/23
17:45 20:02
RBC 3.64 L 10^6/uL
(4.20-5.40)
Hgb 11.5 L g/dL
(12.0-16.0)
Hct 33.4 L %
(37.0-47.0)
MCH 31.6 H pg
(27.0-31.0)
Abs Immat Gran (auto) 0.1 H 10^3/uL
(0-0.05)
Absolute Neuts (auto) 7.2 H 10^3/uL
(1.4-6.5)
Absolute Lymphs (auto) 0.9 L 10^3/uL
(1.2-3.4)
Absolute Monos (auto) 1.0 H 10^3/uL
(0.1-0.6)
Immature Gran % 0.8 H %
(0-0.5)
Neutrophils % 77.2 H %
(42.2-75.2)
Lymphocytes % 9.3 L %
(20.5-51.1)
Monocytes % 10.7 H %
(1.7-9.3)
BUN 21 H mg/dl
(7-17)
Glucose 102 H mg/dl
(70-99)
Ur Occult Blood Reflex Trace A
(Negative)
Urine Nitrite (Reflex) Positive A
(Negative)
Leukocyte Esterase Rfl 1+ A
(Negative)
Urine Bacteria (Reflex) Many A
(Negative)
07/30/23 17:45
07/30/23 17:45
<Laurel Subramanian, OPENSTACK CLOUD CONSULTING ARCHITECT - Last Filed: 07/31/23 11:19>
MDM/Problems Addressed
Differential Diagnosis Includes:
fracture vs soft tissue injury shoulder, foot
Contusion, fx, bleed head
MDM/Problems Addressed:
87 yo female w h/o dementia, A fib NOT anticoagulated present with healthcare educator 'Jennifer' who is with her '14/09.' Jennifer states pt insists on pulling weeds in her yard, goes outside (with eJnnifer with her) walks with her walker, bends at waist to weed,
frequently falls whether in her house or in her yard, due to bending at waist to weed or pick things up, loses her balance and falls. This past week has had at least 7 falls. Jennifer states family is aware and pt is permitted to do as she pleases.
Yesterday afternoon fell pulling weeds, bumped left lateral eyebrow and upper cheek, now with mild bruising. Jennifer was with her, helped her up and pt continued to weed. Last evening while getting into [facility], pt complained of pain in left
shoulder/upper arm and caregiver noted swelling dorsum of left foot.. Today Teca noticed bruising of top of left foot and toes.
Pt denies headache, neck pain. Does admit left arm sore from upper arm to shoulder.
Head CT neg
CBC, CMP with no clinically significant abnormality. Mild dehydration with BUN 21, IVF's ordered
6:50 PM x-ray left shoulder and left foot read by this examiner initially: No acute findings.
Patient will be discharged with a sling that her caregiver placed on her due to her complaint of pain. There may be soft tissue injury, rotator cuff injury to the shoulder, recommended orthopedic follow-up.
<Laurel Subramanian NP - Last Filed: 07/31/23 11:19>
*Critical Care Note
Total Time (30-74mins, 75-104mins- exclusive of procedures): Not Applicable
<Taylor Thompson PA-C - Last Filed: 08/02/23 09:09>
Update Note
Update Note:
08/02/2023 0909 AM I spoke with the patient's caregiver regarding the preliminary E. coli culture. Patient does get frequent UTIs and completed antibiotics about 3 weeks ago but the caregiver does not remember which antibiotic. She does continue to
be off balance but has not had a fever or any change in mental status. She has had negative cultures previously, given the E. coli preliminary we will cover her with cefdinir although I did give the caregiver the option of calling her family doctor
and having the urine repeated but given her frequent falls this may be the cause. Return precautions
ED Attending Note
<Laurel Subramanian OPENSTACK CLOUD CONSULTING ARCHITECT - Last Filed: 07/31/23 11:19>
-
Portions of this chart may have been created with voice recognition software.� Occasional wrong word or��sound alike� substitutions may have occurred due to the inherent limitations of voice recognition software.
Discharge Plan
Departure
Patient Disposition: Home (Routine Discharge)
Date of Disposition: 07/30/23
Time of Disposition: 18:49
Patient with high blood pressure during this ER visit?: No
Condition: Good
Discharge Problem:
Fall from slip, trip, or stumble, Soft tissue injury of left shoulder, Sprain of left foot
Instructions: Preventing falls in adults, Shoulder Sprain ED, Foot sprain
Prescriptions:
New
cefdinir 300 mg capsule
300 mg PO BID Qty: 14 0RF
No Action
rosuvastatin 5 MG tablet
5 mg PO DAILY@1999
rivastigmine 1 EACH patch 24 hour
13.3 mg transdermal DAILY
Patient Comments:
05/04/22 patient has patch on right back shoulder
memantine 10 MG tablet
10 mg PO BID
losartan 50 MG tablet
50 mg PO DAILY@1999
cholecalciferol (vitamin D3) 1,000 UNITS tablet
2,000 units PO DAILY
Rx Instructions:
Add two extra doses per week
levothyroxine [Synthroid] 75 mcg Tablet
75 mcg PO DAILY@0700
diltiazem HCl 120 MG capsule,extended release 24hr
120 mg PO DAILY
carbidopa-levodopa 25-100 mg tablet
2 tab PO DAILY@1999
carbidopa-levodopa 25-100 mg tablet
3 tab PO DAILY@0800,1200,1600
sennosides 8.6 mg Tablet
8.6 mg PO DAILY PRN (Reason: CONSTIPATION)
acetaminophen 500 mg Tablet
500 mg PO Q6H PRN (Reason: mild pain)
fluticasone propionate 50 mcg/actuation [place],Suspension
1 spray INTRANASAL PRN PRN (Reason: ALLERGY)
psyllium Packet
1 packet PO DAILY
docusate sodium 100 mg Capsule
100 mg PO DAILY@1999
melatonin 5 mg Tablet
5 - 10 mg PO HS PRN (Reason: sleep)
Crancaps
1 cap PO DAILY
Thc Gummies
1 gummy PO HS PRN (Reason: sleep)
sotalol 80 MG tablet
80 mg PO BID
midodrine 2.5 mg Tablet
2.5 mg PO TID
gabapentin 200 mg
200 mg PO HS
nitrofurantoin monohyd/m-cryst 100 mg Capsule
100 mg PO BID Qty: 0 0RF
Referrals:
Jostin De La O Jr., DO [Family Provider] -
Chris Melchor MD [Active] - As needed
Activity Restrictions/Additional Instructions:
As we discussed, Tylenol as needed for pain.
If the shoulder is not a lot better within the next week, or if it gets more painful, call and make appointment with the orthopedic doctor as you may have injured the rotator cuff or other soft tissues about the shoulder and you may need more
treatment
Avoid bending as it is the main reason for your falls.
Interventions
Interventions:
*Risk Screen - Suicide Last Done: 07/30/23 16:06
*General Assessment Last Done: 07/30/23 16:06
*Neglect/Abuse Screening Last Done: 07/30/23 16:06
ED- Fall Risk Assessment Last Done: 07/30/23 20:23
*Nursing Disposition Last Done: 07/30/23 20:23
ED-Musculoskeletal Assessment Last Done: 07/30/23 17:15
ED- Neurological Assessment Last Done: 07/30/23 17:15
ED-Skin Assessment Last Done: 07/30/23 17:15
Discharge Date and Time
Discharge Date/Time: 07/30/23 20:24
Print Language: SOUTH SUDANESE
[2023-07-30 20:32] LABS: Urine Albumin Negative (Neg - Trace); Urine Bilirubin Negative (Negative); Urine Character Clear (Clear); Urine Color Yellow; Urine Glucose Negative (Negative); Urine Ketone Negative (Negative); Urine Leukocyte 1+ (Negative); Urine Nitrite Positive (Negative); Urine Occult Blood Trace (Negative); Urine Urobilinogen Negative (Neg - 1+)
[2023-07-30 21:03] LABS: Urine Bacteria Many (Negative)
[2023-07-30 21:04] LABS: Urine Red Blood Cell 0-2 /HPF (0-2)
== END 2023-07-30 20:24 | disposition home or self-care (01) ==
LOC: EMR 15:54
PROVIDERS: Registered Nurse; EMERGENCY PHYSICIAN Emergency Medicine; FAMILY PHYSICIAN Family Medicine
DX: S49.92XA Unspecified injury of left shoulder and upper arm, initial encounter (principal); S93.602A Unspecified sprain of left foot, initial encounter; W01.0XXA Fall on same level from slipping, tripping and stumbling without subsequent striking against object, initial encounter; I48.91 Unspecified atrial fibrillation; F02.80 Dementia in other diseases classified elsewhere, unspecified severity, without behavioral disturbance, psychotic disturbance, mood disturbance, and anxiety
CPT/HCPCS: 99285; 96360; 70450; 73030; 73630; 80053; 81003; 81015; 85025; 87071; 87086; 87186

== ENCOUNTER → 2023-08-25 12:56 | Outpatient (REF) | payer MEDICARE, BC, SELFPAY ==
[2023-08-25 15:03] LABS: % Basophils 0.6 % (0-2); % Eosinophils 1.1 % (0-6); % Immature Granulocytes 0.9 % (0-0.5); % Monocytes 11.2 % (1.7-9.3); % Neutrophils 76.2 % (42.2-75.2); Absolute Eosinophils 0.1 10^3/uL (0-0.7); Absolute Immature Granulocytes 0.1 10^3/uL (0-0.05); Absolute Lymphocytes 0.7 10^3/uL (1.2-3.4); Absolute Monocytes 0.8 10^3/uL (0.1-0.6); Absolute Neutrophils 5.3 10^3/uL (1.4-6.5); Hematocrit 38.8 % (37.0-47.0); Hemoglobin 12.8 g/dL (12.0-16.0); Mean Corpuscular Hgb 30.1 pg (27.0-31.0); Mean Corpuscular Volume 91.3 fL (81.0-99.0); Nucleated Red Blood Cells % 0 %; Platelet Count 141 10^3/uL (130-400); Red Blood Cell Count 4.25 10^6/uL (4.20-5.40); Red Cell Dist. Width 12.8 % (11.5-14.5)
[2023-08-25 19:56] LABS: Urine Albumin Trace (Neg - Trace); Urine Bilirubin 1+ (Negative); Urine Character Clear (Clear); Urine Color Yellow; Urine Glucose Negative (Negative); Urine Ketone 1+ (Negative); Urine Leukocyte Trace (Negative); Urine Nitrite Negative (Negative); Urine Occult Blood Negative (Negative); Urine Urobilinogen Negative (Neg - 1+)
[2023-08-25 20:14] LABS: Urine Squamous Cell >30 /LPF (Few)
[2023-08-25 20:15] LABS: Urine Bacteria Few (Negative); Urine Calcium Oxalate Crystals Present; Urine Red Blood Cell 0-2 /HPF (0-2); Urine White Cell 0-2 /HPF (0-5)
== END ==
LOC: REG 12:56
PROVIDERS: ATTENDING PHYSICIAN Family Medicine
DX: F03.918 Unspecified dementia, unspecified severity, with other behavioral disturbance (principal); R41.3 Other amnesia; N39.41 Urge incontinence; N39.0 Urinary tract infection, site not specified
CPT/HCPCS: 36415; 81003; 81015; 85025; 87086

== ENCOUNTER → 2023-09-16 16:06 | Outpatient (REF) | payer MEDICARE, BC, SELFPAY ==
[2023-09-16 17:15] LABS: Urine Albumin Negative (Neg - Trace); Urine Bilirubin Negative (Negative); Urine Character Clear (Clear); Urine Color Yellow; Urine Glucose Negative (Negative); Urine Ketone 1+ (Negative); Urine Leukocyte Negative (Negative); Urine Nitrite Negative (Negative); Urine Occult Blood Negative (Negative); Urine Urobilinogen Negative (Neg - 1+); Urine pH 6.5 (5.0-9.0)
== END ==
LOC: REG 16:06
PROVIDERS: ATTENDING PHYSICIAN Internal Medicine Hospice and Palliative Medicine; FAMILY PHYSICIAN Family Medicine
DX: R44.3 Hallucinations, unspecified (principal)
CPT/HCPCS: 36415; 81003

== ENCOUNTER → 2023-10-06 13:07 | Outpatient (REF) | payer MEDICARE, BC, SELFPAY ==
[2023-10-06 15:17] LABS: Urine Albumin Trace (Neg - Trace); Urine Bilirubin Negative (Negative); Urine Character Very Cloudy (Clear); Urine Color Yellow; Urine Glucose Negative (Negative); Urine Ketone Trace (Negative); Urine Leukocyte 2+ (Negative); Urine Nitrite Negative (Negative); Urine Occult Blood 2+ (Negative); Urine Urobilinogen Negative (Neg - 1+)
[2023-10-06 15:29] LABS: Urine Squamous Cell 0-2 /LPF (Few)
[2023-10-06 15:30] LABS: Urine White Cell 80-90 /HPF (0-5)
[2023-10-06 15:31] LABS: Urine Bacteria Many (Negative)
== END ==
LOC: REG 13:07
PROVIDERS: ATTENDING PHYSICIAN Internal Medicine Hospice and Palliative Medicine; FAMILY PHYSICIAN Family Medicine
DX: N39.0 Urinary tract infection, site not specified (principal)
CPT/HCPCS: 81003; 81015; 87077; 87086; 87186

== ENCOUNTER → 2023-10-14 12:10 | Outpatient (REF) | payer MEDICARE, BC, SELFPAY ==
[2023-10-14 13:10] LABS: Urine Albumin Negative (Neg - Trace); Urine Bilirubin Negative (Negative); Urine Character Clear (Clear); Urine Color Yellow; Urine Glucose Negative (Negative); Urine Ketone Trace (Negative); Urine Leukocyte Negative (Negative); Urine Nitrite Negative (Negative); Urine Occult Blood Negative (Negative); Urine Specific Gravity 1.015 (<1.030); Urine Urobilinogen Negative (Neg - 1+); Urine pH 6.5 (5.0-9.0)
== END ==
LOC: REG 12:10
PROVIDERS: ATTENDING PHYSICIAN Internal Medicine Hospice and Palliative Medicine; FAMILY PHYSICIAN Family Medicine
DX: N39.0 Urinary tract infection, site not specified (principal)
CPT/HCPCS: 81003

== ENCOUNTER 2023-10-29 16:56 | Inpatient (IN) | payer MEDICARE, BC, SELFPAY ==
[2023-10-29] VITALS (22 sets, daily range): BP systolic 135–215; BP diastolic 85–119
--- NOTE | 2023-10-29 11:13 | ED.GENMED ---
History of Present Illness
<Demarcus Ramirez PA-C - Last Filed: 10/29/23 14:46>
General
Chief Complaint: Fainting/Passed Out
Source: patient and ambulance crew
Time Seen by Provider: 10/29/23 11:01
History of Present Illness
History of Present Illness:
88-year-old female with past medical history of dementia and Parkinson's, atrial fibrillation, hypertension, hyperlipidemia, status post pacemaker placement presenting to the emergency department with EMS for evaluation after suspected syncopal
event while on the toilet, found by aide who lives at home with the patient, per EMS when they went into the bathroom to evaluate the patient she was unresponsive on the toilet and felt as if she did not have pulses. Patient was taken off the
toilet and CPR was initiated and lasted for approximately 2 minutes. No medications were given. Patient awoke and has since been complaining of pain over her chest. Patient does not recall any of the events that led up to EMS being contacted.
She denies any recent illnesses, nausea, vomiting, bowel changes or urinary symptoms. Remainder of the history is somewhat limited. No current family or caretakers at the bedside. Patient reportedly has a Medtronic dual-chamber pacemaker.
Past History
<Demarcus Ramirez PA-C - Last Filed: 10/29/23 14:46>
Past History
ED Past Medical History: Arrthythmia (Atrial fib), GERD, HTN, Hypercholesterolemia, Hypothyroidism, Other (Parkinson's Disease, Overactive bladder, vitamin D deficiency, Raynaud's, TMJ, vasovagal syncope, xerophthalmia) and Other (Thrombocytopenia
resolved 2020, urinary tract infections)
ED Past Surgical History: Cardiac (Pacemaker), Gynecological (Hysterectomy), Orthopedic (Pelvic fracture 2020), Tonsilectomy and Other (Cataract extraction, bunionectomy, bilateral eyebrow lifts)
Patient has exhibited threatening behavior?: No
PSI?: No
Social History
Tobacco: Non-smoker
Alcohol: None
Drug: None
Personal:
Living: alone (Has 14/09 caregiver)
Employment: Retired
Family History
Family History: Other (review and non-contributory)
Review of Systems
<Demarcus Ramirez PA-C - Last Filed: 10/29/23 14:46>
Review of Systems
All Other Systems: ROS reviewed and negative except as documented in HPI and ROS
Phy Exam
<Demarcus Ramirez PA-C - Last Filed: 10/29/23 14:46>
Physical Exam
Physical Exam:
GENERAL: Alert , appears uncomfortable and intermittently moaning especially with movement
HEADL NCAT
EYE: pupils equal and reactive, 3mm bilateral, clear conjunctiva
NECK: Supple
ENT: mmm.
CARDIAC: Regular rate and rhythm .
LUNGS: Clear breath sounds bilaterally, no acute respiratory distress, no wheezes/rales/rhonchi, pacemaker to left anterior chest wall. moderate ttp over distal portion of sternum
ABDOMEN: Soft, without focal tenderness, no r/g, no cvat
NEUROLOGICAL: Alert and oriented x 3
SKIN: Warm and dry, skin intact.
MUSCULOSKELETAL: No edema, well perfused.
PSYCH: Normal and appropriate interaction.
Scores
<Demarcus Ramirez PA-C - Last Filed: 10/29/23 14:46>
Heart Failure Risk
Heart Failure Risk Score: Not Applicable
Heart Score for Chest Pain Patients
STEMI patient?: Not applicable
Withdrawal Assessment of Alcohol
Withdrawal Assessment Completed?: Not applicable
Course
<Demarcus Ramirez PA-C - Last Filed: 10/29/23 14:46>
Orders/Labs/Results
Orders:
Orders
10/29/23 10:42
Electrocardiogram (*1) Urgent
Reason for Study: Syncope
10/29/23 10:43
EKG- Treatment ONCE
10/29/23 10:59
Complete Blood Count/With Diff Urgent
10/29/23 11:10
Add On- LAB Urgent
Tests Added?: magnesium
Morphine Sulfate 2 mg IV NOW STA
CR Chest - 2 Views Urgent
Comment:
Reason For Exam: syncope, ? pulseless, received CPR, pain
10/29/23 11:53
Comprehensive Metabolic Panel Urgent
Magnesium Urgent
Comment: MAG ADDED ON BY FLOOR 12:50PM 10-28-23
Troponin I Urgent
10/29/23 12:53
Add On- LAB Urgent
Comments:: in lab
Tests Added?: magnesium
10/29/23 13:58
Diltiazem Extended Release [Cardizem Cd] 120 mg PO NOW STA
Abnormal Lab Results
10/29/23 10/29/23
10:59 11:53
Plt Count 122 L 10^3/uL
(130-400)
MPV 11.4 H fL
(7.4-10.4)
Abs Immat Gran (auto) 0.1 H 10^3/uL
(0-0.05)
Absolute Neuts (auto) 6.7 H 10^3/uL
(1.4-6.5)
Absolute Lymphs (auto) 0.8 L 10^3/uL
(1.2-3.4)
Absolute Monos (auto) 0.8 H 10^3/uL
(0.1-0.6)
Immature Gran % 1.3 H %
(0-0.5)
Neutrophils % 78.2 H %
(42.2-75.2)
Lymphocytes % 9.2 L %
(20.5-51.1)
Monocytes % 9.5 H %
(1.7-9.3)
BUN 19 H mg/dl
(7-17)
10/29/23 10:59
10/29/23 11:53
Vital Signs
Initial and Last Documented VS:
Initial Vital Signs
Pulse Resp
87 17
10/29/23 10:43 10/29/23 10:43
Last Documented Vital Signs
Temp Pulse Resp BP Pulse Ox
97.3 F 75 14 202/116 100
10/29/23 10:44 10/29/23 14:30 10/29/23 14:30 10/29/23 14:30 10/29/23 14:15
<Tanner Grajeda, DO - Last Filed: 10/29/23 13:41>
Orders/Labs/Results
Orders:
Orders
10/29/23 10:42
Electrocardiogram (*1) Urgent
Reason for Study: Syncope
10/29/23 10:43
EKG- Treatment ONCE
10/29/23 10:59
Complete Blood Count/With Diff Urgent
10/29/23 11:10
Add On- LAB Urgent
Tests Added?: magnesium
Morphine Sulfate 2 mg IV NOW STA
CR Chest - 2 Views Urgent
Comment:
Reason For Exam: syncope, ? pulseless, received CPR, pain
10/29/23 11:53
Comprehensive Metabolic Panel Urgent
Magnesium Urgent
Comment: MAG ADDED ON BY FLOOR 12:50PM 10-28-23
Troponin I Urgent
10/29/23 12:53
Add On- LAB Urgent
Comments:: in lab
Tests Added?: magnesium
10/29/23 13:58
Diltiazem Extended Release [Cardizem Cd] 120 mg PO NOW STA
Abnormal Lab Results
10/29/23 10/29/23
10:59 11:53
Plt Count 122 L 10^3/uL
(130-400)
MPV 11.4 H fL
(7.4-10.4)
Abs Immat Gran (auto) 0.1 H 10^3/uL
(0-0.05)
Absolute Neuts (auto) 6.7 H 10^3/uL
(1.4-6.5)
Absolute Lymphs (auto) 0.8 L 10^3/uL
(1.2-3.4)
Absolute Monos (auto) 0.8 H 10^3/uL
(0.1-0.6)
Immature Gran % 1.3 H %
(0-0.5)
Neutrophils % 78.2 H %
(42.2-75.2)
Lymphocytes % 9.2 L %
(20.5-51.1)
Monocytes % 9.5 H %
(1.7-9.3)
BUN 19 H mg/dl
(7-17)
10/29/23 10:59
10/29/23 11:53
Vital Signs
Initial and Last Documented VS:
Initial Vital Signs
Pulse Resp
87 17
10/29/23 10:43 10/29/23 10:43
Last Documented Vital Signs
Temp Pulse Resp BP Pulse Ox
97.3 F 75 14 202/116 100
10/29/23 10:44 10/29/23 14:30 10/29/23 14:30 10/29/23 14:30 10/29/23 14:15
<Demarcus Ramirez PA-C - Last Filed: 10/29/23 14:46>
MDM/Problems Addressed
Differential Diagnosis Includes:
vasovagal event, cardiac arrest/cardiac dysrhythmia, electrolyte derangement, dehydration, anemia, rib fracture vs sternal fracture from CPR
MDM/Problems Addressed:
88 year old female presenting to ED with EMS after being found in bathroom unresponsive and per EMS was pulseless. CPR initiated and lasted 1 round of ~ 2 minutes without medicine administration. Patient now AAOx3 and only concern is sternal/rib
pain. Will interrogate pacemaker to evaluate for any arrhythmia/dysrythmia. EKG and labs ordered. CXR due to chest pain s/p CPR. morphine ordered for pain control.
Chronic conditions affecting care: Neurological disorder (dementia)
Acute Exacerbation and/or Progression of Chronic Illness: Arrhythmia
<Demarcus Ramirez PA-C - Last Filed: 10/29/23 14:46>
*Radiology
Radiology exam reviewed: preliminary read by ED provider (normal cxr)
*Pulse Oximetry
Patient hypoxic: no
*Critical Care Note
Total Time (30-74mins, 75-104mins- exclusive of procedures): Not Applicable
<Demarcus Ramirez PA-C - Last Filed: 10/29/23 14:46>
Comment
Comment:
Pacemaker interrogation reveals frequent AT episodes, moreso over the last week. No other abnormalities. No VT/VF episodes
Patient Management
Discussion with other providers: Hospitalist
Escalation/DeEscalation of care consider admission/obs:
On reevaluation patient noted to be persistently hypertensive. An additional dose of her 120 mg p.o. diltiazem was ordered. Patient notes somewhat improved discomfort across her chest but that the pain worsens with any attempted movement. Given
her age combined with presenting symptoms I do feel it be in best interest to be monitored overnight. Cardiology can be consulted as needed. Hospitalist team is aware and accepts for continued evaluation and treatment.
ED Attending Note
<Demarcus Ramirez PA-C - Last Filed: 10/29/23 14:46>
-
Portions of this chart may have been created with voice recognition software.� Occasional wrong word or��sound alike� substitutions may have occurred due to the inherent limitations of voice recognition software.
<Tanner Grajeda DO - Last Filed: 10/29/23 13:41>
ED Attending Note
Patient seen and examined by attending physician: Yes
I performed the substantive portion of visit, reviewed & personally made and approve the management plan that is documented in note by myself or VIVIANA.: Yes
ED Attending Note:
88-year-old female syncopal event permanent pacemaker CPR here is confused which is not uncommon for her per the caregiver, device interrogated will try to confirm goals of therapy
Discharge Plan
Departure
Patient Disposition: Admit
Date of Disposition: 10/29/23
Time of Disposition: 14:01
Presentation/result/management discussed w/ accepting MD/DO: Hospitalist
Discharge Problem:
Syncope, Hypertension, Chest wall pain
Prescriptions:
No Action
rosuvastatin 5 MG tablet
5 mg PO QPM
rivastigmine 1 EACH patch 24 hour
13.3 mg transdermal DAILY
memantine 10 MG tablet
10 mg PO BID
losartan 50 MG tablet
50 mg PO QPM
cholecalciferol (vitamin D3) 1,000 UNITS tablet
2,000 units PO DAILY
levothyroxine [Synthroid] 75 mcg Tablet
75 mcg PO DAILY@0700
diltiazem HCl 120 MG capsule,extended release 24hr
120 mg PO DAILY
carbidopa-levodopa 25-100 mg tablet
2 tab PO DAILY@2000
carbidopa-levodopa 25-100 mg tablet
3 tab PO DAILY@0800,1200,1600
acetaminophen 500 mg Tablet
500 mg PO Q6HPRN PRN (Reason: mild pain)
docusate sodium 100 mg Capsule
100 mg PO BID
melatonin 5 mg Tablet
5 - 10 mg PO HSPRN PRN (Reason: sleep)
Thc Gummies
1 gummy PO HSPRN PRN (Reason: sleep)
sotalol 80 MG tablet
80 mg PO BID
midodrine 2.5 mg Tablet
2.5 mg PO TID
pregabalin [Lyrica] 100 mg Capsule
100 mg PO DAILY@2000
Nuplazid 34 mg Capsule
34 mg PO DAILY@1600
polyethylene glycol 3350 [Miralax] 17 gram Powder In Packet
17 g PO DAILYPRN PRN (Reason: constipation)
Referrals:
Jostin De La O Jr., DO [Family Provider] -
Interventions
Interventions:
*Risk Screen - Suicide Last Done: 10/29/23 10:44
*General Assessment Last Done: 10/29/23 10:44
*Neglect/Abuse Screening Last Done: 10/29/23 10:44
*ED COVID-19 Vaccine History Last Done: 10/29/23 10:44
ED- Cardiac Assessment Last Done: 10/29/23 11:15
ED- Neurological Assessment Last Done: 10/29/23 11:15
Discharge Date and Time
Print Language: DOMINICAN
[2023-10-29] MEDS: MORPHINE SULFATE 2 MG IV (11:31)
[2023-10-29 11:58] LABS: % Basophils 0.7 % (0-2); % Eosinophils 1.1 % (0-6); % Immature Granulocytes 1.3 % (0-0.5); % Lymphocytes 9.2 % (20.5-51.1); % Monocytes 9.5 % (1.7-9.3); % Neutrophils 78.2 % (42.2-75.2); Absolute Basophils 0.1 10^3/uL (0-0.2); Absolute Eosinophils 0.1 10^3/uL (0-0.7); Absolute Immature Granulocytes 0.1 10^3/uL (0-0.05); Absolute Lymphocytes 0.8 10^3/uL (1.2-3.4); Absolute Monocytes 0.8 10^3/uL (0.1-0.6); Absolute Neutrophils 6.7 10^3/uL (1.4-6.5); Hemoglobin 13.6 g/dL (12.0-16.0); Mean Corp Hgb Conc. 33.2 g/dL (33.0-37.0); Mean Corpuscular Hgb 29.6 pg (27.0-31.0); Mean Corpuscular Volume 89.3 fL (81.0-99.0); Mean Platelet Volume 11.4 fL (7.4-10.4); Nucleated Red Blood Cells % 0 %; Platelet Count 122 10^3/uL (130-400); Red Blood Cell Count 4.59 10^6/uL (4.20-5.40); Red Cell Dist. Width 13.6 % (11.5-14.5); White Blood Cell Count 8.5 10^3/uL (4.8-10.8)
[2023-10-29 12:28] LABS: ALT (SGPT) < 10 U/L (0-35); AST (SGOT) 28 U/L (14-36); Albumin 3.8 g/dl (3.5-5.0); Alkaline Phosphatase 87 U/L (38-126); Blood Urea Nitrogen 19 mg/dl (7-17); Calcium 9.2 mg/dl (8.4-10.2); Carbon Dioxide 28 mmol/L (22-30); Chloride 102 mmol/L (98-107); Glucose 93 mg/dl (70-99); Potassium 3.7 mmol/L (3.5-5.1); Sodium 139 mmol/L (135-145); Total Bilirubin 0.9 mg/dl (0.2-1.3); Total Protein 6.4 g/dl (6.3-8.2); eGFR > 60.00
[2023-10-29 12:37] LABS: Troponin I 0.019 ng/ml
[2023-10-29] MEDS: CARDIZEM CD 120 MG PO (14:24)
[2023-10-29 14:31] LABS: Magnesium 1.9 mg/dl (1.6-2.3)
--- NOTE | 2023-10-29 16:28 | CON.CAR ---
Addendum entered and electronically signed by Pb Isaacs MD 10/29/23 17:30:
I saw and examined the patient.
The DIGESTER or PA's note was reviewed and I agree with the note.
Comment: General: Blank facies
Neck: Supple, no JVD, HJR, carotids +2 B/L, no bruits bilaterally.
Heart: Non displaced PMI, RRR, no murmurs, No S3, S4, no rubs.
Lungs: Scattered rhonchi
Extremities: No clubbing, cyanosis or edema bilaterally.
Neuro: Blank facies
Miroslava has a history of hypertension, hyperlipidemia, Parkinson disease, dementia, ambulatory dysfunction with falls, atrial fibrillation on Eliquis and sotalol, sick sinus syndrome status post pacer implant, orthostatic hypotension. She presented
after she was found to be unresponsive on the toilet earlier today. She got CPR. Of note she was started on Nuplazid for hallucinations by neurology.
Suspect episode was due to severe hypotension. Pacemaker check was unremarkable except for stable 2% A-fib burden. Would rather not stop sotalol but will need to follow QT interval. Would stop Nuplazid given risk of QT prolongation I would like
to continue on sotalol to keep patient in sinus rhythm as she is not an anticoagulation candidate. If QT prolongs we could consider stopping sotalol and starting amiodarone after a sotalol washout.
Original Note:
Consultation
Consultation Request
Date/Time Consultation Requested: 10/29/231624
Date/Time Consultation Performed: 10/29/23 1630
Requesting Provider: Melo Flores
Performing Provider: MADDIE Gutierrez
Reason for Consultation: syncope
Medical History
-
Chief Complaint: syncope
History of Present Illness:
Miroslava is an 88-year-old female with has past medical history of hypertension, hyperlipidemia, Parkinson's disease, dementia, ambulatory dysfunction, falls, hypothyroidism, recurrent UTI, atrial fibrillation on anticoagulation (Eliquis), SSS with
Medtronic pacemaker in place, orthostatic hypotension, osteoarthritis and chronic lower back pain with sciatica who was admitted to emergency room after she was found to be unresponsive on the toilet this morning. She had been sitting on the toilet
for 20 minutes and when her aide went to help her get off she was unresponsive. CPR was performed for 2 minutes by EMS and patient regained consciousness and was brought to the ER
She had recently been started on Nuplazid (for hallucinations) by her neurologist and there was a concern that this medication could cause QT prolongation.
Interrogation of her dual-chamber pacemaker in the ER revealed frequent atrial tachycardia, no VT or VF.
She was previously anticoagulated for atrial fibrillation but it was stopped in 03/17 due to frequent falls. Her A-fib is managed with sotalol and diltiazem.
She had a previous admission 05/15 for a fall and confusion.
PMH:
Atrial fibrillation�anticoagulation discontinued in February 2023 due to frequent falls
Sick sinus syndrome, permanent pacemaker in place (Medtronic dual-chamber pacemaker placed July 17, 2021)
BRETT
Hypertension
Parkinson's disease
Dementia
Ambulatory dysfunction
Orthostatic hypotension, on midodrine
Recurrent UTIs
Seizure, January 2022 in the setting of a UTI
Past Medical History
Past Medical History: Arrhythmias, Hypothyroidism and Other (See HPI, vitamin D deficiency, hyperactive bladder, cystocele, female urinary stress incontinence, osteopenia, GERD with Marie's esophagus, benign colon polyp, Raynaud's phenomenon,
seborrheic keratosis, lumbar ago, TMJ, hypoalbuminemia, seasonal allergic rhinitis, vasovagal syncope, fall with pel)
Past Surgical History: Gynecological (Hysterectomy 1975), Tonsilectomy and Other (Cataract extraction, bunionectomy, ptosis with eyebrow lives)
Social History
Tobacco: Non-Smoker
Alcohol: None
Drug: None
Personal:
Living: Alone (With 24-hour aides)
Employment: Retired
Family History
Family History: Reviewed & Not Pertinent and Other (Father of lung cancer, mother of dementia)
Allergies / Home Medications
Allergy/AdvReac Type Severity Reaction Status Date / Time
bisacodyl Allergy Nausea Verified 07/30/23 16:06
[From Dulcolax (bisacodyl)]
�Medication �Instructions �Recorded �Confirmed �Type
rosuvastatin 5 mg tablet 5 mg PO QPM High cholesterol 01/12/20 10/29/23 History
rivastigmine 9.5 mg/24 hour 13.3 mg transdermal DAILY 06/15/21 10/29/23 History
transdermal patch Neurological Condition
memantine 10 mg tablet 10 mg PO BID dementia 06/23/21 10/29/23 History
cholecalciferol (vitamin D3) 25 2,000 units PO DAILY Supplement 07/16/21 10/29/23 History
mcg (1,000 unit) tablet
losartan 50 mg tablet 50 mg PO QPM Blood pressure 07/16/21 10/29/23 History
levothyroxine 75 mcg tablet 75 mcg PO DAILY@0700 Thyroid 02/11/22 10/29/23 History
(Synthroid)
carbidopa 25 mg-levodopa 100 mg 2 tab PO DAILY@1999 Neurological 05/04/22 10/29/23 History
tablet Condition
carbidopa 25 mg-levodopa 100 mg 3 tab PO DAILY@0800,1200,1600 05/04/22 10/29/23 History
tablet Neurological Condition
diltiazem HCl 120 mg 120 mg PO DAILY Blood Pressure 05/04/22 10/29/23 History
capsule,extended release 24 hr
acetaminophen 500 mg tablet 500 mg PO Q6HPRN PRN mild pain 08/15/22 10/29/23 History
Thc Gummies 1 gummy PO HSPRN PRN sleep 05/02/23 10/29/23 History
docusate sodium 100 mg capsule 100 mg PO BID Constipation 05/02/23 10/29/23 History
melatonin 5 mg tablet 5 - 10 mg PO HSPRN PRN sleep 05/02/23 10/29/23 History
sotalol 80 mg tablet 80 mg PO BID Arrhythmia 05/02/23 10/29/23 History
midodrine 2.5 mg tablet 2.5 mg PO TID Blood Pressure 07/14/23 10/29/23 History
pimavanserin 34 mg capsule 34 mg PO DAILY@1600 10/29/23 10/29/23 History
(Nuplazid)
polyethylene glycol 3350 17 gram 17 g PO DAILYPRN PRN constipation 10/29/23 10/29/23 History
oral powder packet (Miralax)
pregabalin 100 mg capsule (Lyrica) 100 mg PO DAILY@199910/29/23 10/29/23 History
Review of Systems
-
Unable to obtain full review of systems at this time due to: Dementia
History Source: Patient and Other (Aid)
All other systems: Negative unless noted
Physical Exam
Vital Signs
Temp Pulse Resp BP Pulse Ox
97.3 F 75 14 202/116 100
10/29/23 10:44 10/29/23 14:30 10/29/23 14:30 10/29/23 14:30 10/29/23 14:15
Lab Results
10/29/23 10:59
10/29/23 11:53
Troponin I 0.019 ng/ml 10/29/23 11:53
GEN: No distress, awake
HEENT: supple, anicteric, mmm
LUNGS: CTA, no wheezes/rales
CV: Reg, S1/S2, 02/27 systolic murmur
ABD: soft, BS+, NT/ND
EXT: No edema
NEURO: Gross non-focal
SKIN: No rash
Impression / Plan
-
Family Physician:� Jostin De La O Jr
Dogger: González Coyle
Impression:
Presented 10/29/2023 with syncope after sitting on toilet for 20 minutes, CPR performed x 2 min, likely micturition syncope
Atrial tachycardia
Orthostatic hypotension
Right-sided weakness and dysarthria, improved
Parkinson's disease
Dementia
Ambulatory dysfunction
Atrial fibrillation
Previous�on anticoagulation (eliquis) but d/rich as outpt February 2023 due to concerns of recurrent falls and balance issues
Sick sinus syndrome, permanent pacemaker in place (Medtronic dual-chamber pacemaker placed July 17, 2021)
BRETT
Hypertension
Recurrent UTIs
Seizure, January 2022 in the setting of a UTI
Echo 05/03/2023: EF 60%, stage II diastolic dysfunction, mild to moderate MR, moderate TR, PA systolic pressure 43, normal RV size and function, no change since 06/13
Echo 04/02/2020: EF 63%, mild LAE. mild MR, mild-mod TR
Lexiscan ST 04/20/2018: small fixed inferior defect c/w soft tissue attenuation; no ischemia
Plan:
Twelve-lead EKG personally reviewed 10/29/2023 shows predominantly V pacing with occasional AV pacing. Interrogation of pacemaker 10/29/2023 in ER reveals episodes of atrial tachycardia. Review of her last device interrogation in office on 09/29/2023
reveals that she is predominantly atrial paced (96%) and ventricular paced 1%, suggesting that she is likely in an atrial arrhythmia in ER today, likely atrial tachycardia per device interrogation..
Replete potassium
Recent echocardiogram showed normal LV function with mild to moderate MR and TR
Troponin negative
Since she cannot be anticoagulated due to falls, prefer she remain on sotalol to maintain sinus rhythm. Stop Nuplazid given concern for QT prolongation. Event today was not caused by ventricular arrhythmia as device interrogation showed no VT/VF
however she would be at increased risk for ventricular arrhythmias with prolonged QT.
Repeat EKG now as telemetry showing atrial pacing. Would like to review QT with patient in sinus rhythm.
No anticoagulation given from prior falls
If able to do orthostatic vital signs, please check.
Blood pressures variable but predominantly elevated, as high as 215/118 in ER. Could be elevated due to events of today but would have her take extra dose of losartan.
In review of her medication she is on midodrine 2.5 mg 3 times daily. Would hold for now given significantly elevated blood pressures.
[2023-10-29] MEDS: LIDOCAINE 4% PATCH 1 PATCH TOPICAL (16:59)
[2023-10-29] MEDS: MAGNESIUM SULFATE 100 IV (17:01)
[2023-10-29] MEDS: KCL 270 MEQ IV (17:24)
--- NOTE | 2023-10-29 18:21 | HPS.HSE ---
Addendum entered and electronically signed by Pb Nuno DO 10/30/23 09:59:
Allergies
Allergy/AdvReac Type Severity Reaction Status Date / Time
bisacodyl Allergy Nausea Verified 07/30/23 16:06
[From Dulcolax (bisacodyl)]
Home Medications
rosuvastatin 5 mg tablet 5 mg PO QPM High cholesterol 01/12/20
rivastigmine 9.5 mg/24 hour transdermal patch 13.3 mg transdermal DAILY Neurological Condition 06/15/21
memantine 10 mg tablet 10 mg PO BID dementia 06/23/21
cholecalciferol (vitamin D3) 25 mcg (1,000 unit) tablet 2,000 units PO DAILY Supplement 07/16/21
losartan 50 mg tablet 50 mg PO QPM Blood pressure 07/16/21
levothyroxine 75 mcg tablet (Synthroid) 75 mcg PO DAILY@0700 Thyroid 02/11/22
carbidopa 25 mg-levodopa 100 mg tablet 2 tab PO DAILY@1999 Neurological Condition 05/04/22
carbidopa 25 mg-levodopa 100 mg tablet 3 tab PO DAILY@0800,1200,1600 Neurological Condition 05/04/22
diltiazem HCl 120 mg capsule,extended release 24 hr 120 mg PO DAILY Blood Pressure 05/04/22
acetaminophen 500 mg tablet 500 mg PO Q6HPRN PRN mild pain 08/15/22
Thc Gummies 1 gummy PO HSPRN PRN sleep 05/02/23
docusate sodium 100 mg capsule 100 mg PO BID Constipation 05/02/23
melatonin 5 mg tablet 5 - 10 mg PO HSPRN PRN sleep 05/02/23
sotalol 80 mg tablet 80 mg PO BID Arrhythmia 05/02/23
midodrine 2.5 mg tablet 2.5 mg PO TID Blood Pressure 07/14/23
pimavanserin 34 mg capsule (Nuplazid) 34 mg PO DAILY@1600 10/29/23
polyethylene glycol 3350 17 gram oral powder packet (Miralax) 17 g PO DAILYPRN PRN constipation 10/29/23
pregabalin 100 mg capsule (Lyrica) 100 mg PO DAILY@199910/29/23
Original Note:
Family Physician
<Melo Flores MD, Resident - Last Filed: 10/29/23 20:01>
-
Family Physician: Jostin De La O Jr.
Chief Complaint
<Melo Flores MD, Resident - Last Filed: 10/29/23 20:01>
-
Syncope
History of Present Illness
Miroslava Umanzor is a 88 yo Female with a past medical history of Dementia, parkinson's disease, Afib (not on anticoagulation), hypertension, hyperlipidemia, and ASCVD s/p pacemaker placement who presented to the ED by EMS.
History was obtained from both patient and home health aid [facility] ([phone]).
Patient was in her usual state of health this morning. She woke up and used the rest room without incident, after which at around 8am morning doses of all her medications were given. At around 10AM, the patient was helped to the bathroom. When Teca
left to get wipes, she returned to find the patient slumped on the toilet. The patient did not respond to verbal stimuli, but her chest was moving. After several moments of not responding, the patient's left arm went limp. At this point, 911 was
called. While waiting for medics to arrive the patient's right side became limp. At no point during this time were any jerking motions noted. There were no complaints of chest pain during or after this event, which the patient also denies as well.
There were no sick contacts and the patient did not report any fevers, chills, nausea, vomiting, diarrhea, or urinary symptoms. Patient's vital signs were stable this morning.
EMS began CPR on the patient which lasted 2 minutes before she became responsive. After this time she was brought to the ED.
Of note, the health aid endorses a recent medication addition of Nuplazid, which had a warning of cardiac side effects (prolong QTc).
The patient on examination was groggy and in pain, particularly around the chest. She experiences pain on movement of her upper body and deep breaths. She is not experiencing any palpitations.
Medical History
<Melo Flores MD, Resident - Last Filed: 10/29/23 20:01>
Past Medical History
Past Medical History: Reports Arrhythmia (Afib), CAD, CVA, HTN, Hypercholesterolemia, Hypothyroidism and Psychiatric (Dementia, Parkinsons)
Past Surgical History: Reports Cardiac (Pacemaker)
Social History
Unable to obtain full social history at this time due to: Dementia
Tobacco: Non-smoker
Alcohol: None
Drug: None
Family History
Family History: Not pertinent
Allergies / Home Medications
Allergies reflects when Allergies were last updated in [facility].
Home Medications with original date entered in [facility]
Allergy/Medication List:
NKDA
Review of Systems
<Melo Flores MD, Resident - Last Filed: 10/29/23 20:01>
-
Unable to obtain full review of systems at this time due to: Dementia
History Source: Patient and Coordinated Provider
A 12 point ROS was completed and negative except as noted: Yes
Constitutional: Reports No Symptoms
EENT: Reports No Symptoms
Respiratory: Reports No Symptoms
Cardiac: Reports Chest Pain
Abdomen/GI: Reports No Symptoms
: Reports No Symptoms
Musculoskeletal: Reports No Symptoms
Skin: Reports No Symptoms
Neurological: Reports No Symptoms
Endocrine: Reports No Symptoms
Hematologic/Lymphatic: Reports No Symptoms
Psych: Reports Dementia
Physical Exam
<Melo Flores MD, Resident - Last Filed: 10/29/23 20:01>
Vital Signs
Vital Signs
Temp Pulse Resp BP Pulse Ox
97.3 F 75 17 199/108 100
09/06/24 10:44 10/29/23 17:30 10/29/23 17:30 10/29/23 17:00 10/29/23 17:30
Physical Exam
General: Well Developed, Well Nourished and Pain
HEENT: NormoCephalic, Anicteric, Moist mucous membranes, Atraumatic, PERRLA and [place] Conjunctivae
Respiratory: Clear
Cardiac: S1/S2 and Regular Rhythm
Breast: Deferred by me
GI: Soft, Non Tender, Non Distended and Normal Bowel Sounds
Genito-urinary: Deferred by me
Musculoskeletal: No Clubbing and No Cyanosis
Neuro: Awake and Oriented
Laboratory Results
<Melo Flores MD, Resident - Last Filed: 10/29/23 20:01>
-
10/29/23 10:59
10/29/23 11:53
Laboratory Results
Total Bilirubin 0.9 mg/dl (0.2-1.3) 10/29/23 11:53
AST 28 U/L (14-36) 10/29/23 11:53
ALT < 10 U/L (0-35) 10/29/23 11:53
Alkaline Phosphatase 87 U/L (38-126) 10/29/23 11:53
Troponin I 0.019 ng/ml 10/29/23 11:53
Impression/Plan
<Melo Flores MD, Resident - Last Filed: 10/29/23 20:01>
-
88 yo F with a PMHx of Dementia, Parkinson's, Afib (not on OAC), hypertension, hyperlipidemia, hypothyroidism, ASCVD s/p pacemaker, orthostatic hypotension
#Witnessed Syncopal event
#Unresponsiveness
- Etiology unclear, most likely cardiogenic, possibly due to severe hypotension
- Will keep on fall precautions and monitor VS, hold medications as below
- Transfer to IMU, monitor on telemetry
#Atrial Fibrillation
- Not on oral anticoagulation due to history of recurrent falls
- Pacemaker interrogation during this admission shows 2%A-fib burden
- Cardiology following
- Will continue to monitor, cardiology to re-evaluate pacemaker
#Chest pain, likely musculoskeletal secondary to chest compressions
- CXR on admission (-) for rib fracture
- Lidocaine patch for local pain control and IV Toradol
#Orthostatic Hypotension
- Hold Midodrine for now as BPs have been elevated since admission
- Orthostatic vitals in the AM
#Hypertension
- Give extra dose of Losartan today considering elevated BPs
- C/w Diltiazem
- Will continue with Sotalol for now as patient is not a candidate for oral anticoagulation; will coordinate with cardiology for further recs as they are also following
#Hypothyroidism
- c/w home levothyroxine
#Parkinson's Disease
- c/w home Carbidopa/Levodopa
#Dementia
- c/w home memantine, Rivastigmine patch, gabapentin for sleep
- Hold new drug Nuplazid
#ACSVD
#Hyperlipidemia
- c/w Rosuvastatin
#Dispo:
IMU
Diet: Cholesterol Lowering
DVT PPx: Lovenox SC
Code Status: Full Code
<Pb Nuno, - Last Filed: 10/29/23 21:00>
-
88 yo F with a PMHx of Dementia, Parkinson's, Afib (not on OAC), hypertension, hyperlipidemia, hypothyroidism, ASCVD s/p pacemaker, orthostatic hypotension
#Witnessed Syncopal event
#Unresponsiveness
- Etiology unclear, most likely cardiogenic, possibly due to severe hypotension
- Will keep on fall precautions and monitor VS, hold medications as below
- Transfer to IMU, monitor on telemetry
#Atrial Fibrillation
- Not on oral anticoagulation due to history of recurrent falls
- Pacemaker interrogation during this admission shows 2%A-fib burden
- Cardiology following
- Will continue to monitor, cardiology to re-evaluate pacemaker
#Chest pain, likely musculoskeletal secondary to chest compressions
- CXR on admission (-) for rib fracture
- Lidocaine patch for local pain control and IV Toradol
#Orthostatic Hypotension
- C/w Midodrine for now as HotN may have caused syncope, chronic orthostasis
- Orthostatic vitals in the AM
#Hypertension
- C/w Diltiazem
- Will continue with Sotalol for now as patient is not a candidate for oral anticoagulation; will coordinate with cardiology for further recs as they are also following
#Hypothyroidism
- c/w home levothyroxine
#Parkinson's Disease
- c/w home Carbidopa/Levodopa
#Dementia
- c/w home memantine, Rivastigmine patch, gabapentin for sleep
- Hold new drug Nuplazid
#ACSVD
#Hyperlipidemia
- c/w Rosuvastatin
#Dispo:
IMU
Diet: Cholesterol Lowering
DVT PPx: Lovenox SC
Code Status: Full Code
[2023-10-29] MEDS: CRESTOR 5 MG PO (19:55)
[2023-10-29] MEDS: COLACE 100 MG PO (19:55)
[2023-10-29] MEDS: COZAAR 50 MG PO (19:55)
[2023-10-29] MEDS: SINEMET 25-100 2 TABLET PO (19:55)
[2023-10-29] MEDS: LOVENOX 40 MG SC (19:56)
[2023-10-29] MEDS: LYRICA 100 MG PO (19:56)
[2023-10-29] MEDS: ProAmatine PO (19:56)
[2023-10-29] MEDS: NAMENDA 10 MG PO (19:56)
[2023-10-29] MEDS: BETAPACE 80 MG PO (20:55)
--- NOTE | 2023-10-29 21:41 | PTCARENOTE ---
Pt received at beginning of shift as admission to IMU. AAOx3. Can be confused per family/live-in caregiver. Drowsy. Denies pain - lidocaine patch to sternum. Admission meds gone over with daughter Chela. Pt received HS meds without difficulty.
Hypertensive - not sure how accurate since pt tightens up with each BP check. Midodrine held. 100% A paced occas AV paved/PQT. POX 99% on 2L NC. Purewick in place draining yellow urine. Family/caregiver left before admissions questions could be
asked. Wound care given and documented. Wound consult entered. Bedrest. Bed alarm on and working. Call gomez within reach. Will continue to monitor.
[2023-10-29] MEDS: MELATONIN 10 MG PO (23:13)
[2023-10-30] VITALS (14 sets, daily range): BP systolic 91–158; BP diastolic 60–108; PULSE 75–76; BMI 23.1
[2023-10-30 05:30] LABS: % Basophils 0.4 % (0-2); % Eosinophils 0.7 % (0-6); % Immature Granulocytes 0.7 % (0-0.5); % Lymphocytes 10.1 % (20.5-51.1); % Monocytes 10.6 % (1.7-9.3); % Neutrophils 77.5 % (42.2-75.2); Absolute Eosinophils 0.1 10^3/uL (0-0.7); Absolute Immature Granulocytes 0.1 10^3/uL (0-0.05); Absolute Lymphocytes 0.8 10^3/uL (1.2-3.4); Absolute Monocytes 0.8 10^3/uL (0.1-0.6); Absolute Neutrophils 5.8 10^3/uL (1.4-6.5); Hematocrit 41.6 % (37.0-47.0); Hemoglobin 13.6 g/dL (12.0-16.0); Mean Corp Hgb Conc. 32.7 g/dL (33.0-37.0); Mean Corpuscular Hgb 29.4 pg (27.0-31.0); Mean Platelet Volume 11.1 fL (7.4-10.4); Nucleated Red Blood Cells % 0 %; Platelet Count 113 10^3/uL (130-400); Red Blood Cell Count 4.62 10^6/uL (4.20-5.40); Red Cell Dist. Width 13.8 % (11.5-14.5); White Blood Cell Count 7.5 10^3/uL (4.8-10.8)
[2023-10-30 05:44] LABS: ALT (SGPT) < 10 U/L (0-35); AST (SGOT) 26 U/L (14-36); Albumin 3.5 g/dl (3.5-5.0); Alkaline Phosphatase 87 U/L (38-126); Blood Urea Nitrogen 19 mg/dl (7-17); Carbon Dioxide 26 mmol/L (22-30); Chloride 103 mmol/L (98-107); Estimated Creatinine Clearance 37 ml/min; Glucose 93 mg/dl (70-99); Magnesium 2.3 mg/dl (1.6-2.3); Potassium 4.9 mmol/L (3.5-5.1); Sodium 138 mmol/L (135-145); Total Bilirubin 0.9 mg/dl (0.2-1.3); Total Protein 6.1 g/dl (6.3-8.2); eGFR > 60.00
[2023-10-30] MEDS: SYNTHROID 75 MCG PO (08:17)
[2023-10-30] MEDS: NAMENDA 10 MG PO ×2 (08:17→20:18)
[2023-10-30] MEDS: ProAmatine 2.5 MG PO ×2 (08:17→12:23)
[2023-10-30] MEDS: COLACE 100 MG PO ×2 (08:17→20:18)
[2023-10-30] MEDS: VITAMIN D3 (cholecalciferol) 50 MCG PO (08:17)
[2023-10-30] MEDS: EXELON PATCH 13.3 MG TRANSDERM (08:18)
[2023-10-30] MEDS: LIDOCAINE 4% PATCH 1 PATCH TOPICAL (08:18)
[2023-10-30] MEDS: SINEMET 25-100 3 TABLET PO ×3 (08:20→17:13)
[2023-10-30] MEDS: CARDIZEM CD 120 MG PO (08:20)
[2023-10-30] MEDS: BETAPACE 80 MG PO ×2 (08:20→20:17)
--- NOTE | 2023-10-30 09:53 | W.PN.HOSP.TC ---
Today's Communication/Plan
-
Remain on telemetry
Orthostatic vital sign
Discontinue losartan, monitor BP, consider IVF
Obtain chest x-ray, monitor oxygen status
Assessment / Plan
Assessment / Plan
#Syncope -- witnessed, given short course of CPR, suspicion low for cardiac arrest
#H/O vasovagal syncope
-Differentials include vasovagal versus hypotensive versus cardiac
-Suspicion high for vasovagal/hypotension based off of history
-Initial ECG did show some signs of P/R wave dyssynchrony
-Cardiology evaluated, pacemaker functioning properly with underlying AF
-Holding antihypertensive agents such as losartan
-Will continue to monitor on telemetry, daily orthostatic vitals
#Brief episode of hypoxemia
-89% on room air today, patient has been drowsy and sleeping a lot
-Suspect that this was an event while sleeping
-Started supplemental oxygen, ordered chest X-ray
#QTc prolongation -- 596 ms on admission
-Likely secondary to Nuplazid and sotalol, unlikely related to her syncope
-Discontinue Nuplazid on arrival, cardiology prefers to keep sotalol to maintain sinus rhythm
-Electrolytes this morning adequate
-Will continue on telemetry, K goal >4 and Mg goal >2
#Thrombocytopenia
-Does have a history of previous episodes of thrombocytopenia that resolved
-Suspect thrombocytopenia here is related to chest compressions
-No obvious signs of abnormal bleeding, thrombotic event
-Will continue to monitor CBC, monitor for bleeding
#Musculoskeletal chest pain
-Secondary to chest compressions
-Improved with lidocaine patch, will continue daily
#Chronic hypertension
-As of this morning her blood pressure was softer, systolic <100 mmHg
-Suspect at this point that hypotension and orthostasis are bigger issue for her
-Losartan discontinued, will continue to monitor blood pressure
-Continue with orthostatic vitals as above, avoid supine BP
#Chronic atrial fibrillation, not anticoagulant
-Nonvalvular A-fib with elevated [id number] though absolute contraindication due to fall risk
-Remains on diltiazem for rate control and sotalol for rhythm control
-Cardiology prefers to keep sotalol despite long QTc to maintain NSR
#Hypothyroidism
-Unclear cause, medications include levothyroxine 75 mcg daily
-No obvious signs or symptoms of thyroid dysfunction as of now
#Status post dual-chamber pacemaker
-On arrival no signs of underlying VT/VF upon pacemaker interrogation
-Cardiology evaluated and states pacemaker is functioning properly
#Parkinson's disease C/B orthostasis
-Remains on Sinemet 25 mg - 100 mg 4 times daily, midodrine 2.5 mg 3 times daily
DVT prophylaxis: Lovenox
Diet: Regular
CODE STATUS: Full
Anticipated Discharge: Within 24 hours
Subjective/Interval History
-
Date of Service: October 30, 2023
Seen and examined at bedside. No acute events overnight. Telemetry without acute events
As of this morning AFVSS. Blood pressure is a little soft with systolic pressures <100 mmHg.
She denies any acute complaints though history is limited by her mental status. No recurrence of syncopal episodes noted.
Objective Data
-
Labs:
Laboratory Results
10/30/23
04:48
WBC 7.5
Hgb 13.6
Hct 41.6
Plt Count 113 L
Sodium 138
Potassium 4.9 D
Chloride 103
Carbon Dioxide 26
BUN 19 H
Creatinine 0.9
Glucose 93
Calcium 9.0
Total Bilirubin 0.9
AST 26
ALT < 10
Alkaline Phosphatase 87
Vital Signs:
Vital Signs
Temp Pulse Resp BP Pulse Ox
98.4 F 75 11 98/64 100
10/30/23 07:10 10/30/23 08:20 10/30/23 06:00 10/30/23 08:20 10/30/23 06:00
I&O
10/29/23 10/30/23 10/31/23
06:59 06:59 06:59
Intake Total 100 / 100
Output Total 500 / 500
Balance -400 / -400
Review of Systems
-
Unable to obtain full review of systems at this time due to: Dementia
History Source: Patient
Physical Exam
-
General: No Apparent Distress, Comfortable, Conversant and Cachectic
HEENT: Normocephalic, Atraumatic, Moist Mucous Membranes and Anicteric
Respiratory: Clear to Auscultation and Non Labored Respirations; Negative Wheezes, Rales or Rhonchi
Cardiac: Regular Rhythm and S1/S2; Negative Murmur, Rub, JVD or Gallop
GI: Soft, Nontender, Nondistended and Normal Bowel Sounds
Musculoskeletal: No Clubbing, No Cyanosis and No Edema
Skin: Warm and Dry; Negative Rash
Neuro: AO x 3, Nonfocal/Grossly Intact and Central Nerve's Intact
Psych: Apparent Dementia
Data Reviewed
-
Diagnostic Radiology: Image personally visualized and interpreted
Labs: Labs Reviewed by me
--- NOTE | 2023-10-30 10:10 | W.PN.CARDCBS ---
Today's Communication / Plan
-
Check orthostatics later today
Consider increasing midodrine but patient was very hypertensive on admission
Follow ECG on sotalol regarding QT interval
Impression / Plan
-
Family Physician:� Jostin De La O Jr
Dry Boss: González Coyle
Impression:
Presented 10/29/2023 with syncope after sitting on toilet for 20 minutes, CPR performed x 2 min, likely micturition syncope
Atrial tachycardia
Orthostatic hypotension
Right-sided weakness and dysarthria, improved
Parkinson's disease
Dementia
Ambulatory dysfunction
Atrial fibrillation
Previous�on anticoagulation (eliquis) but d/rich as outpt February 2023 due to concerns of recurrent falls and balance issues
Sick sinus syndrome, permanent pacemaker in place ([employer] dual-chamber pacemaker placed July 17, 2021)
BRETT
Hypertension
Recurrent UTIs
Seizure, January 2022 in the setting of a UTI
Echo 05/03/2023: EF 60%, stage II diastolic dysfunction, mild to moderate MR, moderate TR, PA systolic pressure 43, normal RV size and function, no change since 06/13
Echo 04/02/2020: EF 63%, mild LAE. mild MR, mild-mod TR
Lexiscan ST 04/20/2018: small fixed inferior defect c/w soft tissue attenuation; no ischemia
Plan:
Syncope felt to be due to vasovagal etiology
Pacemaker check was unremarkable other than low burden A-fib which has been stable
Check orthostatics later today
May need to consider increasing midodrine dose but she was hypertensive on admission
QT interval is acceptable and will continue sotalol for now
Will follow ECG
She cannot be anticoagulated due to falls
Nuplazid has been stopped given concern for QT prolongation.
Discussed with nursing and primary service
Progress Note - Dry Boss
Subjective
Date of Service: October 30, 2023
Sleeping at present
Objective
Labs:
10/30/23 04:48
10/30/23 04:48
Labs
Hgb 13.6 g/dL (12.0-16.0) 10/30/23 04:48
Hct 41.6 % (37.0-47.0) 10/30/23 04:48
Plt Count 113 10^3/uL (130-400) L 10/30/23 04:48
Sodium 138 mmol/L (135-145) 10/30/23 04:48
Potassium 4.9 mmol/L (3.5-5.1) D 10/30/23 04:48
BUN 19 mg/dl (7-17) H 10/30/23 04:48
Creatinine 0.9 mg/dL (0.6-1.0) 10/30/23 04:48
Glucose 93 mg/dl (70-99) 10/30/23 04:48
Troponins
10/29/23 10/29/23
10:59 11:53
Troponin I Cancelled 0.019
Vital Signs and I&O:
Vital Signs
Temp Pulse Resp BP Pulse Ox
98.4 F 75 11 98/64 94
10/30/23 07:10 10/30/23 08:20 10/30/23 06:00 10/30/23 08:20 10/30/23 08:35
Vital Signs
Temp Pulse Resp BP Pulse Ox
98.4 F 75 11 98/64 94
10/30/23 07:10 10/30/23 08:20 10/30/23 06:00 10/30/23 08:20 10/30/23 08:35
Intake & Output
10/28/23 10/29/23 10/30/23 10/31/23
06:59 06:59 06:59 06:59
Intake Total 100 / 100
Output Total 500 / 500
Balance -400 / -400
Physical Exam
Physical Exam
General: Sleeping at present
Neck: Supple, no JVD, HJR, carotids +2 B/L, no bruits bilaterally.
Heart: Non displaced PMI, RRR, no murmurs, No S3, S4, no rubs.
Lungs: Poor effort
Extremities: No clubbing, cyanosis or edema bilaterally.
Neuro: Sleeping at present
--- NOTE | 2023-10-30 12:39 | CM ---
Cm reviewed medical records. Patient lives alone with a CUT OUT WORKER 14/09. Patient has had a history [facility]. Patient remains acutely ill. CM will continue to follow.
--- NOTE | 2023-10-30 16:11 | PTCARENOTE ---
pt confused, climbing out of bed. pulling at IV. Repositioned, changed. CB in reach and bed alarm on.
[2023-10-30] MEDS: CRESTOR 5 MG PO (17:14)
[2023-10-30] MEDS: LOVENOX 40 MG SC (17:14)
[2023-10-30] MEDS: ProAmatine PO (17:24)
[2023-10-30] MEDS: SINEMET 25-100 2 TABLET PO (20:17)
[2023-10-30] MEDS: LYRICA 100 MG PO (20:18)
[2023-10-30] MEDS: MELATONIN 10 MG PO (20:18)
[2023-10-31] VITALS (7 sets, daily range): BP systolic 121–191; BP diastolic 67–128
--- NOTE | 2023-10-31 01:10 | PTCARENOTE ---
Pt received at beginning of shift resting in bed. AAOx3 but confused conversation. Attempts made to get oob multiple times. Restless. Hard to redirect at times. Bed alarm on and working. Pt with visual hallucinations, seeing a man in her room,
stating she needs to let her grandson know that she knows he is here from [place]. Incontinent large amount urine. Pt cleansed and changed. VSS. 100% Apaced/PQT on CM. Afebrile. POX RA 99%. Coreg held not meeting parameters. Winces from chest
pain with any movement. Maintained on Q2hr turns. Call gomez remains within reach. Will continue to monitor.
--- NOTE | 2023-10-31 01:22 | PTCARENOTE ---
Pt received at beginning of shift resting in bed. AAOx3 but confused conversation. Attempts made to get oob multiple times. Restless. Hard to redirect at times. Bed alarm on and working. Pt with visual hallucinations, seeing a man in her room,
stating she needs to let her grandson know that she knows he is here from [place]. Incontinent large amount urine. Pt cleansed and changed. VSS. 100% Apaced/PQT on CM. Afebrile. POX RA 99%. Winces from chest pain with any movement. Maintained on
Q2hr turns. Call gomez remains within reach. Will continue to monitor.
[2023-10-31 05:14] LABS: % Basophils 0.4 % (0-2); % Eosinophils 1.5 % (0-6); % Immature Granulocytes 0.8 % (0-0.5); % Lymphocytes 9.9 % (20.5-51.1); % Monocytes 9.7 % (1.7-9.3); % Neutrophils 77.7 % (42.2-75.2); Absolute Eosinophils 0.1 10^3/uL (0-0.7); Absolute Immature Granulocytes 0.1 10^3/uL (0-0.05); Absolute Lymphocytes 0.7 10^3/uL (1.2-3.4); Absolute Monocytes 0.7 10^3/uL (0.1-0.6); Absolute Neutrophils 5.8 10^3/uL (1.4-6.5); Hemoglobin 13.6 g/dL (12.0-16.0); Mean Corp Hgb Conc. 33.2 g/dL (33.0-37.0); Mean Corpuscular Hgb 29.4 pg (27.0-31.0); Mean Corpuscular Volume 88.7 fL (81.0-99.0); Mean Platelet Volume 10.7 fL (7.4-10.4); Nucleated Red Blood Cells % 0 %; Platelet Count 106 10^3/uL (130-400); Red Blood Cell Count 4.62 10^6/uL (4.20-5.40); Red Cell Dist. Width 13.6 % (11.5-14.5); White Blood Cell Count 7.5 10^3/uL (4.8-10.8)
[2023-10-31 05:16] LABS: Blood Urea Nitrogen 23 mg/dl (7-17); Calcium 9.2 mg/dl (8.4-10.2); Carbon Dioxide 26 mmol/L (22-30); Chloride 103 mmol/L (98-107); Estimated Creatinine Clearance 48 ml/min; Glucose 84 mg/dl (70-99); Magnesium 2.1 mg/dl (1.6-2.3); Potassium 4.5 mmol/L (3.5-5.1); Sodium 137 mmol/L (135-145); eGFR > 60.00
[2023-10-31] MEDS: EXELON PATCH 13.3 MG TRANSDERM (09:04)
[2023-10-31] MEDS: LIDOCAINE 4% PATCH 1 PATCH TOPICAL (09:04)
[2023-10-31] MEDS: SINEMET 25-100 3 TABLET PO (09:05)
[2023-10-31] MEDS: BETAPACE 80 MG PO (09:05)
[2023-10-31] MEDS: SYNTHROID 75 MCG PO (09:05)
[2023-10-31] MEDS: NAMENDA 10 MG PO (09:06)
[2023-10-31] MEDS: COLACE 100 MG PO (09:06)
[2023-10-31] MEDS: VITAMIN D3 (cholecalciferol) 50 MCG PO (09:06)
[2023-10-31] MEDS: CARDIZEM CD 120 MG PO (09:06)
[2023-10-31] MEDS: ProAmatine PO (09:06)
--- NOTE | 2023-10-31 10:22 | W.PN.HOSP.TC ---
Today's Communication/Plan
-
Discharge planning
Assessment / Plan
Assessment / Plan
#Syncope -- witnessed, given short course of CPR, suspicion low for cardiac arrest
#H/O vasovagal syncope
-Differentials include vasovagal versus hypotensive versus cardiac
-Suspicion high for vasovagal/hypotension based off of history
-Initial ECG did show some signs of P/R wave dyssynchrony
-Cardiology evaluated, pacemaker functioning properly with underlying AF
-Holding antihypertensive agents such as losartan
-Blood pressure has been stable off of losartan
-Will consider low-dose hydralazine for SBP >200 at DC
#Brief episode of hypoxemia
-89% on room air today, patient has been drowsy and sleeping a lot
-Suspect that this was an event while sleeping
-Started supplemental oxygen, ordered chest X-ray
#QTc prolongation -- 596 ms on admission
-Likely secondary to Nuplazid and sotalol, unlikely related to her syncope
-Discontinue Nuplazid on arrival, cardiology prefers to keep sotalol to maintain sinus rhythm
-Electrolytes this morning adequate
-Will continue on telemetry, K goal >4 and Mg goal >2
#Thrombocytopenia
-Does have a history of previous episodes of thrombocytopenia that resolved
-Suspect thrombocytopenia here is related to chest compressions
-No obvious signs of abnormal bleeding, thrombotic event
-Will continue to monitor CBC, monitor for bleeding
#Musculoskeletal chest pain
-Secondary to chest compressions
-Improved with lidocaine patch, will continue daily
#Chronic hypertension
-As of this morning her blood pressure was softer, systolic <100 mmHg
-Suspect at this point that hypotension and orthostasis are bigger issue for her
-Losartan discontinued, will continue to monitor blood pressure
-Continue with orthostatic vitals as above, avoid supine BP
#Chronic atrial fibrillation, not anticoagulant
-Nonvalvular A-fib with elevated [id number] though absolute contraindication due to fall risk
-Remains on diltiazem for rate control and sotalol for rhythm control
-Cardiology prefers to keep sotalol despite long QTc to maintain NSR
#Hypothyroidism
-Unclear cause, medications include levothyroxine 75 mcg daily
-No obvious signs or symptoms of thyroid dysfunction as of now
#Status post dual-chamber pacemaker
-On arrival no signs of underlying VT/VF upon pacemaker interrogation
-Cardiology evaluated and states pacemaker is functioning properly
#Parkinson's disease C/B orthostasis
-Remains on Sinemet 25 mg - 100 mg 4 times daily, midodrine 2.5 mg 3 times daily
DVT prophylaxis: Lovenox
Diet: Regular
CODE STATUS: Full
Anticipated Discharge: Today
Subjective/Interval History
-
Date of Service: October 31, 2023
Seen and examined at bedside. No acute events overnight. AFVSS this morning
She denies any acute complaints. States she feels well. History limited by dementia
Objective Data
-
Labs:
Laboratory Results
10/31/23
03:57
WBC 7.5
Hgb 13.6
Hct 41.0
Plt Count 106 L
Sodium 137
Potassium 4.5
Chloride 103
Carbon Dioxide 26
BUN 23 H
Creatinine 0.7
Glucose 84
Calcium 9.2
Vital Signs:
Vital Signs
Temp Pulse Resp BP Pulse Ox
97.8 F 84 17 191/126 97
10/31/23 07:03 10/31/23 09:06 10/31/23 06:00 10/31/23 09:06 10/31/23 06:00
I&O
10/30/23 10/31/23 11/01/23
06:59 06:59 06:59
Intake Total 100 / 100 100 / 100
Output Total 500 / 500
Balance -400 / -400 100 / 100
Review of Systems
-
Unable to obtain full review of systems at this time due to: Dementia
Physical Exam
-
General: No Apparent Distress, Comfortable and Other (Thin, frail elderly female)
HEENT: Normocephalic, Atraumatic and Moist Mucous Membranes
Respiratory: Clear to Auscultation and Non Labored Respirations
Cardiac: Regular Rhythm, S1/S2 and Murmur; Negative Rub or Gallop
GI: Soft, Nontender, Nondistended and Normal Bowel Sounds
Musculoskeletal: No Clubbing, No Cyanosis and No Edema
Neuro: Awake, Alert, Oriented, Nonfocal/Grossly Intact and Central Nerve's Intact
Data Reviewed
-
Labs: Labs Reviewed by me
--- NOTE | 2023-10-31 10:33 | W.DCSUMMARY ---
Discharge Summary
Discharge Data
Date of Admission: 10/29/23
Date of Discharge: 10/31/23
-
Pending Results: No
Hospital Course
88-year-old female with Parkinson's disease C/B orthostasis, atrial fibrillation (no AC), s/p PPM, history of vasovagal syncope, hypertension that presented with a syncopal episode while on the toilet. Suspect hypotension driving the process that
led her here. Discontinued her losartan nightly. Monitor blood pressure closely. Long-term risk benefits assessed, patient more likely to benefit from high blood pressures than hypotensive episodes with her chronic orthostasis and history of
vasovagal syncope. Started 10 mg hydralazine p.o. as needed for SBP >200 mmHg. Cautioned family on monitoring for orthostatic signs and symptoms, recurrent syncopal episodes.
She was also found to have prolonged QTc of 596 ms on arrival. Recently was started on Nuplazid which was delineated as cause. After discontinuing Nuplazid QTc improved, she remained on her home sotalol at cardiology's recommendations. With her
contraindication anticoagulation, maintaining sinus rhythm preferred. May follow-up with outpatient primary care or psychiatry for consideration of other antipsychotic agents for her hallucination history.
Discharge Plan
-
Patient Disposition: Home (Routine Discharge)
Discharge Diagnosis/Procedures: Syncope
Hypotension
Chronic orthostasis
Condition: Good
Diet: No restrictions
Activity: As tolerated
Driving Restrictions: No driving for 24 hours
Bathing Restrictions: None
Activity Restrictions/Additional Instructions:
Schedule follow-up appointment with primary care doctor and director of respiratory therapy within 7 days of discharge from the hospital.
Caution with positional changes as she may have drops in blood pressure
Instructions: Syncope (fainting)
Referrals:
Jostin De La O Jr., DO [Family Provider] -
Additional Discharge Medication Instructions: Stop taking losartan
Stop taking Nuplazid
Start taking hydralazine 10 mg as needed for systolic blood pressure (top number) >200 mmHg
Prescriptions:
New
hydralazine 10 mg tablet
10 mg PO TID PRN (Reason: Systolic blood pressure > 200 mmHg) 30 Days Qty: 90 0RF
Continued
rosuvastatin 5 MG tablet
5 mg PO QPM
rivastigmine 1 EACH patch 24 hour
13.3 mg transdermal DAILY
memantine 10 MG tablet
10 mg PO BID
cholecalciferol (vitamin D3) 1,000 UNITS tablet
2,000 units PO DAILY
levothyroxine [Synthroid] 75 mcg Tablet
75 mcg PO DAILY@0700
diltiazem HCl 120 MG capsule,extended release 24hr
120 mg PO DAILY
carbidopa-levodopa 25-100 mg tablet
2 tab PO DAILY@1999
carbidopa-levodopa 25-100 mg tablet
3 tab PO DAILY@0800,1200,1600
acetaminophen 500 mg Tablet
500 mg PO Q6HPRN PRN (Reason: mild pain)
docusate sodium 100 mg Capsule
100 mg PO BID
melatonin 5 mg Tablet
5 - 10 mg PO HSPRN PRN (Reason: sleep)
Thc Gummies
1 gummy PO HSPRN PRN (Reason: sleep)
sotalol 80 MG tablet
80 mg PO BID
midodrine 2.5 mg Tablet
2.5 mg PO TID
pregabalin [Lyrica] 100 mg Capsule
100 mg PO DAILY@1999
polyethylene glycol 3350 [Miralax] 17 gram Powder In Packet
17 g PO DAILYPRN PRN (Reason: constipation)
Discontinued
losartan 50 MG tablet
50 mg PO QPM
Nuplazid 34 mg Capsule
34 mg PO DAILY@1600
Discharge Orders:
Discharge Patient (As Directed); Ordered 10/31/23
Ordered By: Pb Nuno
Discharge Date and Time
Print Language: STATELESS
[2023-10-31] MEDS: TYLENOL 500 MG PO (11:13)
--- NOTE | 2023-10-31 11:24 | CM ---
Cm reviewed medical records. Plan for discharge to home today with 24/7 [employer]PARTMENT [employer]PER[employer] care. Daughter is agreeable to continued care by [facility]. Referral sent via [facility].
PLAN: [facility], 24 [employer] DE[employer]MENT [employer] care.
--- NOTE | 2023-10-31 11:30 | W.PN.CARDCBS ---
Today's Communication / Plan
-
Very difficult treatment dilemma with severe hypertension and orthostasis
Stable cardiology status for discharge with high risk for recurrent admissions but little options available
QT interval okay on sotalol
Impression / Plan
-
Family Physician:� Jostin De La O Jr
Hr Specialist: González Coyle
Impression:
Presented 10/29/2023 with syncope after sitting on toilet for 20 minutes, CPR performed x 2 min, likely micturition syncope
Atrial tachycardia
Orthostatic hypotension
Right-sided weakness and dysarthria, improved
Parkinson's disease
Dementia
Ambulatory dysfunction
Atrial fibrillation
Previous�on anticoagulation (eliquis) but d/rich as outpt February 2023 due to concerns of recurrent falls and balance issues
Sick sinus syndrome, permanent pacemaker in place ([employer]tronic dual-chamber pacemaker placed July 17, 2021)
BRETT
Hypertension
Recurrent UTIs
Seizure, January 2022 in the setting of a UTI
Echo 05/03/2023: EF 60%, stage II diastolic dysfunction, mild to moderate MR, moderate TR, PA systolic pressure 43, normal RV size and function, no change since 06/13
Echo 04/02/2020: EF 63%, mild LAE. mild MR, mild-mod TR
Lexiscan ST 04/20/2018: small fixed inferior defect c/w soft tissue attenuation; no ischemia
Plan:
Syncope felt to be due to vasovagal etiology with normal pacemaker check
Unfortunately cannot increase midodrine with severe hypertension at times and very labile blood pressure
Plan is to hold losartan and give as needed hydralazine at home
Overall prognosis remains poor
QT interval is acceptable and will continue sotalol for now
She cannot be anticoagulated due to falls
Nuplazid has been stopped given concern for QT prolongation.
Discussed with primary service
Stable cardiology status for discharge
Progress Note - Hr Specialist
Subjective
Date of Service: October 31, 2023
No complaints
Objective
Labs:
10/31/23 03:57
10/31/23 03:57
Labs
Hgb 13.6 g/dL (12.0-16.0) 10/31/23 03:57
Hct 41.0 % (37.0-47.0) 10/31/23 03:57
Plt Count 106 10^3/uL (130-400) L 10/31/23 03:57
Sodium 137 mmol/L (135-145) 10/31/23 03:57
Potassium 4.5 mmol/L (3.5-5.1) 10/31/23 03:57
BUN 23 mg/dl (7-17) H 10/31/23 03:57
Creatinine 0.7 mg/dL (0.6-1.0) 10/31/23 03:57
Glucose 84 mg/dl (70-99) 10/31/23 03:57
Troponins
10/29/23 10/29/23
10:59 11:53
Troponin I Cancelled 0.019
Vital Signs and I&O:
Vital Signs
Temp Pulse Resp BP Pulse Ox
97.8 F 84 17 191/126 97
10/31/23 07:03 10/31/23 09:06 10/31/23 06:00 10/31/23 09:06 10/31/23 06:00
Vital Signs
Temp Pulse Resp BP Pulse Ox
97.8 F 84 17 191/126 97
10/31/23 07:03 10/31/23 09:06 10/31/23 06:00 10/31/23 09:06 10/31/23 06:00
Intake & Output
10/29/23 10/30/23 10/31/23 11/01/23
06:59 06:59 06:59 06:59
Intake Total 100 / 100 100 / 100
Output Total 500 / 500
Balance -400 / -400 100 / 100
Physical Exam
Physical Exam
General: Well developed, well nourished in NAD.
Neck: Supple, no JVD, HJR, carotids +2 B/L, no bruits bilaterally.
Heart: Non displaced PMI, RRR, no murmurs, No S3, S4, no rubs.
Lungs: Clear to auscultation bilaterally, no wheeze, rhonchi, rubs bilaterally,
normal expiratory phase.
Extremities: No clubbing, cyanosis or edema bilaterally.
Neuro: Grossly nonfocal, awake, alert and oriented x3.
--- NOTE | 2023-10-31 12:07 | PTCARENOTE ---
Pt discharged home with family. Education provided. Daughter and caregiver present and express understanding.
== END 2023-10-31 12:12 | disposition home or self-care (01) | DRG 312 ==
LOC: IMU 16:56
PROVIDERS: ADMITTING PHYSICIAN Internal Medicine; CONSULT PHYSICIAN Internal Medicine Cardiovascular Disease; EMERGENCY PHYSICIAN Emergency Medicine; FAMILY PHYSICIAN Family Medicine
DX: I95.1 Orthostatic hypotension (principal); I48.20 Chronic atrial fibrillation, unspecified; I47.19 Other supraventricular tachycardia; F02.82 Dementia in other diseases classified elsewhere, unspecified severity, with psychotic disturbance; E78.00 Pure hypercholesterolemia, unspecified; G20.A1 Parkinson's disease without dyskinesia, without mention of fluctuations; I10 Essential (primary) hypertension; I49.5 Sick sinus syndrome; E03.9 Hypothyroidism, unspecified; G47.33 Obstructive sleep apnea (adult) (pediatric); R29.6 Repeated falls; N39.3 Stress incontinence (female) (male); I73.00 Raynaud's syndrome without gangrene; E55.9 Vitamin D deficiency, unspecified; D69.6 Thrombocytopenia, unspecified; R40.4 Transient alteration of awareness; R07.89 Other chest pain; R09.02 Hypoxemia; R94.31 Abnormal electrocardiogram [ECG] [EKG]; T50.995A Adverse effect of other drugs, medicaments and biological substances, initial encounter; K59.00 Constipation, unspecified; K21.9 Gastro-esophageal reflux disease without esophagitis; I25.10 Atherosclerotic heart disease of native coronary artery without angina pectoris; Z95.0 Presence of cardiac pacemaker; Z87.440 Personal history of urinary (tract) infections; Z79.899 Other long term (current) drug therapy; Z79.890 Hormone replacement therapy
CPT/HCPCS: 71045; 71046; 80048; 80053; 83735; 84484; 85025; 93005; 93288; 96374; 99285

== ENCOUNTER → 2023-11-17 10:10 | Outpatient (REF) | payer MEDICARE, BC, SELFPAY ==
[2023-11-17 11:24] LABS: Urine Albumin Negative (Neg - Trace); Urine Bilirubin Negative (Negative); Urine Character Slightly Cloudy (Clear); Urine Color Straw; Urine Glucose Negative (Negative); Urine Ketone Negative (Negative); Urine Leukocyte Negative (Negative); Urine Nitrite Negative (Negative); Urine Occult Blood Negative (Negative); Urine Urobilinogen Negative (Neg - 1+)
[2023-11-17 12:03] LABS: % Basophils 0.8 % (0-2); % Eosinophils 2.7 % (0-6); % Immature Granulocytes 0.5 % (0-0.5); % Lymphocytes 9.7 % (20.5-51.1); % Monocytes 8.5 % (1.7-9.3); % Neutrophils 77.8 % (42.2-75.2); Absolute Basophils 0.1 10^3/uL (0-0.2); Absolute Eosinophils 0.2 10^3/uL (0-0.7); Absolute Lymphocytes 0.6 10^3/uL (1.2-3.4); Absolute Monocytes 0.5 10^3/uL (0.1-0.6); Absolute Neutrophils 4.7 10^3/uL (1.4-6.5); Hemoglobin 13.3 g/dL (12.0-16.0); Mean Corp Hgb Conc. 32.4 g/dL (33.0-37.0); Mean Corpuscular Hgb 29.2 pg (27.0-31.0); Mean Corpuscular Volume 90.1 fL (81.0-99.0); Mean Platelet Volume 10.2 fL (7.4-10.4); Nucleated Red Blood Cells % 0 %; Platelet Count 141 10^3/uL (130-400); Red Blood Cell Count 4.55 10^6/uL (4.20-5.40); Red Cell Dist. Width 14.4 % (11.5-14.5)
[2023-11-17 12:23] LABS: ALT (SGPT) < 10 U/L (0-35); AST (SGOT) 46 U/L (14-36); Albumin 3.7 g/dl (3.5-5.0); Alkaline Phosphatase 157 U/L (38-126); Blood Urea Nitrogen 15 mg/dl (7-17); Calcium 9.3 mg/dl (8.4-10.2); Carbon Dioxide 24 mmol/L (22-30); Chloride 104 mmol/L (98-107); Glucose 86 mg/dl (70-99); Glycohemoglobin (HgbA1c) 5.5 % (4.0-5.6); HDL Cholesterol 85 mg/dl; LDL Cholesterol, Calculated 91 mg/dl; Potassium 3.5 mmol/L (3.5-5.1); Sodium 141 mmol/L (135-145); Total Bilirubin 0.9 mg/dl (0.2-1.3); Total Cholesterol 196 mg/dl (50-199); Total Protein 6.5 g/dl (6.3-8.2); Triglyceride 104 mg/dl (10-149); Very Low Density Lipoprotein 20 mg/dl (0-30); eGFR > 60.00
[2023-11-17 12:52] LABS: TSH Reflex To Free T4 2.55 uIU/ml (0.47-4.68)
== END ==
LOC: REG 10:10
PROVIDERS: ATTENDING PHYSICIAN Family Medicine; REFERRING PHYSICIAN Internal Medicine Hospice and Palliative Medicine
DX: N39.0 Urinary tract infection, site not specified (principal); E78.00 Pure hypercholesterolemia, unspecified; R73.01 Impaired fasting glucose; E03.9 Hypothyroidism, unspecified; D64.9 Anemia, unspecified
CPT/HCPCS: 36415; 80053; 80061; 81003; 83036; 84443; 85025

== ENCOUNTER 2024-02-25 22:11 | Inpatient (IN) | payer MEDICARE, BC, SELFPAY ==
[2024-02-25 16:33] VITALS: BP 156/100
--- NOTE | 2024-02-25 16:39 | ED.GENMED ---
ED Provider Triage
<Duarte Reed PA-C - Last Filed: 02/25/24 16:47>
-
Patient seen by provider in Triage?: Seen in Triage
88 yo female sent in due to outpatient US showing extensive RLE DVT. Essentially groin to popliteal. Also noted a L femoral vein occlusive clot. No hx of DVT> Not on thinners.
Pt reports occasional CP/SOB. Appears stable. History limited due to mental status
Will send for PE study given extensive nature of DVT
History of Present Illness
<Duarte Reed PA-C - Last Filed: 02/25/24 16:47>
General
Chief Complaint: DVT/Possible Blood Clot
Time Seen by Provider: 02/25/24 19:46
<Taylor Thompson PA-C - Last Filed: 02/25/24 21:16>
General
Source: patient and family
Exam Limitations: none
Nursing documentation reviewed up to this point in time: agreed with
History of Present Illness
History of Present Illness:
PT IS A 88 Y/O F with h/o parkinsons dementia, afib not on AC, gerd, htn, hld, pacer
here from outpatient US with extenive RLE dvt
noticed swelling by her 24 hour caregver a few days ago so her neurologist ordered the US
apparently the patient marley been having some dyspnea for a few weeks
but they didn' notice the leg until a few days ago
shehasn't been walking as much over the past few weeks because she passes out or falls a lt
Past History
<Duarte Reed PA-C - Last Filed: 02/25/24 16:47>
Past History
ED Past Medical History: Arrthythmia (Atrial fib), GERD, HTN, Hypercholesterolemia, Hypothyroidism, Other (Parkinson's Disease, Overactive bladder, vitamin D deficiency, Raynaud's, TMJ, vasovagal syncope, xerophthalmia) and Other (Thrombocytopenia
resolved 2020, urinary tract infections)
ED Past Surgical History: Cardiac (Pacemaker), Gynecological (Hysterectomy), Orthopedic (Pelvic fracture 2020), Tonsilectomy and Other (Cataract extraction, bunionectomy, bilateral eyebrow lifts)
Patient has exhibited threatening behavior?: No
PSI?: No
Social History
Tobacco: Non-smoker
Alcohol: None
Drug: None
Personal:
Living: alone (Has 14/09 caregiver)
Employment: Retired
Family History
Family History: Other (review and non-contributory)
Phy Exam
<Taylor Thompson PA-C - Last Filed: 02/25/24 21:16>
Physical Exam
Physical Exam:
GENERAL: Alert , dementia, mild tachypnea, pleasant
EYE: pupils equal and reactive
NECK: Supple
ENT: o/p clr, mmm.
CARDIAC: Regular rate and rhythm .
LUNGS: Clear breath sounds bilaterally, no acute respiratory distress, no wheezes/rales/rhonchi
ABDOMEN: Soft, without focal tenderness, no r/g, no cvat, normal bowel sounds
NEUROLOGICAL: Awake; not oriented; severe dementia
SKIN: Warm and dry, skin intact.
MUSCULOSKELETAL: Asymmetric edema right lower extremity, mottled appearance, not cold but pale and slightly purpleish foot
PALPABLE PULSE
PSYCH: dementi
Course
<Duarte Reed PA-C - Last Filed: 02/25/24 16:47>
Orders/Labs/Results
Orders:
Orders
02/25/24 16:38
CT Chest PE Study Urgent
Comment:
Reason For Exam: CP/SOB, extensive RLE DVT
02/25/24 16:46
Comprehensive Metabolic Panel Urgent
02/25/24 20:00
Electrocardiogram (*1) Urgent
Reason for Study: Shortness of Breath
EKG- Treatment ONCE
02/25/24 20:11
NT-proBNP Urgent
PTT Urgent
Prothrombin Time Urgent
Troponin I Urgent
02/25/24 20:[address] Non Medication Order As Directed
Physician Order: PTT 6 hours after initial start of Heparin infusion
02/25/24 20:38
Heparin 2,300 units IV PRN PRN
Heparin 4,500 units IV PRN PRN
02/25/24 20:39
Heparin 5,000 units .ROUTE .STK-MED ONE
02/25/24 20:45
Heparin 39504 Units/250 ml 25,000 units in 250 ml IV PER PROTOCOL
Weight to be used for heparin protocol in kilograms (kg):: 56.6
Protocol:: DVT/PE
PTT Goal Range to be used:: PTT 73 to 111 seconds
Order type:: Initial
INITIAL Infusion Dose (UNITS/KG/hr) & then follow protocol:: 18 units/kg/hr
Infusion Dose in UNITS/hr & then follow protocol (UNITS/hr):: 1,000
INFUSION RATE in mL/hr & then follow protocol (mL/hr):: 10
For DVT/PE algorithm, re-bolus for low PTT?: Yes
PTT less than or equal to 64 seconds:: Re-bolus 80 units/kg (max 10,000units). Increase by 200 units/hr
(+ 2mL/hr)
PTT 64.1 to 72.9 seconds:: Re-bolus 40 units/kg (max 5,000 units). Increase by 100 units/hr
(+ 1mL/hr)
PTT 73 to 111 seconds:: Target Range. No change in rate.
PTT 111.1 to 130.9 seconds:: Decrease rate by 100 units/hr (- 1 mL/hr)
PTT 131 to 199.9 seconds:: HOLD for 1 hr. Then decrease by 200 units/hr (- 2mL/hr)
PTT greater than or equal to 200 seconds:: HOLD for 2 hrs & Notify Provider. Then decrease by 200 units/hr
(- 2mL/hr)
Lab follow-up:: Each change, PTT q6h until 2 consecutive are therapeutic. Then
PTT daily.
Abnormal Lab Results
02/25/24
16:46
BUN 19 H mg/dl
(7-17)
Total Protein 5.7 L g/dl
(6.3-8.2)
Albumin 3.0 L g/dl
(3.5-5.0)
02/25/24 16:46
Vital Signs
Initial and Last Documented VS:
Initial Vital Signs
Temp Pulse Resp BP Pulse Ox
36.7 C 77 18 156/100 98
02/25/24 16:33 02/25/24 16:33 02/25/24 16:33 02/25/24 16:33 02/25/24 16:33
Last Documented Vital Signs
Temp Pulse Resp BP Pulse Ox
36.7 C 75 13 199/115 100
02/25/24 16:33 02/25/24 20:06 02/25/24 20:06 02/25/24 20:06 02/25/24 20:06
<Taylor Thompson PA-C - Last Filed: 02/25/24 21:16>
Orders/Labs/Results
Orders:
Orders
02/25/24 16:38
CT Chest PE Study Urgent
Comment:
Reason For Exam: CP/SOB, extensive RLE DVT
02/25/24 16:46
Comprehensive Metabolic Panel Urgent
02/25/24 20:00
Electrocardiogram (*1) Urgent
Reason for Study: Shortness of Breath
EKG- Treatment ONCE
02/25/24 20:11
NT-proBNP Urgent
PTT Urgent
Prothrombin Time Urgent
Troponin I Urgent
02/25/24 20:[address] Non Medication Order As Directed
Physician Order: PTT 6 hours after initial start of Heparin infusion
02/25/24 20:38
Heparin 2,300 units IV PRN PRN
Heparin 4,500 units IV PRN PRN
02/25/24 20:39
Heparin 5,000 units .ROUTE .STK-MED ONE
02/25/24 20:45
Heparin 35938 Units/250 ml 25,000 units in 250 ml IV PER PROTOCOL
Weight to be used for heparin protocol in kilograms (kg):: 56.6
Protocol:: DVT/PE
PTT Goal Range to be used:: PTT 73 to 111 seconds
Order type:: Initial
INITIAL Infusion Dose (UNITS/KG/hr) & then follow protocol:: 18 units/kg/hr
Infusion Dose in UNITS/hr & then follow protocol (UNITS/hr):: 1,000
INFUSION RATE in mL/hr & then follow protocol (mL/hr):: 10
For DVT/PE algorithm, re-bolus for low PTT?: Yes
PTT less than or equal to 64 seconds:: Re-bolus 80 units/kg (max 10,000units). Increase by 200 units/hr
(+ 2mL/hr)
PTT 64.1 to 72.9 seconds:: Re-bolus 40 units/kg (max 5,000 units). Increase by 100 units/hr
(+ 1mL/hr)
PTT 73 to 111 seconds:: Target Range. No change in rate.
PTT 111.1 to 130.9 seconds:: Decrease rate by 100 units/hr (- 1 mL/hr)
PTT 131 to 199.9 seconds:: HOLD for 1 hr. Then decrease by 200 units/hr (- 2mL/hr)
PTT greater than or equal to 200 seconds:: HOLD for 2 hrs & Notify Provider. Then decrease by 200 units/hr
(- 2mL/hr)
Lab follow-up:: Each change, PTT q6h until 2 consecutive are therapeutic. Then
PTT daily.
Abnormal Lab Results
02/25/24
16:46
BUN 19 H mg/dl
(7-17)
Total Protein 5.7 L g/dl
(6.3-8.2)
Albumin 3.0 L g/dl
(3.5-5.0)
02/25/24 16:46
Vital Signs
Initial and Last Documented VS:
Initial Vital Signs
Temp Pulse Resp BP Pulse Ox
36.7 C 77 18 156/100 98
02/25/24 16:33 02/25/24 16:33 02/25/24 16:33 02/25/24 16:33 02/25/24 16:33
Last Documented Vital Signs
Temp Pulse Resp BP Pulse Ox
36.7 C 75 13 199/115 100
02/25/24 16:33 02/25/24 20:06 02/25/24 20:06 02/25/24 20:06 02/25/24 20:06
<Taylor Thompson PA-C - Last Filed: 02/25/24 21:16>
MDM/Problems Addressed
Differential Diagnosis Includes:
ddvt/pe
MDM/Problems Addressed:
vir[place]ia melendez 88 y/o F with parkinsons, severely demented, 24 hour caregiver
afib not anticogulated due to frequent falls/syncope
caregiver noticed rapid breathing intermittently for a few weeks but only a few days of RLE swelling
outpatient us shows extensive clot from right groin to right calf; and also thrombus in the L common femoral vein as well
her CT shows chronic appearing PEs in right and left pulmonary arteries; no central PE; maybe pulm infarct in LLL
her RLE is purplish/mottled in appearance, evonne around her nkee and ankle/foot; there is a palpable pulse;
i spoke with both pulmonary dr. lenz and vascular dr. curry
both agree: IV heparin
did speak with daughteR LUL
she is full code as of now
<Taylor Thompson PA-C - Last Filed: 02/25/24 21:16>
*Critical Care Note
Total Time (30-74mins, 75-104mins- exclusive of procedures): Not Applicable
ED Attending Note
<Duarte Reed PA-C - Last Filed: 02/25/24 16:47>
-
Portions of this chart may have been created with voice recognition software.� Occasional wrong word or��sound alike� substitutions may have occurred due to the inherent limitations of voice recognition software.
Discharge Plan
Departure
Patient Disposition: Admit
Date of Disposition: 02/25/24
Time of Disposition: 20:33
Admit to: IMU
Presentation/result/management discussed w/ accepting MD/DO: Hospitalist
Condition: Fair
Covid-19: Not Applicable
Discharge Problem:
DVT (deep venous thrombosis), Pulmonary embolism on right
Prescriptions:
No Action
rosuvastatin 5 MG tablet
5 mg PO QPM
rivastigmine 1 EACH patch 24 hour
13.3 mg transdermal DAILY
memantine 10 MG tablet
5 mg PO BID
Rx Instructions:
per caregiver, pt is being weaned off this medication - to take 5mg BID this week
levothyroxine [Synthroid] 75 mcg Tablet
75 mcg PO DAILY@0700
diltiazem HCl 120 MG capsule,extended release 24hr
120 mg PO DAILY
carbidopa-levodopa 25-100 mg tablet
3 tab PO QID
acetaminophen 500 mg Tablet
500 mg PO Q6HPRN PRN (Reason: mild pain)
melatonin 5 mg Tablet
5 - 10 mg PO HS
Thc Gummies
1 gummy PO HSPRN PRN (Reason: sleep)
sotalol 80 MG tablet
80 mg PO BID
midodrine 2.5 mg Tablet
5 mg PO TID
diazepam 2 mg Tablet
2 - 6 mg PO PRN PRN (Reason: agitation)
Rx Instructions:
pt can have 6 mg at one time or spread out over 4-6 hours
cholecalciferol (vitamin D3) [Vitamin D3] 50 mcg (2,000 unit) Capsule
50 mcg PO DAILY
hydralazine 10 mg tablet
10 mg PO QID PRN (Reason: for sbp >200)
Referrals:
Jostin De La O Jr., DO [Family Provider] -
Interventions
Interventions:
*Risk Screen - Suicide Last Done: 02/25/24 20:14
*General Assessment Last Done: 02/25/24 20:17
*Neglect/Abuse Screening Last Done: 02/25/24 20:14
*ED COVID-19 Vaccine History Last Done: 02/25/24 20:18
Discharge Date and Time
Print Language: TAMAZIGHT
[2024-02-25 17:24] LABS: ALT (SGPT) < 10 U/L (0-35); AST (SGOT) 27 U/L (14-36); Alkaline Phosphatase 92 U/L (38-126); Blood Urea Nitrogen 19 mg/dl (7-17); Calcium 8.8 mg/dl (8.4-10.2); Carbon Dioxide 26 mmol/L (22-30); Chloride 103 mmol/L (98-107); Glucose 90 mg/dl (70-99); Potassium 4.1 mmol/L (3.5-5.1); Sodium 137 mmol/L (135-145); Total Bilirubin 0.8 mg/dl (0.2-1.3); Total Protein 5.7 g/dl (6.3-8.2); eGFR > 60.00
[2024-02-25 20:04] VITALS: BMI 21.4
[2024-02-25 20:06] VITALS: BP 199/115
--- NOTE | 2024-02-25 20:35 | EDRN ---
called pharmacy to verify heparin
[2024-02-25 20:39] LABS: APTT 33.2 Sec (23.4-35.0)
[2024-02-25 20:45] LABS: NT-proBNP 3280 pg/ml; Troponin I 0.016 ng/ml
[2024-02-25] MEDS: HEPARIN 4500 UNITS IV (20:54)
[2024-02-25] MEDS: HEPARIN 25000 UNITS/250 ML IV (20:55)
[2024-02-25 21:00] VITALS: BP 201/93
[2024-02-25 21:03] LABS: INR 1.04; PT 13.9 Sec (11.4-14.6)
--- NOTE | 2024-02-25 21:25 | HPS.HSE ---
Family Physician
-
Family Physician: Jostin De La O Jr.
Chief Complaint
-
Lower Extremity Edema
History of Present Illness
Patient is an 88 y/o female past medical history of Parkinson's Disease, Dementia, and Permanent Atrial Fibrillation not on anticoagulation who presents with lower extremity edema. Patient had an outpatient ultrasound today which revealed extensive
right lower extremity DVT, and she was referred to the emergency department for evaluation. Additional history is obtained from patient's live-in housekeeper child care at bedside who notes patient has appears more short of breath recently, and has also had
increasing number of syncopal episodes. CT scan in ED revealed severe chronic bilateral pulmonary emboli with possible pulmonary infarct. Hospitalist group was asked to evaluate the patient for admission to the hospital
Medical History
Past Medical History
Past Medical History: Reports Other
Additional Past Medical History:
Permanent Atrial Fibrillation
Orthostatic Hypotension
Hyperlipidemia
Hypothyroidism
Parkinson's Disease
Dementia
Overactive Bladder
GERD
Past Surgical History: Reports Other
Additional Past Surgical History:
Pacemaker
Hysterectomy
Pelvic fracture
Tonsillectomy
Cataract extraction
Bunionectomy
Social History
Tobacco: Non-smoker
Alcohol: None
Drug: None
Personal: Single
Living: Other (Lives in home with Live-In caregiver)
Family History
Family History: Not pertinent
Allergies / Home Medications
Allergies reflects when Allergies were last updated in [facility].
Home Medications with original date entered in [facility]
Allergy/Medication List:
Allergies
Allergy/AdvReac Type Severity Reaction Status Date / Time
bisacodyl Allergy Nausea Verified 02/25/24 20:24
[From Dulcolax (bisacodyl)]
Home Medications
rosuvastatin 5 mg tablet 5 mg PO QPM High cholesterol 01/12/20
rivastigmine 9.5 mg/24 hour transdermal patch 13.3 mg transdermal DAILY Neurological Condition 06/15/21
memantine 10 mg tablet 5 mg PO BID dementia 06/23/21
levothyroxine 75 mcg tablet (Synthroid) 75 mcg PO DAILY@0700 Thyroid 02/11/22
carbidopa 25 mg-levodopa 100 mg tablet 3 tab PO QID Neurological Condition 05/04/22
diltiazem HCl 120 mg capsule,extended release 24 hr 120 mg PO DAILY Blood Pressure 05/04/22
acetaminophen 500 mg tablet 500 mg PO Q6HPRN PRN mild pain 08/15/22
Thc Gummies 1 gummy PO HSPRN PRN sleep 05/02/23
melatonin 5 mg tablet 5 - 10 mg PO HS 05/02/23
sotalol 80 mg tablet 80 mg PO BID Arrhythmia 05/02/23
midodrine 2.5 mg tablet 5 mg PO TID Blood Pressure 07/14/23
cholecalciferol (vitamin D3) 50 mcg (2,000 unit) capsule (Vitamin D3) 50 mcg PO DAILY 02/25/24
diazepam 2 mg tablet 2 - 6 mg PO PRN PRN agitation 02/25/24
hydralazine 10 mg tablet 10 mg PO QID PRN for sbp >200 02/25/24
Review of Systems
-
Unable to obtain full review of systems at this time due to: Dementia
Physical Exam
Vital Signs
Vital Signs
Temp Pulse Resp BP Pulse Ox
98.1 F 75 13 199/115 100
02/25/24 16:33 02/25/24 20:06 02/25/24 20:06 02/25/24 20:06 02/25/24 20:06
Physical Exam
General: Well Developed, Well Nourished and Other (Slight conversational dyspnea)
HEENT: Anicteric and Moist mucous membranes
Respiratory: Clear and Non Labored Respirations
Cardiac: S1/S2 and Regular Rhythm
GI: Soft and Non Tender
Rectal: Deferred by Provider
Musculoskeletal: No Clubbing, No Cyanosis and Other (+1 edema RLE)
Skin: Warm and Dry
Neuro: Awake, Alert and Nonfocal/grossly intact
Psych: Calm and Confused
Laboratory Results
-
02/25/24 16:46
Laboratory Results
PT 13.9 Sec (11.4-14.6) 02/25/24 20:11
INR 1.04 02/25/24 20:11
APTT 33.2 Sec (23.4-35.0) 02/25/24 20:11
Total Bilirubin 0.8 mg/dl (0.2-1.3) 02/25/24 16:46
AST 27 U/L (14-36) 02/25/24 16:46
ALT < 10 U/L (0-35) 02/25/24 16:46
Alkaline Phosphatase 92 U/L (38-126) 02/25/24 16:46
Troponin I 0.016 ng/ml 02/25/24 20:11
Data Reviewed
-
CT Scan: Report Reviewed by me
Ultrasound: Report Reviewed by me
Lab Data: Labs Reviewed by me
Impression/Plan
-
Extensive RLE DVT with Bilateral Pulmonary Emboli
-Vascular and Pulmonary consulted by ED
-Continue heparin drip
-Check Echo
Permanent Atrial Fibrillation
-Patient previously not on anticoagulation due to fall risk
-Continue diltiazem and sotalol
Orthostatic Hypotension
-Continue midodrine
Hyperlipidemia
-Continue Crestor
Hypothyroidism
-Continue levothyroxine
Parkinson's Disease
-Continue carbidopa/levodopa and rivastigmine
Dementia
-Caregiver notes patient does sun-down
-Continue diazepam as prior to admission
-Patient is weaning off memantine
Code Status: Full Code
--- NOTE | 2024-02-25 21:55 | W.PN.UPDATE ---
Update Note
Progress Note Update
This note serves as an addendum to the H&P by paraffiner VIVIANA
June KRISTAK
HPI
88F HX Parkinson associated advanced dementia, HX Prx AF, not on AC due to HX Falls and syncope, postura hypotension, PPM implant , HTN sen at ER:
- outpatient US with extensive RLE dvt
- swelling by her 24 hour pe caregiver a few days ago so her neurologist ordered the US
- has been having some dyspnea for a few weeks
- she hasn't been walking as much over the past few weeks because she passes out or falls a lt
PHX; see above
Vital Signs
Temp Pulse Resp BP Pulse Ox
98.1 F 75 13 199/115 100
02/25/24 16:33 02/25/24 20:06 02/25/24 20:06 02/25/24 20:06 02/25/24 20:06
PE
GENERAL: Alert , dementia, mild tachypnea, pleasant
HEENT; unremarkable
Neck ; supple
Resp: CTA bilaterally, no acute respiratory distress, no wheezes/rales/rhonchi
ABDOMEN: Soft, without focal tenderness, no r/g, no cvat, normal bowel sounds
NEUROLOGICAL: Awake; not oriented; severe dementia
SKIN: Warm and dry, skin intact.
MUSCULOSKELETAL: Asymmetric edema right lower extremity, mottled appearance, not cold but pale and slightly purpleish foot
PALPABLE PULSE
PSYCH: dementia
PE
Gen:pleasantly confused. mild tachypnea
HEENT: anicteric
Neck: supple
Lungs: symmetric AE
Cor: irregular S1 S2
Abdomen: soft abdomen
ROLL SCALE MAN: pleasantly confused
MS: Both Angeli edema
Psych: limited due to dementia
Abnormal Lab Results
02/25/24
16:46
BUN 19 H
Total Protein 5.7 L
Albumin 3.0 L
OP Rt Angeli US
Extensive DVT of the right lower extremity from the groin to including the calf.
CTC PE
1. Mild acute pulmonary arterial embolic disease.
2. SEVERE CHRONIC BILATERAL PULMONARY ARTERIAL EMBOLIC DISEASE.
3. Small subpleural airspace consolidations in the lateral basilar segments of both lower lobes. Diagnostic possibilities are (1) pulmonary infarcts or (2) scarring/subsegmental atelectasis.
4. Pulmonary arterial hypertension with severe distention of the left pulmonary artery.
5. Severe enlargement of the left atrium.
6. Chronic granulomatous disease infection.
7. Moderate elevation of the right hemidiaphragm.
Last hospitalist admission: Date of Admission: 10/29/23 - Date of Discharge: 10/31/23
ASSESSMENT & PLAN
Acute Rt Angeli DVT
Associated acute on chronic PE with pulmonary infarcts o scarring/subsegmental atelectasis.
- Heparin gtt
- ECHO
- Pul consult
Chr HX
HX vasovagal Syncope
DC PPM impnat
HX Perm AF
HX Thrombocytopenia
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
Chronic atrial fibrillation, not anticoagulant
Hypothyroidism on LT4
Parkinson's disease
DVT prophylaxis: Heparin gtt
Code: Full code
IP TLM
[2024-02-25 22:00] VITALS: BP 176/113
[2024-02-25 23:00] VITALS: BP 180/99
[2024-02-25 23:49] VITALS: BP 173/99
[2024-02-25 23:50] VITALS: BMI 19.9
[2024-02-26] VITALS (8 sets, daily range): BP systolic 127–163; BP diastolic 76–100; PULSE 77; O2SAT 97; BMI 19.9
[2024-02-26] MEDS: SINEMET 25-100 3 TABLET PO ×5 (00:26→21:41)
[2024-02-26] MEDS: MELATONIN 10 MG PO ×2 (00:27→21:35)
[2024-02-26] MEDS: ProAmatine PO ×2 (01:44→17:43)
[2024-02-26 04:05] LABS: INR 1.12; PT 14.8 Sec (11.4-14.6)
[2024-02-26 04:58] LABS: APTT 141.1 Sec (23.4-35.0)
--- NOTE | 2024-02-26 05:00 | PTCARENOTE ---
Addendum entered by Angelica Kowalski RN 02/26/24 08:03:
Pt arrived with rivastigmine patch on Left shoulder.
Original Note:
Pt arrived to floor from ED via stretcher approx 2345 and transferred over to bed by staff. Pt aox3 but drowsy. Most of pts personal effects taken home by caregiver according to transport. Pt on heparin gtt at 100 units/hr. BLLE cool to touch, right
with slight edema. Both legs bruised, the right with some mottling and a purplish hue. pt with no complaints. By end of shift Pt legs later warmed up and returned to a pinker coloring. Pt states she can feel the difference.
[2024-02-26 08:32] LABS: Hematocrit 28.5 % (37.0-47.0); Hemoglobin 9.3 g/dL (12.0-16.0); Mean Corp Hgb Conc. 32.6 g/dL (33.0-37.0); Mean Corpuscular Hgb 29.7 pg (27.0-31.0); Mean Corpuscular Volume 91.1 fL (81.0-99.0); Mean Platelet Volume 9.9 fL (7.4-10.4); Platelet Count 164 10^3/uL (130-400); Red Blood Cell Count 3.13 10^6/uL (4.20-5.40); Red Cell Dist. Width 14.3 % (11.5-14.5); White Blood Cell Count 5.8 10^3/uL (4.8-10.8)
[2024-02-26 09:13] LABS: Blood Urea Nitrogen 15 mg/dl (7-17); Estimated Creatinine Clearance 57 ml/min; Glucose 80 mg/dl (70-99); Sodium 136 mmol/L (135-145); eGFR > 60.00
[2024-02-26 09:14] LABS: Calcium 8.5 mg/dl (8.4-10.2); Carbon Dioxide 26 mmol/L (22-30); Chloride 103 mmol/L (98-107)
--- NOTE | 2024-02-26 09:36 | W.PN.VS ---
Today's Communication / Plan
-
hep gtt
protect heals
Assessment/Plan
-
RLE DVT
- patient minimally ambulatoruy
- anticoagulation
- hem or primary to manage
- compression stocking to help swelling
- heal protectors when patient in bed
- call with other questions
- no acute vascular intervention needed.
Subjective Data
-
Date of Service: February 26, 2024
RLE DVT by ultrasound
Denies pain
min swelling
Objective Data
-
Vital Signs
Temp Pulse Resp BP Pulse Ox
97.4 F 75 16 128/76 92
02/25/24 23:49 02/26/24 03:00 02/25/24 23:49 02/26/24 03:00 02/25/24 23:49
Intake and Output
02/25/24 02/26/24 02/27/24
06:59 06:59 06:59
Other:
How many times incontinent 1
SATURATED amount urine
Lab Results
02/26/24 07:32
02/26/24 07:32
Calcium 8.5 mg/dl (8.4-10.2) 02/26/24 07:32
Total Bilirubin 0.8 mg/dl (0.2-1.3) 02/25/24 16:46
AST 27 U/L (14-36) 02/25/24 16:46
ALT < 10 U/L (0-35) 02/25/24 16:46
Alkaline Phosphatase 92 U/L (38-126) 02/25/24 16:46
Total Protein 5.7 g/dl (6.3-8.2) L 02/25/24 16:46
Albumin 3.0 g/dl (3.5-5.0) L 02/25/24 16:46
Physical Exam
-
rrr
ctab
nt,nd,soft
calf soft bilat
1+ edema bilat
no wounds
feet warm
Duplex: RLE Acute DVT
[2024-02-26] MEDS: CARDIZEM CD 120 MG PO (09:52)
[2024-02-26] MEDS: SYNTHROID 75 MCG PO (09:52)
[2024-02-26] MEDS: BETAPACE 80 MG PO ×2 (09:52→21:36)
[2024-02-26] MEDS: EXELON PATCH 13.3 MG TRANSDERM (09:53)
[2024-02-26] MEDS: ProAmatine 5 MG PO ×2 (09:53→13:31)
[2024-02-26] MEDS: NAMENDA 5 MG PO ×2 (09:55→21:40)
[2024-02-26 13:59] LABS: APTT 52.9 Sec (23.4-35.0)
--- NOTE | 2024-02-26 14:04 | W.PN.HOSP.TC ---
Addendum entered and electronically signed by Duke Monhaan MD 02/26/24 15:06:
Updated daughter over the phone in details.
Original Note:
Today's Communication/Plan
-
hep gtt
monitor HR/ and o2 status closely
speech eval
monitor on tele
Assessment / Plan
Assessment / Plan
General: Well Developed, Well Nourished and Other (Slight conversational dyspnea)
HEENT: Anicteric and Moist mucous membranes
Respiratory: Clear and Non Labored Respirations
Cardiac: S1/S2 and Regular Rhythm
GI: Soft and Non Tender
Rectal: Deferred by Provider
Musculoskeletal: No Clubbing, No Cyanosis and Other (+1 edema RLE)
Skin: Warm and Dry
Neuro: Awake, Alert and Nonfocal/grossly intact
Psych: Calm and Confused
Extensive RLE DVT with Bilateral Pulmonary Emboli
-Vascular and Pulmonary consulted by ED
-Continue heparin drip. Eventual transition to DOAC
-Check Echo
Dysphagia
-speech eval
Permanent Atrial Fibrillation
-Continue diltiazem and sotalol. monitor on tele.
Orthostatic Hypotension
-Continue midodrine
Hyperlipidemia
-Continue Crestor
Hypothyroidism
-Continue levothyroxine
Parkinson's Disease
-Continue carbidopa/levodopa and rivastigmine
Dementia
-Caregiver notes patient does sun-down
-Continue diazepam as prior to admission
-Patient is weaning off memantine
Code Status: Full Code
Anticipated Discharge: > 48 hours
Subjective/Interval History
-
Date of Service: February 26, 2024
Per RN, trouble with shallowing
denies right leg pain
Objective Data
-
Labs:
Laboratory Results
02/26/24 02/26/24 02/26/24
03:36 07:32 13:10
WBC 5.8
Hgb 9.3 L
Hct 28.5 L
Plt Count 164
PT 14.8 H
INR 1.12
APTT 141.1 H 52.9 H
Sodium 136
Potassium 4.0
Chloride 103
Carbon Dioxide 26
BUN 15
Creatinine 0.6
Glucose 80
Calcium 8.5
Vital Signs:
Vital Signs
Temp Pulse Resp BP Pulse Ox
97.4 F 76 16 130/88 100
02/26/24 11:00 02/26/24 11:00 02/26/24 11:00 02/26/24 11:00 02/26/24 11:00
[2024-02-26] MEDS: HEPARIN 4500 UNITS IV (14:27)
--- NOTE | 2024-02-26 16:01 | PTOTSP ---
Speech Therapy Evaluation:
Pt presents with oropharyngeal swallow that is likely at/near baseline. Pt remains at an increased risk of aspiration due to chronic risk factors including Parkinson's and advanced dementia. Pt also at risk for post-prandial aspiration given hx of
GERD and hiatal hernia. No s/sx of aspiration on evaluation with baseline diet of regular solids and thin liquids, however PO trials limited d/t lethargy.
Recommend:
1. Continue regular solids and thin liquids
2. Medications as tolerated
3. Close supervision/assistance with PO intake
4. General aspiration and reflux precautions
5. Hold PO if LYNETTE not supportive of oral intake
6. ST to follow - likely brief
--- NOTE | 2024-02-26 16:41 | CON.PUL ---
Consultation
Consultation Request
Date/Time Consultation Requested: 02/26/2024
Date/Time Consultation Performed: 02/26/2024
Requesting Provider: SHERRI Castellano
Performing Provider: Dr. Dashawn Wu
Reason for Consultation: Acute on chronic pulmonary embolism/DVT
Medical History
-
History of Present Illness:
88-year-old woman with past medical history significant for Parkinson disease, dementia, permanent atrial fibrillation not on anticoagulation who presented with lower extremity edema. Patient had outpatient ultrasound which revealed extensive right
lower extremity DVT and she was referred to the emergency room for evaluation. Patient unable to provide history. Appears apparently more short of breath recently. Also increasing number syncopal episode.
CT scan in the ED revealed severe chronic bilateral pulmonary embolism with possible pulmonary infarct.
Past Medical History
Past Medical History: Other (Conditions present prior admission)
Social History
Tobacco: Non-smoker
Alcohol: None
Drug: None
Living: Other (Home with caregiver)
Family History
Family History: Unable to Obtain
Allergies / Home Medications
Allergies
Allergy/AdvReac Type Severity Reaction Status Date / Time
bisacodyl Allergy Nausea Verified 02/25/24 20:24
[From Dulcolax (bisacodyl)]
Home Medications
�Medication �Instructions �Recorded �Confirmed �Last Taken �Type
rosuvastatin 5 mg tablet 5 mg PO QPM High cholesterol 01/12/20 02/25/24 10/28/23 History
rivastigmine 9.5 mg/24 hour 13.3 mg transdermal DAILY 06/15/21 02/25/24 10/29/23 History
transdermal patch Neurological Condition
memantine 10 mg tablet 5 mg PO BID dementia 06/23/21 02/25/24 10/29/23 History
levothyroxine 75 mcg tablet 75 mcg PO DAILY@0700 Thyroid 02/11/22 02/25/24 10/29/23 History
(Synthroid)
carbidopa 25 mg-levodopa 100 mg 3 tab PO QID Neurological Condition 05/04/22 02/25/24 10/28/23 History
tablet
diltiazem HCl 120 mg 120 mg PO DAILY Blood Pressure 05/04/22 02/25/24 10/29/23 History
capsule,extended release 24 hr
acetaminophen 500 mg tablet 500 mg PO Q6HPRN PRN mild pain 08/15/22 02/25/24 Unknown History
Thc Gummies 1 gummy PO HSPRN PRN sleep 05/02/23 02/25/24 10/28/23 History
melatonin 5 mg tablet 5 - 10 mg PO HS Sleep 05/02/23 02/25/24 10/28/23 History
sotalol 80 mg tablet 80 mg PO BID Arrhythmia 05/02/23 02/25/24 10/29/23 History
midodrine 2.5 mg tablet 5 mg PO TID Blood Pressure 07/14/23 02/25/24 10/29/23 History
cholecalciferol (vitamin D3) 50 50 mcg PO DAILY Supplement 02/25/24 02/25/24 Unknown History
mcg (2,000 unit) capsule (Vitamin
D3)
diazepam 2 mg tablet 2 - 6 mg PO PRN PRN agitation 02/25/24 02/25/24 Unknown History
hydralazine 10 mg tablet 10 mg PO QID PRN for sbp >200 02/25/24 02/25/24 Unknown History
Review of Systems
-
Unable to Obtain full review of systems at this time due to: Dementia
Vitals / Labs / Diagnostic Testing
Vital Signs
Temp Pulse Resp BP Pulse Ox
97.5 F 76 16 154/88 96
02/26/24 15:00 02/26/24 15:00 02/26/24 15:00 02/26/24 15:00 02/26/24 15:00
Lab Data
02/26/24 07:32
02/26/24 07:32
Laboratory Results
01/03/25 01/04/25 01/04/25
20:11 03:36 13:10
PT 13.9 14.8 H
INR 1.04 1.12
APTT 33.2 141.1 H 52.9 H
Diagnostic Testing:
Physical Exam
-
HEENT: Normocephalic
Cardiovascular: S1/S2
Respiratory: Non-Labored Respirations
GI: Non Distended
Neurology: Other (Unable to provide history, Parkinson disease, dementia.)
Skin: Warm
General: Comfortable
Assessment
-
Acute/chronic pulmonary embolism
DVT right lower extremity extensive
Orthostatic hypotension
Conditions present prior admission:
Hypothyroidism
Hyperlipidemia
Parkinson disease/dementia
Overactive bladder
GERD
Permanent atrial fibrillation-not on anticoagulation
Pacemaker in place
Catheter extraction
Assessment and plan:
CT chest with acute/subacute and chronic severe bilateral pulmonary embolic disease. Small subpleural air space consolidations in both lower lobes possibly pulmonary infarcts. Pulmonary arterial hypertension suspected. Severe enlargement of the
left atrium. Chronic granulomatous disease
Moderate elevation of the right hemidiaphragm.
-
Lower extremity ultrasound 02/25/2024: Extensive DVT of the right lower extremity from the groin including the calf. DVT in the right groin.
-
Patient not hypotensive, not requiring oxygen supplementation. Minimally ambulatory.
Does not qualify for invasive interventions due to dementia and lack of hemodynamic instability
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
Vascular recommended only anticoagulation without any vascular surgery interventions at this point.
Continue heparin drip for today and okay to transition to oral anticoagulation if the patient is deemed candidate.
Eventual echocardiogram-likely has pulmonary hypertension. Patient does not qualify for pulmonary vasodilators or surgical thrombectomy.
It is noted that she has a history of atrial fibrillation but not on anticoagulation for unclear reasons.
-
Goals of care should be addressed, patient is on palliative care
With frequent falling son who I spoke to at the bedside on 02/26/2024 is contemplating hospice care. Okay with anticoagulation but they will decide in the outpatient setting if this is going to be a long-term thing.
-
Monitor for bleeding.
[2024-02-26] MEDS: CRESTOR 5 MG PO (17:42)
[2024-02-26 21:21] LABS: Glucose - Point of Care 106 mg/dl (70-99)
[2024-02-26 22:21] LABS: APTT 90.2 Sec (23.4-35.0)
[2024-02-27] MEDS: HEPARIN 25000 UNITS/250 ML IV (01:37)
[2024-02-27 03:53] VITALS: BP 163/95
[2024-02-27] MEDS: SYNTHROID 75 MCG PO (05:08)
[2024-02-27 05:43] LABS: Hematocrit 31.7 % (37.0-47.0); Hemoglobin 10.5 g/dL (12.0-16.0); Mean Corp Hgb Conc. 33.1 g/dL (33.0-37.0); Mean Corpuscular Hgb 30.2 pg (27.0-31.0); Mean Corpuscular Volume 91.1 fL (81.0-99.0); Mean Platelet Volume 9.9 fL (7.4-10.4); Platelet Count 175 10^3/uL (130-400); Red Blood Cell Count 3.48 10^6/uL (4.20-5.40); Red Cell Dist. Width 14.3 % (11.5-14.5); White Blood Cell Count 6.2 10^3/uL (4.8-10.8)
[2024-02-27 05:44] LABS: APTT 62.4 Sec (23.4-35.0)
[2024-02-27 05:56] LABS: ALT (SGPT) < 10 U/L (0-35); AST (SGOT) 22 U/L (14-36); Albumin 3.1 g/dl (3.5-5.0); Alkaline Phosphatase 91 U/L (38-126); Blood Urea Nitrogen 15 mg/dl (7-17); Calcium 8.7 mg/dl (8.4-10.2); Carbon Dioxide 28 mmol/L (22-30); Chloride 102 mmol/L (98-107); Estimated Creatinine Clearance 57 ml/min; Glucose 93 mg/dl (70-99); Potassium 4.1 mmol/L (3.5-5.1); Sodium 136 mmol/L (135-145); Total Bilirubin 0.5 mg/dl (0.2-1.3); Total Protein 5.8 g/dl (6.3-8.2); eGFR > 60.00
[2024-02-27] MEDS: HEPARIN 4500 UNITS IV (06:13)
[2024-02-27] MEDS: EXELON PATCH 13.3 MG TRANSDERM (08:14)
[2024-02-27] MEDS: BETAPACE 80 MG PO (08:14)
[2024-02-27] MEDS: NAMENDA 5 MG PO (08:14)
[2024-02-27] MEDS: CARDIZEM CD 120 MG PO (08:15)
[2024-02-27] MEDS: SINEMET 25-100 3 TABLET PO (08:15)
[2024-02-27] MEDS: ProAmatine PO (08:20)
[2024-02-27 09:03] VITALS: BP 160/99
[2024-02-27 10:35] VITALS: BP 171/109; PULSE 75; O2SAT 99
--- NOTE | 2024-02-27 12:02 | W.PN.HOSP.TC ---
Today's Communication/Plan
-
Po eliquis
dc home on Hospice
Assessment / Plan
Assessment / Plan
General: Well Developed, Well Nourished and Other (Slight conversational dyspnea)
HEENT: Anicteric and Moist mucous membranes
Respiratory: Clear and Non Labored Respirations
Cardiac: S1/S2 and Regular Rhythm
GI: Soft and Non Tender
Rectal: Deferred by Provider
Musculoskeletal: No Clubbing, No Cyanosis and Other (+1 edema RLE)
Skin: Warm and Dry
Neuro: Awake, Alert and Nonfocal/grossly intact
Psych: Calm and Confused
Extensive RLE DVT with Bilateral acute on chronic pulmonary Emboli
Patient with chronic thromboembolic disease
Pulmonary hypertension suspected secondary to above
-Vascular and Pulmonary consulted by ED
-Continue heparin drip. Stop heparin and switch to Eliquis
-No need for echocardiogram as patient to transition to hospice.
Dysphagia
-speech eval
Permanent Atrial Fibrillation
-Continue diltiazem and sotalol. monitor on tele.
Orthostatic Hypotension
-Continue midodrine
Hyperlipidemia
-Continue Crestor
Hypothyroidism
-Continue levothyroxine
Parkinson's Disease
-Continue carbidopa/levodopa and rivastigmine
Dementia
-Caregiver notes patient does sun-down
-Continue diazepam as prior to admission
-Patient is weaning off memantine
Code Status: Full Code
Discussed with patient daughter over the phone on 02/25.
Discussed with patient's son Rodrigo at bedside. Patient already has plan set up to be transition to hospice in AM. Son wants to take patient home as patient expressed to be going hospice.. Agreed for Eliquis. Will transition patient to p.o. and DC
home on hospice.
More than 30 minutes spent in discharge including
Final examination of the patient
Summarizing hospital stay
Instructions for continuing care to all relevant caregivers
Preparation of discharge records, prescriptions, and referral forms
Total time spent (in minutes): 52
Anticipated Discharge: Today
Subjective/Interval History
-
Date of Service: February 27, 2024
Patient awake and taking medication slowly
Remains on room air
Objective Data
-
Labs:
Laboratory Results
02/27/24 02/27/24
05:23 12:15
WBC 6.2
Hgb 10.5 L
Hct 31.7 L
Plt Count 175
APTT 62.4 H Pending
Sodium 136
Potassium 4.1
Chloride 102
Carbon Dioxide 28
BUN 15
Creatinine 0.6
Glucose 93
Calcium 8.7
Total Bilirubin 0.5
AST 22
ALT < 10
Alkaline Phosphatase 91
Vital Signs:
Vital Signs
Temp Pulse Resp BP Pulse Ox
97.4 F 77 19 160/99 98
02/27/24 09:03 02/27/24 09:03 02/27/24 09:03 02/27/24 09:03 02/27/24 09:03
I&O
02/26/24 02/27/24 02/28/24
06:59 06:59 06:59
Intake Total 720 / 720
Balance 720 / 720
--- NOTE | 2024-02-27 12:04 | PTCARENOTE ---
PT unable to take her pills this am due to severe dysphagia. family stated this is her baseline as she swallows better as she wakes up. Pt recieved all her am meds qat 1205. HEr Bp was rechecked for 162/88 will re check in one hour
[2024-02-27 12:06] VITALS: BP 162/88
--- NOTE | 2024-02-27 12:08 | W.DCSUMMARY ---
Discharge Summary
Discharge Data
Date of Admission: 02/25/24
Date of Discharge: 02/27/24
-
Pending Results: No
Hospital Course
88-year-old female past medical history of atrial fibrillation, orthostatic hypotension, hyperlipidemia, hypothyroidism, Parkinson disease, dementia is presenting from home with right lower extremity significant swelling. Patient was found to
extensive right lower extremity DVT. Patient went also underwent CT chest which showed patient had acute pulmonary embolism. Patient was also found to have chronic pulmonary embolism. Patient was started on heparin infusion. Patient was seen by
vascular surgery and pulmonary as they were consulted on admission. Patient did well with IV heparin. Discussed care with patient's son who stated initial plan was for patient to be transition to hospice and patient was being followed by
hospice on the palliative measures. Discussed with hospice team and plan will be to DC patient home and transition to hospice. Eliquis was prescribed. Discussed case with patient's son in detail at bedside and he agreed with the plan as he
stated patient did want aggressive measures and plan was hospice. Patient be discharged to home on hospice transported by son.
Discharge Plan
-
Patient Disposition: Home with Hospice
Discharge Diagnosis/Procedures: Acute extensive right lower extremity DVT
Acute pulmonary embolism
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
Condition: Fair
Diet: As tolerated
Activity: With assistance and As tolerated
Driving Restrictions: No driving
Referrals:
Jostin De La O Jr., [Family Provider] -
Prescriptions:
New
Eliquis 5 mg tablet
See Rx Instructions .ROUTE .COMPLEX Qty: 72 0RF
Rx Instructions:
Take 10mg po bid for additional 13 doses then 5mg po bid
Continued
rivastigmine 1 EACH patch 24 hour
13.3 mg transdermal DAILY
memantine 10 MG tablet
5 mg PO BID
Rx Instructions:
per caregiver, pt is being weaned off this medication - to take 5mg BID this week
levothyroxine [Synthroid] 75 mcg Tablet
75 mcg PO DAILY@0700
diltiazem HCl 120 MG capsule,extended release 24hr
120 mg PO DAILY
carbidopa-levodopa 25-100 mg tablet
3 tab PO QID
acetaminophen 500 mg Tablet
500 mg PO Q6HPRN PRN (Reason: mild pain)
melatonin 5 mg Tablet
5 - 10 mg PO HS
Thc Gummies
1 gummy PO HSPRN PRN (Reason: sleep)
sotalol 80 MG tablet
80 mg PO BID
midodrine 2.5 mg Tablet
5 mg PO TID
diazepam 2 mg Tablet
2 - 6 mg PO PRN PRN (Reason: agitation)
Rx Instructions:
pt can have 6 mg at one time or spread out over 4-6 hours
hydralazine 10 mg tablet
10 mg PO QID PRN (Reason: for sbp >200)
Discontinued
rosuvastatin 5 MG tablet
5 mg PO QPM
cholecalciferol (vitamin D3) [Vitamin D3] 50 mcg (2,000 unit) Capsule
50 mcg PO DAILY
Discharge Orders:
Discharge Patient (As Directed); Ordered 02/27/24
Ordered By: Duke Monahan
Discharge Date and Time
Discharge Date/Time: 02/27/24 14:10
Print Language: CUBAN
[2024-02-27] MEDS: ELIQUIS 10 MG PO (12:32)
[2024-02-27 12:39] VITALS: BP 160/88
--- NOTE | 2024-02-27 13:22 | CM ---
Met with delivery architect and son at patient's bedside; initial assessment and CM consult completed
IMM benefit explained to Son, form signed @ 1315
Preferred Pharmacy verified: [facility] @ [address] [facility]
Patient lives in a multilevel home; 1 step to enter; 13 steps to 2nd floor; Patient utilizes Chair Lift; powder room on 1st floor; patient's bed/bath on 2nd floor
PLOF: per private delivery architect,patient needs assistance with personal care and ADLs; and ambulated w/ Rollator; also may use rolling walker or wheelchair
Son and Caregiver will transport home via private car
Plan: Discharge to home with [facility]
== END 2024-02-27 14:10 | disposition hospice, home (50) | DRG 299 ==
LOC: 3 WEST ACU 22:11
PROVIDERS: Physician Assistant; Physician Assistant Medical; ADMITTING PHYSICIAN Internal Medicine; ATTENDING PHYSICIAN Hospitalist; CONSULT PHYSICIAN Internal Medicine Critical Care Medicine; CONSULT PHYSICIAN Surgery; EMERGENCY PHYSICIAN Emergency Medicine; FAMILY PHYSICIAN Family Medicine
DX: I82.431 Acute embolism and thrombosis of right popliteal vein (principal); I26.99 Other pulmonary embolism without acute cor pulmonale; I48.21 Permanent atrial fibrillation; I27.82 Chronic pulmonary embolism; J98.11 Atelectasis; I82.412 Acute embolism and thrombosis of left femoral vein; I27.24 Chronic thromboembolic pulmonary hypertension; G20.A1 Parkinson's disease without dyskinesia, without mention of fluctuations; F02.80 Dementia in other diseases classified elsewhere, unspecified severity, without behavioral disturbance, psychotic disturbance, mood disturbance, and anxiety; I95.1 Orthostatic hypotension; E78.00 Pure hypercholesterolemia, unspecified; R13.10 Dysphagia, unspecified; E03.9 Hypothyroidism, unspecified; N32.81 Overactive bladder; K21.9 Gastro-esophageal reflux disease without esophagitis; I10 Essential (primary) hypertension; D69.6 Thrombocytopenia, unspecified; E55.9 Vitamin D deficiency, unspecified; I73.00 Raynaud's syndrome without gangrene; R29.6 Repeated falls; I27.21 Secondary pulmonary arterial hypertension; Z95.0 Presence of cardiac pacemaker
CPT/HCPCS: 36415; 71275; 80048; 80053; 82962; 83880; 84443; 84484; 85025; 85027; 85610; 85730; 92610; 93005; 93971; 96365; 96366; 97163; 97167; 97530; 99285; Q9967